=== PATIENT | female | born 1935 | race Caucasian/White ===

== ENCOUNTER → 2016-08-08 | Outpatient (REF) | payer MEDICARE, OTHER ==
[2016-08-08 12:46] LABS: BASO # 0.1 K/mm3 (0.0-0.2); BASO % 0.6 % (0.0-1.0); EOS # 0.1 K/mm3 (0.0-0.50); EOS % 1.3 % (0.0-3.0); LARGE UNSTAINED CELL # 0.1 K/mm3 (0.0-0.4); LARGE UNSTAINED CELL % 1.1 % (0.0-4.0); LYMPH # 1.2 K/mm3 (1.5-4.5); LYMPH % 10.8 % (24.0-44.0); MEAN CORPUSCULAR HGB CONC 32.8 g/dl (32.0-36.5); MEAN CORPUSCULAR VOLUME 106.6 fl (80.0-96.0); MONO # 0.5 K/mm3 (0.0-0.8); NEUTROPHILS # 8.2 K/mm3 (1.8-7.7); NEUTROPHILS % 81.2 % (36.0-66.0); PLATELET COUNT, AUTOMATED 268 k/mm3 (150-450); RED CELL DISTRIBUTION WIDTH 11.9 % (11.5-14.5); WHITE BLOOD COUNT 10.1 K/mm3 (4.0-10.0)
[2016-08-08 13:19] LABS: ALBUMIN 4.1 GM/DL (3.2-5.2); ALBUMIN/GLOBULIN RATIO 1.32 (1.00-1.93); ALKALINE PHOSPHATASE 139 U/L (45-117); ALT/SGPT 19 U/L (12-78); ANION GAP 9 MEQ/L (8-16); AST/SGOT 17 U/L (15-37); BILIRUBIN,TOTAL 0.3 MG/DL (0.2-1.0); BLOOD UREA NITROGEN 21 MG/DL (7-18); CALCIUM LEVEL 9.1 MG/DL (8.8-10.2); CARBON DIOXIDE LEVEL 26 MEQ/L (21-32); CHLORIDE LEVEL 104 MEQ/L (98-107); CHOLESTEROL LEVEL 160 MG/DL (<200); CREATININE FOR GFR 0.81 MG/DL (0.55-1.02); FERRITIN 47 NG/ML (8-252); GLOMERULAR FILTRATION RATE > 60.0 (>39); GLUCOSE, FASTING 128 MG/DL (83-110); PERCENT SATURATION 17.2 % (13.2-37.4); SODIUM LEVEL 139 MEQ/L (136-145); TOTAL IRON BINDING CAPACITY 447 UG/DL (250-450); TOTAL PROTEIN 7.2 GM/DL (6.4-8.2); TRIGLYCERIDES LEVEL 285 MG/DL (<150)
[2016-08-08 13:22] LABS: POTASSIUM SERUM 5.5 MEQ/L (3.5-5.1)
== END ==
LOC: M SFHCADAM 09:21
PROVIDERS: ATTEND Physician Assistant Medical
DX: D75.89 Other specified diseases of blood and blood-forming organs (principal); E78.2 Mixed hyperlipidemia; K21.9 Gastro-esophageal reflux disease without esophagitis; Z79.899 Other long term (current) drug therapy
CPT/HCPCS: 80053; 80061; 82728; 83036; 83550; 84443; 85025; G0463

== ENCOUNTER → 2016-08-11 | Outpatient (REF) | payer MEDICARE, OTHER ==
[2016-08-11 13:18] LABS: ANION GAP 9 MEQ/L (8-16); BLOOD UREA NITROGEN 22 MG/DL (7-18); CALCIUM LEVEL 9.7 MG/DL (8.8-10.2); CARBON DIOXIDE LEVEL 25 MEQ/L (21-32); CHLORIDE LEVEL 105 MEQ/L (98-107); CREATININE FOR GFR 0.75 MG/DL (0.55-1.02); GLOMERULAR FILTRATION RATE > 60.0 (>39); GLUCOSE, FASTING 120 MG/DL (83-110); POTASSIUM SERUM 4.6 MEQ/L (3.5-5.1); SODIUM LEVEL 139 MEQ/L (136-145)
== END ==
LOC: M SFHCADAM 09:42
PROVIDERS: ATTEND Physician Assistant Medical
DX: Z51.81 Encounter for therapeutic drug level monitoring (principal); Z79.899 Other long term (current) drug therapy

== ENCOUNTER → 2016-11-24 | Outpatient (REF) | payer MEDICARE, OTHER ==
[~2016-11-24] MED LIST: AMIL25TA PO; AMIL5TA PO; ATEN50TA2 PO; CHLO1CAP14 PO; CRES20TA PO; DETR10TA PO; GABA-282 PO; GABA-283 PO; GLYCADSU PR; NEXI40CA PO; RAMI10CA PO; RAMI5CA PO; TOLT2TAB12 PO; TYLE1TAB5 PO; TYLE500T78 PO; VITA-110 PO; VITA100066 PO
[2016-11-24 19:21] LABS: BASO # 0.1 K/mm3 (0.0-0.2); BASO % 0.5 % (0.0-1.0); EOS % 0.4 % (0.0-3.0); LARGE UNSTAINED CELL # 0.2 K/mm3 (0.0-0.4); LARGE UNSTAINED CELL % 1.1 % (0.0-4.0); LYMPH % 7.8 % (24.0-44.0); MEAN CORPUSCULAR HEMOGLOBIN 35.3 pg (27.0-33.0); MEAN CORPUSCULAR HGB CONC 33.6 g/dl (32.0-36.5); MEAN CORPUSCULAR VOLUME 105.1 fl (80.0-96.0); MONO # 0.6 K/mm3 (0.0-0.8); MONO % 4.4 % (0.0-5.0); NEUTROPHILS # 11.1 K/mm3 (1.8-7.7); NEUTROPHILS % 85.8 % (36.0-66.0); PLATELET COUNT, AUTOMATED 350 k/mm3 (150-450); RED CELL DISTRIBUTION WIDTH 11.8 % (11.5-14.5); WHITE BLOOD COUNT 12.9 K/mm3 (4.0-10.0)
== END ==
LOC: M SFHCADAM 11:54
PROVIDERS: ATTEND Family Medicine
DX: K62.5 Hemorrhage of anus and rectum (principal)

== ENCOUNTER 2016-11-25 08:36 | Inpatient (IN) | payer MEDICARE, OTHER ==
[~2016-11-25] VITALS: Ht 157.5 cm; Wt 56.8 kg
[2016-11-25] MEDS ORDERED: VITA-110 PO (08:53)
[2016-11-25] MEDS ORDERED: GABA-283 PO (08:53)
[2016-11-25] MEDS ORDERED: ATEN50TA2 PO (08:53)
[2016-11-25] MEDS ORDERED: AMIL5TA PO (08:53)
[2016-11-25] MEDS ORDERED: NEXI40CA PO (08:53)
[2016-11-25] MEDS ORDERED: RAMI10CA PO (08:53)
[2016-11-25] MEDS ORDERED: CRES20TA PO (08:53)
[2016-11-25] MEDS ORDERED: DETR10TA PO (08:53)
[2016-11-25] MEDS ORDERED: PANTOPRAZOLE 40MG INJ (PROTONIX) (C9113) IV ONE (09:30)
--- NOTE | 2016-11-25 09:53 | REP ---
Clinical: GI bleed . Comparison: 01/21/2014 . Findings: The mediastinum and cardiac silhouette are stable and within normal limits for portable technique. The lung gauthier are clear without acute consolidation, effusion, or pneumothorax. Skeletal structures are intact. Impression: No acute cardiopulmonary process appreciated. Signed by Seamus Shi MD 11/25/2016 09:45 A
[2016-11-25] MEDS: NS 1,000 ML IV SCH ×2 (10:18→19:02)
[2016-11-25] MEDS ORDERED: AMIL25TA PO (10:19)
[2016-11-25] MEDS ORDERED: TYLE500T78 PO (10:19)
[2016-11-25] MEDS ORDERED: CHLO1CAP14 PO (10:19)
[2016-11-25] MEDS ORDERED: VITA100066 PO (10:19)
[2016-11-25] MEDS ORDERED: TYLE1TAB5 PO (10:19)
[2016-11-25] MEDS ORDERED: GABA-282 PO (10:19)
[2016-11-25] MEDS ORDERED: RAMI5CA PO (10:19)
[2016-11-25] MEDS ORDERED: TOLT2TAB12 PO (10:19)
[2016-11-25 10:24] LABS: BASO % 0.3 % (0.0-1.0); EOS # 0.1 K/mm3 (0.0-0.50); EOS % 0.8 % (0.0-3.0); LARGE UNSTAINED CELL # 0.1 K/mm3 (0.0-0.4); LARGE UNSTAINED CELL % 0.6 % (0.0-4.0); LYMPH # 0.9 K/mm3 (1.5-4.5); LYMPH % 8.3 % (24.0-44.0); MEAN CORPUSCULAR HEMOGLOBIN 34.7 pg (27.0-33.0); MEAN CORPUSCULAR HGB CONC 33.6 g/dl (32.0-36.5); MEAN CORPUSCULAR VOLUME 103.2 fl (80.0-96.0); MONO # 0.4 K/mm3 (0.0-0.8); MONO % 3.6 % (0.0-5.0); NEUTROPHILS # 8.8 K/mm3 (1.8-7.7); NEUTROPHILS % 86.4 % (36.0-66.0); PLATELET COUNT, AUTOMATED 276 k/mm3 (150-450); RED CELL DISTRIBUTION WIDTH 12.2 % (11.5-14.5); WHITE BLOOD COUNT 10.2 K/mm3 (4.0-10.0)
[2016-11-25 10:29] LABS: INR 0.91
[2016-11-25 10:55] LABS: ALBUMIN 4.1 GM/DL (3.2-5.2); ALBUMIN/GLOBULIN RATIO 1.05 (1.00-1.93); ALKALINE PHOSPHATASE 128 U/L (45-117); ALT/SGPT 18 U/L (12-78); ANION GAP 9 MEQ/L (8-16); AST/SGOT 18 U/L (15-37); BILIRUBIN,DIRECT 0.1 MG/DL (0.0-0.2); BILIRUBIN,TOTAL 0.4 MG/DL (0.2-1.0); BLOOD UREA NITROGEN 14 MG/DL (7-18); CALCIUM LEVEL 9.8 MG/DL (8.8-10.2); CARBON DIOXIDE LEVEL 26 MEQ/L (21-32); CHLORIDE LEVEL 105 MEQ/L (98-107); CREATININE FOR GFR 0.71 MG/DL (0.55-1.02); GLOMERULAR FILTRATION RATE > 60.0 (>39); GLUCOSE, FASTING 123 MG/DL (83-110); POTASSIUM SERUM 4.5 MEQ/L (3.5-5.1); SODIUM LEVEL 140 MEQ/L (136-145)
[2016-11-25] MEDS ORDERED: GASTROGRAFIN SOLUTION 30ML PO ONE (11:55)
[2016-11-25] MEDS ORDERED: GASTROGRAFIN SOLUTION 30ML (Q9963) PO ONE (12:25)
[2016-11-25] MEDS ORDERED: NICOTINE 21MG/24HR 1 EA TRANSDERMAL TD PRN (14:30)
[2016-11-25] MEDS: ACETAMINOPHEN 500 MG TAB PO SCH ×2 (16:00→20:20)
[2016-11-25 18:30] VITALS: BP 197/88
--- NOTE | 2016-11-25 19:35 | ECGEPIP ---
Stationary ECG Study [facility] - ED Test Date: 2016-11-25 Pat Name: JAYESH ANTOINE Department: Room: - Gender: F Heavy Equipment Operator: deepika : [id number] Requested By: Bay García Order Number: [id number] Reading MD: Bay García Measurements Intervals [place] Rate: 66 P: 58 [place]: 168 QRS: 24 QRSD: 105 T: 34 QT: 420 QTc: 441 Interpretive Statements SINUS RHYTHM WITH SINUS ARRHYTHMIA NONSPECIFIC ST T WAVE CHANGES NO OLD ECG FOR COMPARISON Electronically Signed On 11-25-2016 19:35:22 EDT by Bay García
[2016-11-25] MEDS: RAMIPRIL 5 MG CAP PO SCH (20:21)
[2016-11-25] MEDS: LIBRAX PO SCH (20:21)
[2016-11-25] MEDS: TOLTERODINE (DETROL) 2 MG TAB PO SCH (20:21)
[2016-11-25] MEDS: GABAPENTIN 300 MG CAP PO SCH (20:21)
[2016-11-25] MEDS ORDERED: VITAMIN D 1,000 INTERNATIONAL UNITS TABLET PO SCH (21:00)
[2016-11-25] MEDS ORDERED: ROSUVASTATIN 10 MG TAB (CRESTOR) PO SCH (21:00)
[2016-11-25] MEDS ORDERED: ATENOLOL 50 MG TAB PO SCH (21:00)
[2016-11-25 22:00] VITALS: BP 130/61
[2016-11-26] MEDS: NS 1,000 ML IV SCH ×2 (04:39→05:16)
[2016-11-26 06:00] VITALS: BP 148/67
[2016-11-26 07:12] LABS: MEAN CORPUSCULAR HEMOGLOBIN 35.2 pg (27.0-33.0); MEAN CORPUSCULAR HGB CONC 33.8 g/dl (32.0-36.5); MEAN CORPUSCULAR VOLUME 104.2 fl (80.0-96.0); RED CELL DISTRIBUTION WIDTH 11.9 % (11.5-14.5); WHITE BLOOD COUNT 7.5 K/mm3 (4.0-10.0)
[2016-11-26 07:26] LABS: ALBUMIN 3.4 GM/DL (3.2-5.2); ALBUMIN/GLOBULIN RATIO 1.03 (1.00-1.93); ALKALINE PHOSPHATASE 93 U/L (45-117); ALT/SGPT 18 U/L (12-78); ANION GAP 8 MEQ/L (8-16); AST/SGOT 21 U/L (15-37); BILIRUBIN,TOTAL 0.4 MG/DL (0.2-1.0); BLOOD UREA NITROGEN 11 MG/DL (7-18); CALCIUM LEVEL 7.9 MG/DL (8.8-10.2); CARBON DIOXIDE LEVEL 24 MEQ/L (21-32); CHLORIDE LEVEL 111 MEQ/L (98-107); CREATININE FOR GFR 0.63 MG/DL (0.55-1.02); FERRITIN 42 NG/ML (8-252); GLOMERULAR FILTRATION RATE > 60.0 (>39); GLUCOSE, FASTING 113 MG/DL (83-110); PERCENT SATURATION 29.7 % (13.2-45.0); POTASSIUM SERUM 4.1 MEQ/L (3.5-5.1); SODIUM LEVEL 143 MEQ/L (136-145); TOTAL IRON BINDING CAPACITY 367 UG/DL (250-450); TOTAL PROTEIN 6.7 GM/DL (6.4-8.2)
[2016-11-26] MEDS: TOLTERODINE (DETROL) 2 MG TAB PO SCH (08:42)
[2016-11-26] MEDS: GABAPENTIN 300 MG CAP PO SCH (08:42)
[2016-11-26 08:43] VITALS: BP 148/67
[2016-11-26] MEDS: RAMIPRIL 5 MG CAP PO SCH (08:43)
[2016-11-26] MEDS: LIBRAX PO SCH (08:43)
[2016-11-26] MEDS: ACETAMINOPHEN 500 MG TAB PO SCH (08:43)
[2016-11-26] MEDS ORDERED: aMILoride 5 MG TAB PO SCH (09:00)
[2016-11-26] MEDS ORDERED: PANTOPRAZOLE 40MG TAB (PROTONIX) PO SCH (09:00)
--- NOTE | 2016-11-26 20:42 | CR ---
DATE OF CONSULTATION: 11/25/2016 REASON FOR CONSULTATION: Lower GI bleeding. HISTORY OF PRESENT ILLNESS: The patient is a 81-year-old female who presented to her primary clinic on 11/24/2016, with complaints of lower GI bleeding. She does have a history of diverticulosis and with this painless bleeding, it was assumed that this was likely a diverticular bleed. She was advised that if this continued to come to the emergency room for evaluation. Since her visit to the office she has had four more episodes of this bleeding, so she came into the ER for evaluation. Her hemoglobin has been stable, it was 14 on admission, so she did not require any transfusions. The plan was to admit her to the hospital with a clear liquid diet and monitor her for any continued bleeding. I was asked to evaluate in case the bleeding did not stop and in case she were to need a colonoscopy. She denies having any problems with bleeding like this in the past. She has no clots or melanotic stools. It is all bright red blood. No pain with bowel movements. Denies any nausea or vomiting. No fevers or chills. No recent trauma or travel or change in diet. PAST MEDICAL HISTORY: Hyperlipidemia, hypertension, interstitial cystitis peripheral neuropathy, gastroesophageal reflux disease, osteoporosis. ALLERGIES: BACTRIM. PAST SURGICAL HISTORY: Back surgery, EGD and colonoscopy in 2013. FAMILY HISTORY: Noncontributory. SOCIAL HISTORY: Denies any drug or alcohol abuse. Smokes 6-10 cigarettes a day. REVIEW OF SYSTEMS: Pertinent positives and negative as stated in the HPI. PHYSICAL EXAMINATION: General: Patient alert and oriented times three. No acute distress. Vital signs: Temperature 98.3, pulse 72, respirations 16, blood pressure 182/88, pulse oximetry 96% on room air. HEENT: Pupils equally round and reactive to light and accommodation. Heart: S1, S2, regular rate and rhythm. Lungs: Clear to auscultation bilaterally. Abdomen: Soft, nontender, nondistended. Bowel sounds positive. Extremities: No clubbing, cyanosis or edema. LABORATORY DATA: White count 10.2, hemoglobin 14, platelets 276, INR 0.91, sodium 140, potassium of 4.5, creatinine 0.71. ASSESSMENT/PLAN: The patient is a 81-year-old female with bright red blood per rectum likely secondary to a lower GI bleed from diverticulosis. Recommendation at this time is to keep her on a clear liquid diet and monitor her for 24 hours with serial hemoglobins and hematocrits. If she shows signs of continued bloody bowel movements and continued bleeding, she may be a candidate for lower endoscopy. However, as a diverticular bleed, there is a good chance that this will resolve on its own without any intervention necessary. I will continue to monitor the patient during her hospital stay with further recommendations to follow.
--- NOTE | 2016-11-27 00:50 | DS.PDOC ---
Discharge Summary General Date of Admission Nov 25, 2016 at 14:26 Date of Discharge 11/26/2016 Primary Care Physician: GODWIN CHAMORRO PA-C Attending Physician: Jerardo Cristobal MD Specialist/Consultants Involve: JENNIFER BRONSON DO Discharge Summary ADMITTING DIAGNOSES: 1. Bright red blood per rectum. 2. Nicotine dependence, cigarette. 3. GERD. 4. Hypertension 5. Mixed hyperlipidemia DISCHARGE DIAGNOSES: 1. Bright red blood per rectum, resolved. 2. Cigarette nicotine dependence. 3. GERD. 4. Hypertension. 5. Mixed hyperlipidemia PROCEDURES PERFORMED DURING STAY: None. ADMISSION HISTORY: Ms. Guy came to the emergency department for evaluation of a 2 day history of bright red blood per rectum. This is the first time this had ever happened to her. Please see the admission history and physical (on eCW ) for the remaining details. HOSPITAL COURSE: Ms. Guy came to the ER the day after she had been seen in the clinic. She had episodes of bright red blood per rectum on each of these days. Dr. Bronson was consulted he reviewed her colonoscopy information from 2013. He felt the bleeding was likely diverticular or possibly from internal hemorrhoids. He recommended conservative therapy. She did have 2 small bowel movements while in the emergency department. Fortunately after that she did not have any more bloody bowel movements. After about 24 hours with no bloody bowel movements her diet was advanced. She tolerated a regular diet. Her hemoglobin had fallen about 2 g down to 12.6 during the admission. Once she was tolerating a regular diet she was offered the option of staying overnight to verify stability of her hemoglobin or going home with lab follow-up in 2 days. She preferred to go home. DISCHARGE CONDITION: Stable. FOLLOW-UP: An appointment was scheduled with TARA Rodriguez on 11/30/16 at 11 :00 prior to discharge. DIET: Heart healthy. ACTIVITY: As tolerated. DISCHARGE MEDICATIONS: Please see below. ALLERGIES: Please see below. LABORATORY DATA: Please see below. IMAGING: Chest x-ray was done on 11/25/16 DISCHARGE INSTRUCTIONS: 1. Please get a CBC done on 11/28/16 at the [facility]. The patient was sent home with an order. ITEMS TO FOLLOWUP ON ON OUTPATIENT: 1.? Follow with Dr. Bronson for repeat colonoscopy versus continued monitoring. Vital Signs/I&Os Vital Signs Date Time Temp Pulse Resp B/P (MAP) Pulse Ox O2 Delivery O2 Flow Rate FiO2 11/26/16 08:43 148/67 11/26/16 06:00 98.9 61 20 92 Room Air I&O- Last 24 Hours up to 6 AM 11/27/16 05:59 Intake Total 120 ml Output Total 1250 ml Balance -1130 ml Laboratory Data Labs 24H Laboratory Tests 2 11/26/16 06:45: Anion Gap 8, Glomerular Filtration Rate > 60.0, Blood Urea Nitrogen 11, Creatinine 0.63, Sodium Level 143, Potassium Level 4.1, Chloride Level 111H, Carbon Dioxide Level 24, Calcium Level 7.9#L, Aspartate Amino Transf (AST/SGOT) 21, Alanine Aminotransferase (ALT/SGPT) 18, Alkaline Phosphatase 93, Total Bilirubin 0.4, Total Protein 6.7, Albumin 3.4, Iron Level 109, Total Iron Binding Capacity 367, Transferrin % Saturation 29.7, Ferritin 42, Albumin/ Globulin Ratio 1.03 CBC/BMP Laboratory Tests 11/26/16 06:45 Red Blood Count 3.57 L, Mean Corpuscular Volume 104.2 H, Mean Corpuscular Hemoglobin 35.2 H, Mean Corpuscular Hemoglobin Concent 33.8, Red Cell Distribution Width 11.9, Calcium Level 7.9 #L, Aspartate Amino Transf (AST/SGOT ) 21, Alanine Aminotransferase (ALT/SGPT) 18, Alkaline Phosphatase 93, Total Bilirubin 0.4, Total Protein 6.7, Albumin 3.4 Discharge Medications Scheduled (Tylenol Pm Extra Strength 500-25 mg) 1 Tab Tab, 1 TAB PO QHS, (Reported) Acetaminophen (Tylenol Extra Strength) 500 Mg Tab, 500 MG PO TID, (Reported) AM, NOON, HS Amiloride HCl (Amiloride HCl) 2.5 Mg Tab, 2.5 MG PO DAILY, (Reported) Atenolol (Atenolol) 50 Mg Tab, 50 MG PO QHS, (Reported) Chlordiazepoxide/Clidinium (Chlordiazepoxide HCl/Clid 2.5-5 mg) 1 Cap Cap, 1 CAP PO BID, (Reported) Cholecalciferol (Vitamin D) 1,000 Unit Tab, 1,000 UNIT PO QHS, (Reported) Esomeprazole Magnesium Trihydr (Nexium) 40 Mg Cap, 40 MG PO DAILY, (Reported) Gabapentin (Gabapentin) 300 Mg Cap, 300 MG PO BID, (Reported) Ramipril (Ramipril) 5 Mg Cap, 5 MG PO BID, (Reported) Rosuvastatin Calcium (Crestor) 20 Mg Tab, 20 MG PO QHS, (Reported) Tolterodine Tartrate (Tolterodine Tartrate) 2 Mg Tab, 2 MG PO BID, (Reported) Allergies Coded Allergies: Sulfamethoxazole w/Trimethoprim (Verified Allergy, Unknown, 11/25/16) Jerardo Cristobal MD Nov 27, 2016 00:50
== END 2016-11-26 19:10 | disposition home or self-care (01) | DRG 379 ==
LOC: M ED 08:36 → M ED INP 14:26 → UNDODISIN 15:30 → M MS5PR 18:14
PROVIDERS: ADMIT Family Medicine; ATTEND Family Medicine
DX: K62.5 Hemorrhage of anus and rectum (principal); E78.2 Mixed hyperlipidemia; I10 Essential (primary) hypertension; G62.9 Polyneuropathy, unspecified; K21.9 Gastro-esophageal reflux disease without esophagitis; M81.0 Age-related osteoporosis without current pathological fracture; F17.210 Nicotine dependence, cigarettes, uncomplicated; Z79.899 Other long term (current) drug therapy; Z88.2 Allergy status to sulfonamides

== ENCOUNTER → 2016-11-28 | Outpatient (REF) | payer MEDICARE, OTHER ==
[2016-11-28 14:25] LABS: MEAN CORPUSCULAR HEMOGLOBIN 35.2 pg (27.0-33.0); MEAN CORPUSCULAR HGB CONC 33.9 g/dl (32.0-36.5); MEAN CORPUSCULAR VOLUME 103.8 fl (80.0-96.0); RED CELL DISTRIBUTION WIDTH 11.6 % (11.5-14.5); WHITE BLOOD COUNT 9.4 K/mm3 (4.0-10.0)
== END ==
LOC: M LABDRWAD 13:42
PROVIDERS: ATTEND Family Medicine
DX: K92.2 Gastrointestinal hemorrhage, unspecified (principal)

== ENCOUNTER → 2016-12-29 | Outpatient (REF) | payer MEDICARE, OTHER | LOC: M SFHCADAM 09:32 | PROVIDERS: ATTEND Physician Assistant Medical | DX: R31.9 Hematuria, unspecified (principal); N30.10 Interstitial cystitis (chronic) without hematuria; K59.01 Slow transit constipation ==

== ENCOUNTER 2017-02-04 10:37 | Emergency (ER) | payer MEDICARE, OTHER ==
[~2017-02-04] VITALS: Ht 157.5 cm; Wt 56.8 kg
[~2017-02-04 10:37] MED LIST changes: -GLYCADSU PR
[2017-02-04] MEDS ORDERED: NS 1,000 ML IV ONE (12:45)
[2017-02-04 13:14] LABS: BASO # 0.1 10^3/uL (0.0-0.2); BASO % 0.6 % (0.0-1.0); EOS # 0.1 10^3/uL (0.0-0.50); EOS % 0.8 % (0.0-3.0); IMMATURE GRANULOCYTE % 0.5 % (0-0); LYMPH # 1.3 10^3/uL (1.5-4.5); LYMPH % 12.4 % (24.0-44.0); MEAN CORPUSCULAR HEMOGLOBIN 34.1 pg (27.0-33.0); MEAN CORPUSCULAR HGB CONC 32.2 g/dl (32.0-36.5); MEAN CORPUSCULAR VOLUME 105.9 fl (80.0-96.0); MONO # 0.7 10^3/uL (0.0-0.8); MONO % 6.4 % (0.0-5.0); NEUTROPHILS # 8.6 10^3/uL (1.8-7.7); NEUTROPHILS % 79.3 % (36.0-66.0); PLATELET COUNT, AUTOMATED 346 10^3/uL (150-450); WHITE BLOOD COUNT 10.8 10^3/uL (4.0-10.0)
[2017-02-04 13:35] LABS: INR 0.93
[2017-02-04 13:37] LABS: ANION GAP 6 MEQ/L (8-16); BLOOD UREA NITROGEN 9 MG/DL (7-18); CALCIUM LEVEL 9.4 MG/DL (8.8-10.2); CARBON DIOXIDE LEVEL 30 MEQ/L (21-32); CHLORIDE LEVEL 105 MEQ/L (98-107); GLOMERULAR FILTRATION RATE > 60.0 (>39); GLUCOSE, FASTING 104 MG/DL (83-110); POTASSIUM SERUM 3.5 MEQ/L (3.5-5.1); SODIUM LEVEL 141 MEQ/L (136-145)
[2017-02-04] MEDS ORDERED: ISOVUE-370 76% 100ML VIAL (Q9967) As Ordered ONE (13:37)
--- NOTE | 2017-02-04 14:55 | REP ---
CT ABDOMEN AND PELVIS WITH CONTRAST: HISTORY: Abdominal pain. CONTRAST: Isovue 370, 100 mL. Multiple cysts are present in the kidneys. These range from 0.4 to 4.5 cm in size. A right extrarenal pelvis is present. The liver, gallbladder, pancreas, spleen, and adrenal glands are normal in appearance. There is no mass, adenopathy or free fluid. The visualized lungs are clear. The urinary bladder and uterus are normal in appearance. Degenerative change is present in the spine. IMPRESSION: Multiple bilateral renal cysts. Signed by Dilan Ritter MD 02/04/2017 03:47 P
[2017-02-04] MEDS ORDERED: GLYCADSU PR (15:28)
[2017-02-04 15:52] VITALS: BP 195/103
== END 2017-02-04 15:57 | disposition home or self-care (01) ==
LOC: M ED 10:37
DX: K59.00 Constipation, unspecified (principal); K56.41 Fecal impaction; I10 Essential (primary) hypertension; Z72.0 Tobacco use
CPT/HCPCS: 74177; 80048; 81001; 85025; 85610; 96360; 96361; 99284; Q9967

== ENCOUNTER → 2017-02-22 | Outpatient (REF) | payer MEDICARE, OTHER ==
[~2017-02-22] MED LIST changes: +AMIT25TA PO; +GLYCADSU PR
== END ==
LOC: M SFHCADAM 14:23
PROVIDERS: ATTEND Physician Assistant Medical
DX: N30.10 Interstitial cystitis (chronic) without hematuria (principal)

== ENCOUNTER 2017-03-01 12:14 | Day surgery (SDC) | payer MEDICARE, OTHER ==
[~2017-03-01] VITALS: Ht 157.5 cm; Wt 55.8 kg
[~2017-03-01 12:14] MED LIST changes: +OFLOXACIN 0.3 % (OCUFLOX) OPTH SOL 5ML OS ONE; +PHENYLEPHRINE 2.5% OPHTH SOL 2ML OS ONE; +PROPARACAINE 0.5% OPHTH SOL 15ML OS ONE; +TROPICAMIDE 1% OPHTH SOLN 2ML OS ONE
[2017-03-01] MEDS ORDERED: POVIDONE-IODINE 5% OPHTH PREP SOL 30ML As Ordered ONE (13:40)
[2017-03-01] MEDS ORDERED: ACETYLCHOLINE OPHTH SOLN 1% 2ML (MIOCHOL-E) As Ordered ONE (13:40)
[2017-03-01] MEDS ORDERED: BALANCED SALT IRRIGATION SOLUTION 500ML BAG (FOR OR EYE MACHINE) As Ordered ONE (13:40)
[2017-03-01] MEDS ORDERED: DUOVISC (0.50ML VISCOAT/0.55ML PROVISC) OPHTH KIT As Ordered ONE (13:41)
[2017-03-01] MEDS ORDERED: LIDOCAINE 0.75%/EPINEPHRINE 0.025% IN BSS 1ML SYR INTRACAMERAL (OR ONLY) As Ordered ONE (13:41)
[2017-03-01] MEDS ORDERED: CEFUROXIME 1MG/0.1ML INTRACAMERAL INJ As Ordered ONE (13:41)
[2017-03-01] MEDS ORDERED: MIDAZOLAM INJ 2 MG/2 ML VIAL (J2250) As Ordered ONE (14:06)
[2017-03-01] MEDS ORDERED: fentaNYL 100 MCG/2 ML INJECTION (J3010) As Ordered ONE (14:06)
[2017-03-01 15:20] VITALS: BP 148/68
== END 2017-03-01 15:21 | disposition home or self-care (01) ==
LOC: M SDC 12:14
PROVIDERS: ATTEND Ophthalmology
DX: H25.12 Age-related nuclear cataract, left eye (principal); I10 Essential (primary) hypertension; E78.5 Hyperlipidemia, unspecified; K59.00 Constipation, unspecified; Z79.899 Other long term (current) drug therapy; Z88.2 Allergy status to sulfonamides
CPT/HCPCS: 66984; J2250; V2632

== ENCOUNTER → 2017-03-02 | Outpatient (REF) | payer MEDICARE, OTHER ==
[~2017-03-02] MED LIST changes: -OFLOXACIN 0.3 % (OCUFLOX) OPTH SOL 5ML OS ONE; -PHENYLEPHRINE 2.5% OPHTH SOL 2ML OS ONE; -PROPARACAINE 0.5% OPHTH SOL 15ML OS ONE; -TROPICAMIDE 1% OPHTH SOLN 2ML OS ONE
--- NOTE | 2017-03-02 19:36 | RO ---
DATE OF PROCEDURE: 03/02/2017 PREOPERATIVE DIAGNOSIS: Visually significant nuclear sclerotic cataract left eye. POSTOPERATIVE DIAGNOSIS: Visually significant nuclear sclerotic cataract left eye. PROCEDURE: Cataract extraction with use of phacoemulsification and placement of intraocular lens, AU00T0 21.5, left eye. SURGEON: Demond Pollard DO KAITARA TARAKA: ANESTHESIA: Local with monitored anesthesia care (MAC). COMPLICATIONS: None. POSTOPERATIVE CONDITION: Stable. INDICATION FOR SURGERY: Blurred vision left eye affecting patient's activities of daily living. DESCRIPTION OF PROCEDURE: The patient was seen in the preoperative area and properly identified. The correct operative eye was identified and marked. Attention was turned to that eye. The patient received topical antibiotics in the preoperative area. The patient then received topical dilating drops consisting of tropicamide and phenylephrine. The patient was then transferred to the operating room. The correct side was re-identified. The patient received topical anesthetics and antibiotics on the surface of the eye. The eye was prepped and draped in a sterile fashion. The upper and lower eyelids were isolated with Tegaderm tape, and the lids were held open with an adjustable speculum. Using a sideport blade, a paracentesis incision was made. Intraocular preservative-free lidocaine was then injected into the anterior chamber. Viscoelastic was then injected into the anterior chamber through the paracentesis. Using a 2.4 mm sharp-tipped keratome, the anterior chamber was entered via a temporal clear corneal incision. A continuous curvilinear capsulorrhexis was created with the aid of a 26-gauge cystotome and Utrata forceps. Hydrodissection was performed with balanced salt solution (BSS) on a blunt cannula until the nucleus was freely mobile. The crystalline lens was phacoemulsified and aspirated. Additional cohesive viscoelastic was placed into the capsular bag to deepen it. An AU00T0 21.5 lens was placed into the capsular bag and confirmed by visualizing the continuous curvilinear capsulorrhexis. Additional irrigation and aspiration was used to remove cortical material and remaining viscoelastic. The clear corneal incision was hydrated with BSS on a blunt cannula. The lens was well positioned. The incisions were then tested for leaks and found to be negative. The eye was then palpated for appropriate pressure and adjusted accordingly with BSS. The eyelid speculum was carefully removed. A shield was placed over the eye. The patient tolerated the procedure well and was discharged to the recovery unit in a stable condition. WILNER
== END ==
LOC: M SFHCADAM 14:38
PROVIDERS: ATTEND Physician Assistant Medical
DX: N30.10 Interstitial cystitis (chronic) without hematuria (principal)

== ENCOUNTER → 2017-03-15 | Outpatient (REF) | payer MEDICARE, OTHER ==
[~2017-03-15] MED LIST changes: +ACET-683 PO; +BROM0.07 OS; +MACR100C43 PO; +PREDOPD OS
== END ==
LOC: M SFHCADAM 12:03
PROVIDERS: ATTEND Physician Assistant Medical
DX: R30.0 Dysuria (principal)

== ENCOUNTER 2017-03-19 18:11 | Inpatient (IN) | payer MEDICARE, OTHER ==
[2017-03-19 19:05] LABS: BASO % 0.3 % (0.0-1.0); EOS # 0.4 10^3/uL (0.0-0.50); IMMATURE GRANULOCYTE # 0.1 10^3/uL (0-0); IMMATURE GRANULOCYTE % 0.5 % (0-0); LYMPH # 0.6 10^3/uL (1.5-4.5); LYMPH % 5.2 % (24.0-44.0); MEAN CORPUSCULAR HEMOGLOBIN 33.2 pg (27.0-33.0); MEAN CORPUSCULAR HGB CONC 32.5 g/dl (32.0-36.5); MEAN CORPUSCULAR VOLUME 102.3 fl (80.0-96.0); MONO # 0.9 10^3/uL (0.0-0.8); NEUTROPHILS # 10.4 10^3/uL (1.8-7.7); PLATELET COUNT, AUTOMATED 384 10^3/uL (150-450); RED CELL DISTRIBUTION WIDTH 11.9 % (11.5-14.5); WHITE BLOOD COUNT 12.4 10^3/uL (4.0-10.0)
[2017-03-19 19:18] LABS: INR 0.95
[2017-03-19] MEDS: NS 1,000 ML IV (19:24)
[2017-03-19] MEDS: MORPHINE 4 MG/ML 1ML SYRINGE IV ×2 (19:25→21:37)
[2017-03-19 19:30] LABS: ALBUMIN 3.2 GM/DL (3.2-5.2); ALBUMIN/GLOBULIN RATIO 0.91 (1.00-1.93); ALKALINE PHOSPHATASE 166 U/L (45-117); ALT/SGPT 13 U/L (12-78); ANION GAP 8 MEQ/L (8-16); AST/SGOT 16 U/L (7-37); BILIRUBIN,DIRECT 0.1 MG/DL (0.0-0.2); BILIRUBIN,TOTAL 0.3 MG/DL (0.2-1.0); BLOOD UREA NITROGEN 9 MG/DL (7-18); CALCIUM LEVEL 8.2 MG/DL (8.8-10.2); CARBON DIOXIDE LEVEL 26 MEQ/L (21-32); CHLORIDE LEVEL 108 MEQ/L (98-107); CREATININE FOR GFR 0.43 MG/DL (0.55-1.02); GLOMERULAR FILTRATION RATE > 60.0 (>39); GLUCOSE, FASTING 129 MG/DL (83-110); POTASSIUM SERUM 3.5 MEQ/L (3.5-5.1); SODIUM LEVEL 142 MEQ/L (136-145); TOTAL PROTEIN 6.7 GM/DL (6.4-8.2)
[2017-03-19 19:30] LABS: LACTIC ACID SEPSIS PROTOCOL 0.8 MMOL/L (0.4-2.0)
[2017-03-19] MEDS ORDERED: ISOVUE-370 76% 100ML VIAL (Q9967) As Ordered (19:32)
[2017-03-19 19:33] LABS: KETONE, URINE AUTO RFX 1+ mg/dL (NEGATIVE); NITRITE, URINE AUTO RFX NEGATIVE (NEGATIVE); RBC, URINE AUTO RFX 30 /HPF (0-3); SPECIFIC GRAVITY UR AUTO RFX 1.012 (1.002-1.035); SQUAM EPITHELIAL CELL UR AURFX 1 /HPF (0-6)
[2017-03-19 19:34] LABS: LEUKOCYTE ESTERASE UR AUTO RFX 1+ (NEGATIVE); WBC, URINE AUTO RFX 19 /HPF (0-3)
[2017-03-19] MEDS ORDERED: CIPROFLOXACIN 500 MG TAB PO (20:15)
[2017-03-19] MEDS: hydrALAZINE INJ 20 MG/ML VIAL IV (21:00)
[2017-03-19] MEDS: prednisoLONE ACET 1% OPHTH SUSP 5ML OS (21:00)
[2017-03-19] MEDS: RAMIPRIL 5 MG CAP PO (21:38)
[2017-03-19] MEDS ORDERED: MORPHINE 2 MG/ML 1ML SYRINGE IV (23:30)
[2017-03-20] MEDS ORDERED: PANTOPRAZOLE 40MG INJ (PROTONIX) (C9113) IV
[2017-03-20] MEDS: ONDANSETRON 4MG/2ML VIAL (J2405) IV ×2 (00:07→08:20)
[2017-03-20] MEDS: PIPERACILLIN/TAZOBACTAM SOD 3.375 GM in APPROPRIATE DILUENT 1 EA IV ×5 (00:14→23:59)
[2017-03-20] MEDS: NS 1,000 ML IV ×4 (00:15→20:03)
[2017-03-20 05:12] LABS: MEAN CORPUSCULAR HEMOGLOBIN 32.9 pg (27.0-33.0); MEAN CORPUSCULAR HGB CONC 32.1 g/dl (32.0-36.5); MEAN CORPUSCULAR VOLUME 102.5 fl (80.0-96.0); PLATELET COUNT, AUTOMATED 380 10^3/uL (150-450); WHITE BLOOD COUNT 11.8 10^3/uL (4.0-10.0)
[2017-03-20 05:36] LABS: ALBUMIN 2.7 GM/DL (3.2-5.2); ALBUMIN/GLOBULIN RATIO 0.71 (1.00-1.93); ALKALINE PHOSPHATASE 132 U/L (45-117); ALT/SGPT 11 U/L (12-78); AMYLASE 109 U/L (25-115); ANION GAP 8 MEQ/L (8-16); AST/SGOT 11 U/L (7-37); BILIRUBIN,TOTAL 0.2 MG/DL (0.2-1.0); BLOOD UREA NITROGEN 7 MG/DL (7-18); CALCIUM LEVEL 7.6 MG/DL (8.8-10.2); CARBON DIOXIDE LEVEL 25 MEQ/L (21-32); CHLORIDE LEVEL 112 MEQ/L (98-107); CREATININE FOR GFR 0.42 MG/DL (0.55-1.02); GLOMERULAR FILTRATION RATE > 60.0 (>39); GLUCOSE, FASTING 124 MG/DL (83-110); POTASSIUM SERUM 3.2 MEQ/L (3.5-5.1); SODIUM LEVEL 145 MEQ/L (136-145); TOTAL PROTEIN 6.5 GM/DL (6.4-8.2)
[2017-03-20] MEDS: PANTOPRAZOLE 40MG INJ (PROTONIX) (C9113) IV (08:19)
[2017-03-20] MEDS: prednisoLONE ACET 1% OPHTH SUSP 5ML OS ×3 (08:20→20:27)
[2017-03-20] MEDS: hydrALAZINE INJ 20 MG/ML VIAL IV ×4 (08:20→20:27)
[2017-03-20 10:04] LABS: MAGNESIUM LEVEL 1.6 MG/DL (1.8-2.4)
[2017-03-20] MEDS: PROMETHAZINE INJ 25 MG/ML VIAL (J2550) IV (10:11)
[2017-03-20] MEDS: KCL 10MEQ IN 100ML SWI (KRUN) 10 MEQ in APPROPRIATE DILUENT 1 EA IV ×5 (11:00→20:26)
[2017-03-20] MEDS ORDERED: PROMETHAZINE INJ 25 MG/ML VIAL (J2550) IV (13:30)
[2017-03-20] MEDS: ACETAMINOPHEN 500 MG TAB PO ×2 (13:31→20:26)
[2017-03-20] MEDS ORDERED: KCL 10MEQ IN STERILE WATER 100ML As Ordered (20:18)
[2017-03-21] MEDS: NS 1,000 ML IV (03:15)
[2017-03-21 05:12] LABS: MEAN CORPUSCULAR HEMOGLOBIN 32.6 pg (27.0-33.0); MEAN CORPUSCULAR HGB CONC 31.3 g/dl (32.0-36.5); PLATELET COUNT, AUTOMATED 364 10^3/uL (150-450); RED CELL DISTRIBUTION WIDTH 12.4 % (11.5-14.5); WHITE BLOOD COUNT 11.5 10^3/uL (4.0-10.0)
[2017-03-21 05:31] LABS: ALBUMIN 2.5 GM/DL (3.2-5.2); ALBUMIN/GLOBULIN RATIO 0.66 (1.00-1.93); ALKALINE PHOSPHATASE 123 U/L (45-117); ALT/SGPT 11 U/L (12-78); ANION GAP 9 MEQ/L (8-16); AST/SGOT 11 U/L (7-37); BILIRUBIN,TOTAL 0.3 MG/DL (0.2-1.0); BLOOD UREA NITROGEN 7 MG/DL (7-18); CALCIUM LEVEL 7.9 MG/DL (8.8-10.2); CARBON DIOXIDE LEVEL 23 MEQ/L (21-32); CHLORIDE LEVEL 112 MEQ/L (98-107); GLOMERULAR FILTRATION RATE > 60.0 (>39); GLUCOSE, FASTING 90 MG/DL (83-110); POTASSIUM SERUM 3.1 MEQ/L (3.5-5.1); SODIUM LEVEL 144 MEQ/L (136-145); TOTAL PROTEIN 6.3 GM/DL (6.4-8.2)
[2017-03-21] MEDS: PIPERACILLIN/TAZOBACTAM SOD 3.375 GM in APPROPRIATE DILUENT 1 EA IV ×2 (05:36→13:06)
[2017-03-21] MEDS: KCL 10MEQ IN 100ML SWI (KRUN) 10 MEQ in APPROPRIATE DILUENT 1 EA IV ×4 (06:12→11:17)
[2017-03-21] MEDS: PANTOPRAZOLE 40MG INJ (PROTONIX) (C9113) IV (10:03)
[2017-03-21] MEDS: hydrALAZINE INJ 20 MG/ML VIAL IV ×2 (10:04→13:08)
[2017-03-21] MEDS: MAG SULF 1GM/100ML (MAG RUN) 1 GM in APPROPRIATE DILUENT 1 EA IV (10:04)
[2017-03-21] MEDS: prednisoLONE ACET 1% OPHTH SUSP 5ML OS ×3 (10:05→20:01)
[2017-03-21] MEDS: POTASSIUM CHLORIDE 10 MEQ SR TABLET PO (13:07)
[2017-03-21] MEDS: RAMIPRIL 5 MG CAP PO ×2 (15:16→19:59)
[2017-03-21] MEDS: ACETAMINOPHEN 500 MG TAB PO (15:26)
[2017-03-21] MEDS: ATENOLOL 50 MG TAB PO (20:00)
[2017-03-22 07:12] LABS: MEAN CORPUSCULAR HEMOGLOBIN 32.6 pg (27.0-33.0); MEAN CORPUSCULAR HGB CONC 31.6 g/dl (32.0-36.5); MEAN CORPUSCULAR VOLUME 102.9 fl (80.0-96.0); PLATELET COUNT, AUTOMATED 404 10^3/uL (150-450); RED CELL DISTRIBUTION WIDTH 12.2 % (11.5-14.5); WHITE BLOOD COUNT 12.5 10^3/uL (4.0-10.0)
[2017-03-22 07:29] LABS: ALBUMIN 2.9 GM/DL (3.2-5.2); ALBUMIN/GLOBULIN RATIO 0.71 (1.00-1.93); ALKALINE PHOSPHATASE 134 U/L (45-117); ALT/SGPT 12 U/L (12-78); ANION GAP 8 MEQ/L (8-16); AST/SGOT 14 U/L (7-37); BILIRUBIN,TOTAL 0.3 MG/DL (0.2-1.0); BLOOD UREA NITROGEN 8 MG/DL (7-18); CALCIUM LEVEL 8.4 MG/DL (8.8-10.2); CARBON DIOXIDE LEVEL 24 MEQ/L (21-32); CHLORIDE LEVEL 112 MEQ/L (98-107); CREATININE FOR GFR 0.44 MG/DL (0.55-1.02); GLOMERULAR FILTRATION RATE > 60.0 (>39); GLUCOSE, FASTING 112 MG/DL (83-110); MAGNESIUM LEVEL 1.9 MG/DL (1.8-2.4); POTASSIUM SERUM 3.8 MEQ/L (3.5-5.1); SODIUM LEVEL 144 MEQ/L (136-145)
[2017-03-22] MEDS: RAMIPRIL 5 MG CAP PO (08:27)
[2017-03-22] MEDS: PANTOPRAZOLE 40MG INJ (PROTONIX) (C9113) IV (08:27)
[2017-03-22] MEDS: prednisoLONE ACET 1% OPHTH SUSP 5ML OS (08:28)
== END 2017-03-22 10:17 | disposition home or self-care (01) | DRG 440 ==
LOC: M PCU 03-20 01:18 → M MS4PR 03-21 21:38 → M ED 18:11 → M ED INP 23:16
DX: K85.90 Acute pancreatitis without necrosis or infection, unspecified (principal); N30.90 Cystitis, unspecified without hematuria; K21.9 Gastro-esophageal reflux disease without esophagitis; I10 Essential (primary) hypertension; E78.5 Hyperlipidemia, unspecified; E83.42 Hypomagnesemia; E87.6 Hypokalemia; K59.00 Constipation, unspecified; D64.9 Anemia, unspecified; D49.4 Neoplasm of unspecified behavior of bladder; F17.210 Nicotine dependence, cigarettes, uncomplicated; Z79.899 Other long term (current) drug therapy; Z79.52 Long term (current) use of systemic steroids; Z88.8 Allergy status to other drugs, medicaments and biological substances

== ENCOUNTER → 2017-03-27 | Outpatient (REF) | payer MEDICARE, OTHER ==
[2017-03-27 12:55] LABS: BASO # 0.1 10^3/uL (0.0-0.2); BASO % 0.5 % (0.0-1.0); EOS # 0.1 10^3/uL (0.0-0.50); EOS % 0.5 % (0.0-3.0); HEMATOCRIT 35.5 % (36.0-47.0); HEMOGLOBIN 11.2 g/dl (12.0-16.0); IMMATURE GRANULOCYTE # 0.1 10^3/uL (0-0); IMMATURE GRANULOCYTE % 0.6 % (0-0); LYMPH # 1.1 10^3/uL (1.5-4.5); LYMPH % 8.5 % (24.0-44.0); MEAN CORPUSCULAR HEMOGLOBIN 32.2 pg (27.0-33.0); MEAN CORPUSCULAR HGB CONC 31.5 g/dl (32.0-36.5); MONO # 0.8 10^3/uL (0.0-0.8); MONO % 6.1 % (0.0-5.0); NEUTROPHILS # 10.9 10^3/uL (1.8-7.7); NEUTROPHILS % 83.8 % (36.0-66.0); PLATELET COUNT, AUTOMATED 403 10^3/uL (150-450); RED BLOOD COUNT 3.48 10^6/uL (4.00-5.40); RED CELL DISTRIBUTION WIDTH 12.3 % (11.5-14.5)
[2017-03-27 13:11] LABS: ALBUMIN 3.4 GM/DL (3.2-5.2); ALBUMIN/GLOBULIN RATIO 0.97 (1.00-1.93); ALKALINE PHOSPHATASE 127 U/L (45-117); ALT/SGPT 13 U/L (12-78); ANION GAP 8 MEQ/L (8-16); AST/SGOT 10 U/L (7-37); BILIRUBIN,TOTAL 0.2 MG/DL (0.2-1.0); BLOOD UREA NITROGEN 9 MG/DL (7-18); CALCIUM LEVEL 8.9 MG/DL (8.8-10.2); CARBON DIOXIDE LEVEL 30 MEQ/L (21-32); CHLORIDE LEVEL 104 MEQ/L (98-107); CREATININE FOR GFR 0.48 MG/DL (0.55-1.02); GLOMERULAR FILTRATION RATE > 60.0 (>39); GLUCOSE, FASTING 116 MG/DL (83-110); POTASSIUM SERUM 3.8 MEQ/L (3.5-5.1); SODIUM LEVEL 142 MEQ/L (136-145); TOTAL PROTEIN 6.9 GM/DL (6.4-8.2)
== END ==
LOC: M SFHCADAM 09:20
DX: K21.9 Gastro-esophageal reflux disease without esophagitis (principal); D75.89 Other specified diseases of blood and blood-forming organs
CPT/HCPCS: 80053

== ENCOUNTER → 2017-04-12 | Outpatient (CLI) | payer MEDICARE, OTHER | LOC: M EKG 12:05 | DX: N32.89 Other specified disorders of bladder (principal); Z01.818 Encounter for other preprocedural examination (principal); R31.0 Gross hematuria | CPT/HCPCS: 71046 ==

== ENCOUNTER 2017-04-16 09:50 | Day surgery (SDC) | payer MEDICARE, OTHER ==
[2017-04-16] MEDS: LR 1,000 ML IV ×2 (10:00→12:45)
[2017-04-16] MEDS ORDERED: fentaNYL 100 MCG/2 ML INJECTION (J3010) As Ordered ×3 (10:48→12:07)
[2017-04-16] MEDS ORDERED: LIDOCAINE 2% INJ 100 MG/5 ML SDV (FOR ANES.) As Ordered (11:06)
[2017-04-16] MEDS ORDERED: ePHEDrine INJ 50 MG/ML VIAL As Ordered (11:06)
[2017-04-16] MEDS ORDERED: PROPOFOL 200 MG/20 ML VIAL As Ordered ×2 (11:06→11:33)
[2017-04-16] MEDS ORDERED: ROCURONIUM BROMIDE 50 MG/5 ML VIAL As Ordered (11:06)
[2017-04-16] MEDS ORDERED: METHYLENE BLUE 0.5% (5MG/ML) 10 ML AMP (PROVAYBLUE)(Q9968 PER 1MG) As Ordered (11:11)
[2017-04-16] MEDS: mitoMYcin 40MG VIAL (J9280 PER 5MG) INTRAVESIC (11:18)
[2017-04-16] MEDS ORDERED: ONDANSETRON 4MG/2ML VIAL (J2405) As Ordered (12:03)
[2017-04-16] MEDS ORDERED: GLYCOPYRROLATE INJ 0.2 MG/ML 2 ML VIAL As Ordered (12:04)
[2017-04-16] MEDS: fentaNYL 100 MCG/2 ML INJECTION (J3010) IV ×9 (12:35→13:20)
[2017-04-16] MEDS: ONDANSETRON 4MG/2ML VIAL (J2405) IV (13:45)
[2017-04-16] MEDS ORDERED: NORCO, ANEXSIA 5/325MG TABLET (HYDROcodone/ACETAMINOPHEN) As Ordered (15:24)
[2017-04-16] MEDS: NORCO, ANEXSIA 5/325MG TABLET (HYDROcodone/ACETAMINOPHEN) PO (15:31)
[2017-04-16] MEDS: NITROFURANTOIN (MACROBID) 100 MG CAP PO (20:46)
[2017-04-16] MEDS: PERCOCET 5MG/325MG TAB PO (20:46)
[2017-04-16] MEDS: SENOKOT S TAB PO (20:47)
[2017-04-17] MEDS: PERCOCET 5MG/325MG TAB PO ×3 (01:12→09:34)
[2017-04-17] MEDS: NITROFURANTOIN (MACROBID) 100 MG CAP PO (09:33)
[2017-04-17] MEDS: oxyBUTYnin *DITROPAN XL* 5 MG TABCR PO (09:33)
[2017-04-17] MEDS: SENOKOT S TAB PO (09:34)
[2017-04-17] MEDS: PHENAZOPYRIDINE 100 MG TAB PO ×2 (10:00→12:23)
[2017-04-17] MEDS: ONDANSETRON 4 MG TAB (S0181) PO (11:48)
== END 2017-04-17 12:40 | disposition home or self-care (01) ==
LOC: M SDC 09:50 → M MSPAV 17:00
DX: C67.9 Malignant neoplasm of bladder, unspecified (principal); R31.0 Gross hematuria; I10 Essential (primary) hypertension; E78.00 Pure hypercholesterolemia, unspecified; K57.32 Diverticulitis of large intestine without perforation or abscess without bleeding; K59.00 Constipation, unspecified; K21.9 Gastro-esophageal reflux disease without esophagitis; N30.11 Interstitial cystitis (chronic) with hematuria; M12.9 Arthropathy, unspecified; M54.9 Dorsalgia, unspecified; M81.0 Age-related osteoporosis without current pathological fracture; F41.9 Anxiety disorder, unspecified; Z88.1 Allergy status to other antibiotic agents; Z88.8 Allergy status to other drugs, medicaments and biological substances; Z79.899 Other long term (current) drug therapy; Z78.0 Asymptomatic menopausal state; Z72.0 Tobacco use
CPT/HCPCS: 52235

== ENCOUNTER → 2017-04-19 | Outpatient (CLI) | payer MEDICARE, OTHER ==
[2017-04-19 14:49] LABS: HEMATOCRIT 34.5 % (36.0-47.0); HEMOGLOBIN 10.8 g/dl (12.0-16.0); MEAN CORPUSCULAR HEMOGLOBIN 31.9 pg (27.0-33.0); MEAN CORPUSCULAR HGB CONC 31.3 g/dl (32.0-36.5); MEAN CORPUSCULAR VOLUME 101.8 fl (80.0-96.0); PLATELET COUNT, AUTOMATED 422 10^3/uL (150-450); RED BLOOD COUNT 3.39 10^6/uL (4.00-5.40); RED CELL DISTRIBUTION WIDTH 12.7 % (11.5-14.5)
[2017-04-19 15:02] LABS: PROTHROMBIN TIME 13.3 SECONDS (12.4-14.5)
[2017-04-19 15:03] LABS: PARTIAL THROMBOPLASTIN TIME 37.2 SECONDS (26.8-37.9)
[2017-04-19 15:48] LABS: ALBUMIN 3.4 GM/DL (3.2-5.2); ALBUMIN/GLOBULIN RATIO 0.85 (1.00-1.93); ALKALINE PHOSPHATASE 170 U/L (45-117); ALT/SGPT 15 U/L (12-78); ANION GAP 6 MEQ/L (8-16); AST/SGOT 11 U/L (7-37); BILIRUBIN,TOTAL 0.3 MG/DL (0.2-1.0); BLOOD UREA NITROGEN 13 MG/DL (7-18); CALCIUM LEVEL 9.5 MG/DL (8.8-10.2); CARBON DIOXIDE LEVEL 25 MEQ/L (21-32); CHLORIDE LEVEL 107 MEQ/L (98-107); CREATININE FOR GFR 0.67 MG/DL (0.55-1.02); GLOMERULAR FILTRATION RATE > 60.0 (>39); GLUCOSE, FASTING 126 MG/DL (70-100); POTASSIUM SERUM 4.7 MEQ/L (3.5-5.1); SODIUM LEVEL 138 MEQ/L (136-145); TOTAL PROTEIN 7.4 GM/DL (6.4-8.2)
== END ==
LOC: M SMT 11:21
DX: Z01.812 Encounter for preprocedural laboratory examination (principal); C67.9 Malignant neoplasm of bladder, unspecified; F17.210 Nicotine dependence, cigarettes, uncomplicated
CPT/HCPCS: 80053

== ENCOUNTER → 2017-04-26 | Outpatient (CLI) | payer MEDICARE, OTHER ==
[~2017-04-26] MED LIST changes: -ACET-683 PO; -AMIL25TA PO; -AMIL5TA PO; -AMIT25TA PO; -ATEN50TA2 PO; -BROM0.07 OS; -CHLO1CAP14 PO; -CRES20TA PO; -DETR10TA PO; -GABA-282 PO; -GABA-283 PO; -GLYCADSU PR; +ISOVUE-370 76% 100ML VIAL (Q9967) As Ordered; -MACR100C43 PO; -NEXI40CA PO; -PREDOPD OS; -RAMI10CA PO; -RAMI5CA PO; -TOLT2TAB12 PO; -TYLE1TAB5 PO; -TYLE500T78 PO; -VITA-110 PO; -VITA100066 PO
[2017-04-26 16:14] LABS: APPEARANCE, URINE CLEAR (CLEAR); BACTERIA, URINE AUTO NEGATIVE (NEGATIVE); BILIRUBIN, URINE AUTO NEGATIVE (NEGATIVE); BLOOD, URINE BLOOD 2+ (NEGATIVE); COLOR, URINE YELLOW (YELLOW); GLUCOSE, URINE (UA) AUTO NEGATIVE (NEGATIVE); KETONE, URINE AUTO NEGATIVE (NEGATIVE); LEUKOCYTE ESTERASE, URINE AUTO 3+ (NEGATIVE); NITRITE, URINE AUTO NEGATIVE (NEGATIVE); PROTEIN, URINE AUTO 1+ mg/dL (NEGATIVE); RBC, URINE AUTO 17 /HPF (0-3); SPECIFIC GRAVITY URINE AUTO 1.011 (1.002-1.035); SQUAMOUS EPITHELIAL CELL UR AU 0 /HPF (0-6); UROBILINOGEN, URINE AUTO 0.2 mg/dL (0.0-2.0); WBC, URINE AUTO 19 /HPF (0-3)
== END ==
LOC: M LAB 09:28
DX: Z01.812 Encounter for preprocedural laboratory examination (principal); C67.9 Malignant neoplasm of bladder, unspecified; Z79.899 Other long term (current) drug therapy
CPT/HCPCS: Q9967

== ENCOUNTER → 2017-05-08 | Outpatient (REF) | payer MEDICARE, OTHER ==
[2017-05-08 19:49] LABS: HEMATOCRIT 32.4 % (36.0-47.0); HEMOGLOBIN 10.2 g/dl (12.0-16.0); MEAN CORPUSCULAR HEMOGLOBIN 32.2 pg (27.0-33.0); MEAN CORPUSCULAR HGB CONC 31.5 g/dl (32.0-36.5); MEAN CORPUSCULAR VOLUME 102.2 fl (80.0-96.0); PLATELET COUNT, AUTOMATED 351 10^3/uL (150-450); RED BLOOD COUNT 3.17 10^6/uL (4.00-5.40); RED CELL DISTRIBUTION WIDTH 13.7 % (11.5-14.5)
[2017-05-08 20:20] LABS: ALBUMIN 3.6 GM/DL (3.2-5.2); ALBUMIN/GLOBULIN RATIO 1.03 (1.00-1.93); ALKALINE PHOSPHATASE 146 U/L (45-117); ALT/SGPT 12 U/L (12-78); ANION GAP 9 MEQ/L (8-16); AST/SGOT 13 U/L (7-37); BILIRUBIN,TOTAL 0.2 MG/DL (0.2-1.0); BLOOD UREA NITROGEN 21 MG/DL (7-18); CARBON DIOXIDE LEVEL 26 MEQ/L (21-32); CHLORIDE LEVEL 105 MEQ/L (98-107); CREATININE FOR GFR 0.76 MG/DL (0.55-1.30); GLOMERULAR FILTRATION RATE > 60.0 (>39); GLUCOSE, FASTING 180 MG/DL (70-100); POTASSIUM SERUM 4.6 MEQ/L (3.5-5.1); SODIUM LEVEL 140 MEQ/L (136-145); TOTAL PROTEIN 7.1 GM/DL (6.4-8.2)
== END ==
LOC: M SFHCADAM 14:10
DX: Z01.818 Encounter for other preprocedural examination (principal); C67.9 Malignant neoplasm of bladder, unspecified
CPT/HCPCS: 80053

== ENCOUNTER → 2017-05-11 | Outpatient (REF) | payer MEDICARE, OTHER ==
[2017-05-11 14:03] LABS: AMORPHOUS SEDIMENT SMALL (NEGATIVE); APPEARANCE, URINE HAZY (CLEAR); BACTERIA, URINE AUTO 1+ (NEGATIVE); BILIRUBIN, URINE AUTO NEGATIVE (NEGATIVE); BLOOD, URINE BLOOD NEGATIVE (NEGATIVE); COLOR, URINE YELLOW (YELLOW); GLUCOSE, URINE (UA) AUTO NEGATIVE (NEGATIVE); KETONE, URINE AUTO NEGATIVE (NEGATIVE); LEUKOCYTE ESTERASE, URINE AUTO 3+ (NEGATIVE); MUCUS, URINE SMALL (NEGATIVE); NITRITE, URINE AUTO NEGATIVE (NEGATIVE); PROTEIN, URINE AUTO 1+ mg/dL (NEGATIVE); RBC, URINE AUTO 16 /HPF (0-3); SPECIFIC GRAVITY URINE AUTO 1.014 (1.002-1.035); SQUAMOUS EPITHELIAL CELL UR AU 0 /HPF (0-6); UROBILINOGEN, URINE AUTO 0.2 mg/dL (0.0-2.0); WBC, URINE AUTO 73 /HPF (0-3)
== END ==
LOC: M LABDRWAD 12:22
DX: N30.00 Acute cystitis without hematuria (principal)
CPT/HCPCS: 81001

== ENCOUNTER 2017-05-15 05:42 | Inpatient (IN) | payer MEDICARE, OTHER ==
[2017-05-15] MEDS ORDERED: LIDOCAINE 1% MDV 20ML VIAL SQ (06:00)
[2017-05-15] MEDS: LR 1,000 ML IV ×2 (06:00→16:45)
[2017-05-15] MEDS ORDERED: fentaNYL 250 MCG/5 ML INJECTION (J3010) As Ordered (07:15)
[2017-05-15] MEDS ORDERED: MIDAZOLAM INJ 2 MG/2 ML VIAL (J2250) As Ordered (07:15)
[2017-05-15] MEDS ORDERED: ROCURONIUM BROMIDE 50 MG/5 ML VIAL As Ordered ×3 (07:15→11:12)
[2017-05-15] MEDS ORDERED: PROPOFOL 200 MG/20 ML VIAL As Ordered (07:15)
[2017-05-15] MEDS ORDERED: LIDOCAINE 2% INJ 100 MG/5 ML SDV (FOR ANES.) As Ordered (07:15)
[2017-05-15] MEDS ORDERED: ePHEDrine INJ 50 MG/ML VIAL As Ordered (07:59)
[2017-05-15] MEDS ORDERED: HYDROmorphone HCL 2 MG/ML 1ML VIAL (J1170) As Ordered (09:34)
[2017-05-15] MEDS ORDERED: SEVOFLURANE INHAL SOLN 250 ML BTL As Ordered (11:32)
[2017-05-15] MEDS ORDERED: ONDANSETRON 4MG/2ML VIAL (J2405) As Ordered ×2 (12:35)
[2017-05-15] MEDS ORDERED: NEOSTIGMINE 10 MG/10 ML VIAL (J2710) As Ordered (12:36)
[2017-05-15] MEDS ORDERED: GLYCOPYRROLATE INJ 0.2 MG/ML 2 ML VIAL As Ordered ×2 (12:36)
[2017-05-15] MEDS ORDERED: METOCLOPRAMIDE INJ 10MG/2ML VIAL (J2765) As Ordered (12:41)
[2017-05-15] MEDS ORDERED: fentaNYL 100 MCG/2 ML INJECTION (J3010) As Ordered ×2 (15:23→16:26)
[2017-05-15] MEDS: ESTROGENS VAGINAL CREAM 30GM As Ordered (15:49)
[2017-05-15] MEDS ORDERED: KETOROLAC 30 MG/ML VIAL (J1885) As Ordered (16:26)
[2017-05-15] MEDS: KETOROLAC 30 MG/ML VIAL (J1885) IV (16:30)
[2017-05-15] MEDS: fentaNYL 100 MCG/2 ML INJECTION (J3010) IV ×3 (16:35→17:12)
[2017-05-15 16:44] LABS: HEMATOCRIT 29.2 % (36.0-47.0); HEMOGLOBIN 9.3 g/dl (12.0-16.0); MEAN CORPUSCULAR HEMOGLOBIN 32.5 pg (27.0-33.0); MEAN CORPUSCULAR HGB CONC 31.8 g/dl (32.0-36.5); MEAN CORPUSCULAR VOLUME 102.1 fl (80.0-96.0); PLATELET COUNT, AUTOMATED 316 10^3/uL (150-450); RED BLOOD COUNT 2.86 10^6/uL (4.00-5.40); RED CELL DISTRIBUTION WIDTH 13.7 % (11.5-14.5); WHITE BLOOD COUNT 16.6 10^3/uL (4.0-10.0)
[2017-05-15] MEDS ORDERED: HYDROmorphone HCL 1 MG/ML SYRINGE (J1170) IV (16:45)
[2017-05-15] MEDS ORDERED: ONDANSETRON 4MG/2ML VIAL (J2405) IV (16:45)
[2017-05-15] MEDS ORDERED: MORPHINE 4 MG/ML 1ML VIAL (J2270) IV (16:45)
[2017-05-15] MEDS ORDERED: PERCOCET 5MG/325MG TAB PO (16:45)
[2017-05-15 17:13] LABS: ANION GAP 6 MEQ/L (8-16); BLOOD UREA NITROGEN 19 MG/DL (7-18); CALCIUM LEVEL 8.3 MG/DL (8.8-10.2); CARBON DIOXIDE LEVEL 26 MEQ/L (21-32); CHLORIDE LEVEL 108 MEQ/L (98-107); CREATININE FOR GFR 1.25 MG/DL (0.55-1.30); GLUCOSE, FASTING 122 MG/DL (70-100); SODIUM LEVEL 140 MEQ/L (136-145)
[2017-05-15 17:15] LABS: POTASSIUM SERUM 5.6 MEQ/L (3.5-5.1)
[2017-05-15] MEDS: KCL 20MEQ IN D5/0.45NS 1000ML 1,000 ML IV (18:59)
[2017-05-15] MEDS: LevoFLOXacin IV 500 MG in APPROPRIATE DILUENT 1 EA IV (18:59)
[2017-05-15] MEDS: ROSUVASTATIN 10 MG TAB (CRESTOR) PO (20:22)
[2017-05-15] MEDS: GABAPENTIN 300 MG CAP PO (20:22)
[2017-05-15] MEDS: RAMIPRIL 5 MG CAP PO (20:48)
[2017-05-15] MEDS: ACETAMINOPHEN 650MG ER TAB (TYLENOL ARTHRITIS) PO (20:54)
[2017-05-16] MEDS: KETOROLAC 30 MG/ML VIAL (J1885) IV ×3 (00:42→17:09)
[2017-05-16] MEDS: KCL 20MEQ IN D5/0.45NS 1000ML 1,000 ML IV ×2 (00:43→08:45)
[2017-05-16 05:30] LABS: HEMATOCRIT 28.3 % (36.0-47.0); HEMOGLOBIN 8.9 g/dl (12.0-16.0); MEAN CORPUSCULAR HEMOGLOBIN 32.1 pg (27.0-33.0); MEAN CORPUSCULAR HGB CONC 31.4 g/dl (32.0-36.5); MEAN CORPUSCULAR VOLUME 102.2 fl (80.0-96.0); PLATELET COUNT, AUTOMATED 278 10^3/uL (150-450); RED BLOOD COUNT 2.77 10^6/uL (4.00-5.40); RED CELL DISTRIBUTION WIDTH 14.2 % (11.5-14.5); WHITE BLOOD COUNT 16.6 10^3/uL (4.0-10.0)
[2017-05-16] MEDS: ACETAMINOPHEN 650MG ER TAB (TYLENOL ARTHRITIS) PO ×3 (05:42→20:29)
[2017-05-16 06:02] LABS: ANION GAP 7 MEQ/L (8-16); BLOOD UREA NITROGEN 21 MG/DL (7-18); CALCIUM LEVEL 7.6 MG/DL (8.8-10.2); CARBON DIOXIDE LEVEL 24 MEQ/L (21-32); CHLORIDE LEVEL 108 MEQ/L (98-107); CREATININE FOR GFR 1.21 MG/DL (0.55-1.30); GLOMERULAR FILTRATION RATE 45.7 (>39); GLUCOSE, FASTING 146 MG/DL (70-100); SODIUM LEVEL 139 MEQ/L (136-145)
[2017-05-16 06:06] LABS: POTASSIUM SERUM 5.5 MEQ/L (3.5-5.1)
[2017-05-16] MEDS: aMILoride 5 MG TAB PO (09:00)
[2017-05-16] MEDS: RAMIPRIL 5 MG CAP PO ×2 (09:00→20:29)
[2017-05-16] MEDS: ATENOLOL 50 MG TAB PO (09:00)
[2017-05-16] MEDS: PANTOPRAZOLE 40MG INJ (PROTONIX) (C9113) IV (09:01)
[2017-05-16] MEDS: GABAPENTIN 300 MG CAP PO ×2 (09:04→20:28)
[2017-05-16] MEDS: MORPHINE 4 MG/ML 1ML VIAL (J2270) IV ×3 (09:46→21:19)
[2017-05-16] MEDS: NS 1,000 ML IV ×2 (09:46→20:30)
[2017-05-16] MEDS: LevoFLOXacin IV 500 MG in APPROPRIATE DILUENT 1 EA IV (17:12)
[2017-05-16] MEDS: ROSUVASTATIN 10 MG TAB (CRESTOR) PO (20:29)
[2017-05-17] MEDS: KETOROLAC 30 MG/ML VIAL (J1885) IV ×3 (00:25→17:45)
[2017-05-17] MEDS: ONDANSETRON 4MG/2ML VIAL (J2405) IV (00:26)
[2017-05-17] MEDS: ACETAMINOPHEN 650MG ER TAB (TYLENOL ARTHRITIS) PO ×3 (05:11→21:49)
[2017-05-17 05:54] LABS: HEMATOCRIT 25.1 % (36.0-47.0); HEMOGLOBIN 7.7 g/dl (12.0-16.0); MEAN CORPUSCULAR HEMOGLOBIN 31.4 pg (27.0-33.0); MEAN CORPUSCULAR HGB CONC 30.7 g/dl (32.0-36.5); MEAN CORPUSCULAR VOLUME 102.4 fl (80.0-96.0); PLATELET COUNT, AUTOMATED 306 10^3/uL (150-450); RED BLOOD COUNT 2.45 10^6/uL (4.00-5.40); RED CELL DISTRIBUTION WIDTH 14.3 % (11.5-14.5)
[2017-05-17 06:10] LABS: ANION GAP 8 MEQ/L (8-16); BLOOD UREA NITROGEN 18 MG/DL (7-18); CALCIUM LEVEL 7.3 MG/DL (8.8-10.2); CARBON DIOXIDE LEVEL 22 MEQ/L (21-32); CHLORIDE LEVEL 108 MEQ/L (98-107); CREATININE FOR GFR 0.92 MG/DL (0.55-1.30); GLOMERULAR FILTRATION RATE > 60.0 (>39); GLUCOSE, FASTING 116 MG/DL (70-100); MAGNESIUM LEVEL 1.7 MG/DL (1.8-2.4); PHOSPHORUS LEVEL 3.2 MG/DL (2.5-4.9); POTASSIUM SERUM 4.9 MEQ/L (3.5-5.1); SODIUM LEVEL 138 MEQ/L (136-145)
[2017-05-17] MEDS: NS 1,000 ML IV ×2 (06:57→23:35)
[2017-05-17] MEDS: PANTOPRAZOLE 40MG INJ (PROTONIX) (C9113) IV (09:18)
[2017-05-17] MEDS: aMILoride 5 MG TAB PO (09:19)
[2017-05-17] MEDS: GABAPENTIN 300 MG CAP PO ×2 (09:19→21:49)
[2017-05-17] MEDS: ATENOLOL 50 MG TAB PO (09:20)
[2017-05-17] MEDS: RAMIPRIL 5 MG CAP PO ×2 (09:20→21:49)
[2017-05-17] MEDS: MAGNESIUM SULFATE 1 GM/100 ML D5W BAG (10MG/ML) (J3475) IV ×2 (09:55→11:12)
[2017-05-17] MEDS: LevoFLOXacin IV 500 MG in APPROPRIATE DILUENT 1 EA IV (17:44)
[2017-05-17] MEDS: ROSUVASTATIN 10 MG TAB (CRESTOR) PO (21:49)
[2017-05-18] MEDS: KETOROLAC 30 MG/ML VIAL (J1885) IV ×2 (00:54→12:11)
[2017-05-18] MEDS: ONDANSETRON 4MG/2ML VIAL (J2405) IV (04:54)
[2017-05-18] MEDS: ACETAMINOPHEN 650MG ER TAB (TYLENOL ARTHRITIS) PO (06:00)
[2017-05-18 07:33] LABS: HEMATOCRIT 27.9 % (36.0-47.0); HEMOGLOBIN 8.6 g/dl (12.0-16.0); MEAN CORPUSCULAR HGB CONC 30.8 g/dl (32.0-36.5); MEAN CORPUSCULAR VOLUME 103.7 fl (80.0-96.0); PLATELET COUNT, AUTOMATED 330 10^3/uL (150-450); RED BLOOD COUNT 2.69 10^6/uL (4.00-5.40); RED CELL DISTRIBUTION WIDTH 14.2 % (11.5-14.5); WHITE BLOOD COUNT 17.1 10^3/uL (4.0-10.0)
[2017-05-18 07:51] LABS: ANION GAP 10 MEQ/L (8-16); BLOOD UREA NITROGEN 17 MG/DL (7-18); CALCIUM LEVEL 7.9 MG/DL (8.8-10.2); CARBON DIOXIDE LEVEL 19 MEQ/L (21-32); CHLORIDE LEVEL 112 MEQ/L (98-107); CREATININE FOR GFR 0.78 MG/DL (0.55-1.30); GLOMERULAR FILTRATION RATE > 60.0 (>39); GLUCOSE, FASTING 99 MG/DL (70-100); SODIUM LEVEL 141 MEQ/L (136-145)
[2017-05-18] MEDS: RAMIPRIL 5 MG CAP PO ×2 (09:00→21:00)
[2017-05-18] MEDS: METOCLOPRAMIDE INJ 10MG/2ML VIAL (J2765) IV ×3 (10:07→21:28)
[2017-05-18 10:34] LABS: CREATININE BF 0.7 MG/DL (NOT ESTABLISHED)
[2017-05-18 11:13] LABS: ALBUMIN 2.2 GM/DL (3.2-5.2); ALBUMIN/GLOBULIN RATIO 0.58 (1.00-1.93); ALKALINE PHOSPHATASE 98 U/L (45-117); ALT/SGPT 10 U/L (12-78); AST/SGOT 30 U/L (7-37); BILIRUBIN,DIRECT 0.1 MG/DL (0.0-0.2); BILIRUBIN,TOTAL 0.3 MG/DL (0.2-1.0); MAGNESIUM LEVEL 2.5 MG/DL (1.8-2.4); PHOSPHORUS LEVEL 3.1 MG/DL (2.5-4.9)
[2017-05-18] MEDS: NS 1,000 ML IV ×2 (11:30→12:18)
[2017-05-18] MEDS: PANTOPRAZOLE 40MG INJ (PROTONIX) (C9113) IV (12:10)
[2017-05-18] MEDS: GABAPENTIN 300 MG CAP PO ×2 (12:11→21:22)
[2017-05-18] MEDS: ATENOLOL 50 MG TAB PO (14:28)
[2017-05-18] MEDS: aMILoride 5 MG TAB PO (14:30)
[2017-05-18] MEDS: LevoFLOXacin IV 500 MG in APPROPRIATE DILUENT 1 EA IV (18:12)
[2017-05-18] MEDS: ROSUVASTATIN 10 MG TAB (CRESTOR) PO (21:27)
[2017-05-18] MEDS ORDERED: ACETAMINOPHEN TAB 650MG DOSE (2X325MG) PO (23:00)
[2017-05-19] MEDS: METOCLOPRAMIDE INJ 10MG/2ML VIAL (J2765) IV ×4 (05:20→22:50)
[2017-05-19] MEDS: NS 1,000 ML IV (05:25)
[2017-05-19 05:48] LABS: HEMATOCRIT 27.9 % (36.0-47.0); HEMOGLOBIN 8.7 g/dl (12.0-16.0); MEAN CORPUSCULAR HEMOGLOBIN 32.5 pg (27.0-33.0); MEAN CORPUSCULAR HGB CONC 31.2 g/dl (32.0-36.5); MEAN CORPUSCULAR VOLUME 104.1 fl (80.0-96.0); PLATELET COUNT, AUTOMATED 360 10^3/uL (150-450); RED BLOOD COUNT 2.68 10^6/uL (4.00-5.40); RED CELL DISTRIBUTION WIDTH 13.8 % (11.5-14.5); WHITE BLOOD COUNT 15.9 10^3/uL (4.0-10.0)
[2017-05-19] MEDS ORDERED: ACETAMINOPHEN 650MG ER TAB (TYLENOL ARTHRITIS) PO (06:00)
[2017-05-19 06:08] LABS: ANION GAP 15 MEQ/L (8-16); BLOOD UREA NITROGEN 16 MG/DL (7-18); CARBON DIOXIDE LEVEL 15 MEQ/L (21-32); CHLORIDE LEVEL 111 MEQ/L (98-107); CREATININE FOR GFR 0.58 MG/DL (0.55-1.30); GLOMERULAR FILTRATION RATE > 60.0 (>39); GLUCOSE, FASTING 60 MG/DL (70-100); POTASSIUM SERUM 4.8 MEQ/L (3.5-5.1); SODIUM LEVEL 141 MEQ/L (136-145)
[2017-05-19] MEDS: PANTOPRAZOLE 40MG INJ (PROTONIX) (C9113) IV (08:20)
[2017-05-19] MEDS: KETOROLAC 30 MG/ML VIAL (J1885) IV ×2 (08:20→20:52)
[2017-05-19] MEDS: GABAPENTIN 300 MG CAP PO ×2 (08:20→20:51)
[2017-05-19] MEDS: ATENOLOL 50 MG TAB PO (08:20)
[2017-05-19] MEDS: aMILoride 5 MG TAB PO (08:21)
[2017-05-19] MEDS: RAMIPRIL 5 MG CAP PO ×2 (08:23→20:51)
[2017-05-19] MEDS: KCL 20MEQ IN D5/0.45NS 1000ML 1,000 ML IV (12:44)
[2017-05-19] MEDS: LevoFLOXacin 500 MG TABLET PO (18:09)
[2017-05-19] MEDS: ROSUVASTATIN 10 MG TAB (CRESTOR) PO (20:52)
[2017-05-20] MEDS: KCL 20MEQ IN D5/0.45NS 1000ML 1,000 ML IV (02:16)
[2017-05-20] MEDS: METOCLOPRAMIDE INJ 10MG/2ML VIAL (J2765) IV ×3 (04:21→09:28)
[2017-05-20 05:33] LABS: HEMATOCRIT 26.4 % (36.0-47.0); HEMOGLOBIN 8.2 g/dl (12.0-16.0); MEAN CORPUSCULAR HEMOGLOBIN 31.4 pg (27.0-33.0); MEAN CORPUSCULAR HGB CONC 31.1 g/dl (32.0-36.5); MEAN CORPUSCULAR VOLUME 101.1 fl (80.0-96.0); PLATELET COUNT, AUTOMATED 332 10^3/uL (150-450); RED BLOOD COUNT 2.61 10^6/uL (4.00-5.40); RED CELL DISTRIBUTION WIDTH 13.6 % (11.5-14.5); WHITE BLOOD COUNT 11.6 10^3/uL (4.0-10.0)
[2017-05-20 05:36] LABS: ANION GAP 8 MEQ/L (8-16); BLOOD UREA NITROGEN 15 MG/DL (7-18); CALCIUM LEVEL 7.5 MG/DL (8.8-10.2); CARBON DIOXIDE LEVEL 20 MEQ/L (21-32); CHLORIDE LEVEL 114 MEQ/L (98-107); CREATININE FOR GFR 0.55 MG/DL (0.55-1.30); GLOMERULAR FILTRATION RATE > 60.0 (>39); GLUCOSE, FASTING 133 MG/DL (70-100); POTASSIUM SERUM 4.7 MEQ/L (3.5-5.1); SODIUM LEVEL 142 MEQ/L (136-145)
[2017-05-20] MEDS: PANTOPRAZOLE 40MG INJ (PROTONIX) (C9113) IV (09:26)
[2017-05-20] MEDS: GABAPENTIN 300 MG CAP PO (09:27)
[2017-05-20] MEDS: RAMIPRIL 5 MG CAP PO (09:27)
[2017-05-20] MEDS: ATENOLOL 50 MG TAB PO ×2 (09:27→09:31)
[2017-05-20] MEDS: aMILoride 5 MG TAB PO (09:28)
== END 2017-05-20 14:24 | disposition home health service (06) | DRG 655 ==
LOC: M OR 05:42 → M PCU 18:00
PROC: 0TTB4ZZ Resection of Bladder, Percutaneous Endoscopic Approach (ICD-10-PCS; principal; 2017-05-15 07:30)
PROC: 07BC4ZX Excision of Pelvis Lymphatic, Percutaneous Endoscopic Approach, Diagnostic (ICD-10-PCS; 2017-05-15 07:30)
PROC: 0UT94ZZ Resection of Uterus, Percutaneous Endoscopic Approach (ICD-10-PCS; 2017-05-15 07:30)
PROC: 0UT24ZZ Resection of Bilateral Ovaries, Percutaneous Endoscopic Approach (ICD-10-PCS; 2017-05-15 07:30)
PROC: 0UT74ZZ Resection of Bilateral Fallopian Tubes, Percutaneous Endoscopic Approach (ICD-10-PCS; 2017-05-15 07:30)
PROC: 0UTC4ZZ Resection of Cervix, Percutaneous Endoscopic Approach (ICD-10-PCS; 2017-05-15 07:30)
PROC: 0T184ZC Bypass Bilateral Ureters to Ileocutaneous, Percutaneous Endoscopic Approach (ICD-10-PCS; 2017-05-15 07:30)
PROC: 8E0W4CZ Robotic Assisted Procedure of Trunk Region, Percutaneous Endoscopic Approach (ICD-10-PCS; 2017-05-15 07:30)
DX: C67.9 Malignant neoplasm of bladder, unspecified (principal)

== ENCOUNTER → 2017-05-28 | Outpatient (CLI) | payer MEDICARE, OTHER ==
[2017-05-28 13:25] LABS: HEMOGLOBIN 9.9 g/dl (12.0-16.0); MEAN CORPUSCULAR HEMOGLOBIN 30.7 pg (27.0-33.0); MEAN CORPUSCULAR HGB CONC 30.9 g/dl (32.0-36.5); MEAN CORPUSCULAR VOLUME 99.4 fl (80.0-96.0); PLATELET COUNT, AUTOMATED 576 10^3/uL (150-450); RED BLOOD COUNT 3.22 10^6/uL (4.00-5.40); RED CELL DISTRIBUTION WIDTH 13.7 % (11.5-14.5); WHITE BLOOD COUNT 20.7 10^3/uL (4.0-10.0)
[2017-05-28 13:37] LABS: ANION GAP 11 MEQ/L (8-16); BLOOD UREA NITROGEN 25 MG/DL (7-18); CALCIUM LEVEL 8.8 MG/DL (8.8-10.2); CARBON DIOXIDE LEVEL 19 MEQ/L (21-32); CHLORIDE LEVEL 110 MEQ/L (98-107); CREATININE FOR GFR 0.74 MG/DL (0.55-1.30); GLOMERULAR FILTRATION RATE > 60.0 (>39); GLUCOSE, FASTING 98 MG/DL (70-100); POTASSIUM SERUM 5.1 MEQ/L (3.5-5.1); SODIUM LEVEL 140 MEQ/L (136-145)
== END ==
LOC: M SMT 11:52
DX: Z85.51 Personal history of malignant neoplasm of bladder (principal)
CPT/HCPCS: 80048

== ENCOUNTER → 2017-06-01 | Outpatient (REF) | payer MEDICARE, OTHER ==
[2017-06-01 12:50] LABS: HEMATOCRIT 31.2 % (36.0-47.0); HEMOGLOBIN 9.8 g/dl (12.0-16.0); MEAN CORPUSCULAR HEMOGLOBIN 31.1 pg (27.0-33.0); MEAN CORPUSCULAR HGB CONC 31.4 g/dl (32.0-36.5); PLATELET COUNT, AUTOMATED 621 10^3/uL (150-450); RED BLOOD COUNT 3.15 10^6/uL (4.00-5.40); RED CELL DISTRIBUTION WIDTH 14.1 % (11.5-14.5); WHITE BLOOD COUNT 14.5 10^3/uL (4.0-10.0)
[2017-06-01 12:58] LABS: AMORPHOUS SEDIMENT SMALL (NEGATIVE); APPEARANCE, URINE HAZY (CLEAR); BACTERIA, URINE AUTO 1+ (NEGATIVE); BILIRUBIN, URINE AUTO NEGATIVE (NEGATIVE); BLOOD, URINE BLOOD 2+ (NEGATIVE); COLOR, URINE YELLOW (YELLOW); GLUCOSE, URINE (UA) AUTO NEGATIVE (NEGATIVE); KETONE, URINE AUTO NEGATIVE (NEGATIVE); LEUKOCYTE ESTERASE, URINE AUTO 3+ (NEGATIVE); NITRITE, URINE AUTO POSITIVE (NEGATIVE); PROTEIN, URINE AUTO 1+ mg/dL (NEGATIVE); RBC, URINE AUTO 13 /HPF (0-3); SPECIFIC GRAVITY URINE AUTO 1.011 (1.002-1.035); SQUAMOUS EPITHELIAL CELL UR AU 0 /HPF (0-6); UROBILINOGEN, URINE AUTO 0.2 mg/dL (0.0-2.0); WBC, URINE AUTO 38 /HPF (0-3); YEAST LIKE CELL URINE AUTO SMALL
[2017-06-01 13:09] LABS: ANION GAP 8 MEQ/L (8-16); BLOOD UREA NITROGEN 17 MG/DL (7-18); CALCIUM LEVEL 9.1 MG/DL (8.8-10.2); CARBON DIOXIDE LEVEL 23 MEQ/L (21-32); CHLORIDE LEVEL 108 MEQ/L (98-107); CREATININE FOR GFR 0.67 MG/DL (0.55-1.30); GLOMERULAR FILTRATION RATE > 60.0 (>39); GLUCOSE, FASTING 122 MG/DL (70-100); SODIUM LEVEL 139 MEQ/L (136-145)
== END ==
LOC: M SFHCADAM 09:30
DX: N30.00 Acute cystitis without hematuria (principal); Z85.51 Personal history of malignant neoplasm of bladder
CPT/HCPCS: 80048

== ENCOUNTER → 2017-06-20 | Outpatient (REF) | payer MEDICARE, OTHER ==
[2017-06-20 12:30] LABS: HEMOGLOBIN 10.8 g/dl (12.0-16.0); MEAN CORPUSCULAR HEMOGLOBIN 31.3 pg (27.0-33.0); MEAN CORPUSCULAR HGB CONC 30.9 g/dl (32.0-36.5); MEAN CORPUSCULAR VOLUME 101.4 fl (80.0-96.0); PLATELET COUNT, AUTOMATED 388 10^3/uL (150-450); RED BLOOD COUNT 3.45 10^6/uL (4.00-5.40); RED CELL DISTRIBUTION WIDTH 14.6 % (11.5-14.5); WHITE BLOOD COUNT 9.3 10^3/uL (4.0-10.0)
[2017-06-20 13:01] LABS: ANION GAP 8 MEQ/L (8-16); BLOOD UREA NITROGEN 17 MG/DL (7-18); CARBON DIOXIDE LEVEL 26 MEQ/L (21-32); CHLORIDE LEVEL 105 MEQ/L (98-107); CREATININE FOR GFR 0.59 MG/DL (0.55-1.30); GLOMERULAR FILTRATION RATE > 60.0 (>39); GLUCOSE, FASTING 136 MG/DL (70-100); SODIUM LEVEL 139 MEQ/L (136-145)
[2017-06-20 13:02] LABS: POTASSIUM SERUM 5.2 MEQ/L (3.5-5.1)
== END ==
LOC: M SFHCADAM 10:11
DX: Z85.51 Personal history of malignant neoplasm of bladder (principal)
CPT/HCPCS: 80048

== ENCOUNTER → 2017-08-07 | Outpatient (REF) | payer MEDICARE, OTHER ==
[2017-08-07 19:11] LABS: BASO # 0.1 10^3/uL (0.0-0.2); BASO % 0.5 % (0.0-1.0); EOS # 0.1 10^3/uL (0.0-0.50); HEMATOCRIT 35.2 % (36.0-47.0); HEMOGLOBIN 10.8 g/dl (12.0-15.5); IMMATURE GRANULOCYTE % 0.6 % (0-3.0); LYMPH # 1.3 10^3/uL (1.5-4.5); LYMPH % 12.5 % (24.0-44.0); MEAN CORPUSCULAR HEMOGLOBIN 31.3 pg (27.0-33.0); MEAN CORPUSCULAR HGB CONC 30.7 g/dl (32.0-36.5); MONO # 0.6 10^3/uL (0.0-0.8); MONO % 5.5 % (0.0-5.0); NEUTROPHILS # 8.1 10^3/uL (1.8-7.7); NEUTROPHILS % 79.9 % (36.0-66.0); PLATELET COUNT, AUTOMATED 369 10^3/uL (150-450); RED BLOOD COUNT 3.45 10^6/uL (4.00-5.40); RED CELL DISTRIBUTION WIDTH 13.2 % (11.5-14.5); WHITE BLOOD COUNT 10.1 10^3/uL (4.0-10.0)
[2017-08-07 19:37] LABS: TOTAL 25(OH) VITAMIN D 23.2 NG/ML (30.0-100.0); VITAMIN B12 LEVEL 321 PG/ML
[2017-08-07 19:38] LABS: FOLATE 16.7 NG/ML
[2017-08-07 19:49] LABS: ALBUMIN 4.3 GM/DL (3.2-5.2); ALBUMIN/GLOBULIN RATIO 1.26 (1.00-1.93); ALKALINE PHOSPHATASE 135 U/L (45-117); ALT/SGPT 14 U/L (12-78); ANION GAP 9 MEQ/L (8-16); AST/SGOT 13 U/L (7-37); BILIRUBIN,TOTAL 0.2 MG/DL (0.2-1.0); BLOOD UREA NITROGEN 21 MG/DL (7-18); CALCIUM LEVEL 9.1 MG/DL (8.8-10.2); CARBON DIOXIDE LEVEL 22 MEQ/L (21-32); CHLORIDE LEVEL 108 MEQ/L (98-107); CHOLESTEROL LEVEL 169 MG/DL (<200); CHOLESTEROL RISK RATIO 3.072 (<5); CREATININE FOR GFR 0.68 MG/DL (0.55-1.30); FERRITIN 9 NG/ML (8-252); FREE T4 0.74 NG/DL (0.76-1.46); GLOMERULAR FILTRATION RATE > 60.0 (>39); GLUCOSE, FASTING 132 MG/DL (70-100); HDL CHOLESTEROL 55 MG/DL (>40); IRON (FE) 46 UG/DL (50-170); LDL CHOLESTEROL 49.6 MG/DL (<100); NON-HDL-C 114 MG/DL; PERCENT SATURATION 8.6 % (13.2-45.0); POTASSIUM SERUM 4.4 MEQ/L (3.5-5.1); SODIUM LEVEL 139 MEQ/L (136-145); THYROID STIMULATING HORMONE 0.986 uIU/ML (0.358-3.740); TOTAL IRON BINDING CAPACITY 536 UG/DL (250-450); TOTAL PROTEIN 7.7 GM/DL (6.4-8.2); TRIGLYCERIDES LEVEL 322 MG/DL (<150)
== END ==
LOC: M SFHCADAM 11:27
DX: E78.2 Mixed hyperlipidemia (principal); G62.9 Polyneuropathy, unspecified; I10 Essential (primary) hypertension; D63.8 Anemia in other chronic diseases classified elsewhere; Z79.899 Other long term (current) drug therapy
CPT/HCPCS: 82746

== ENCOUNTER → 2017-08-23 | Outpatient (REF) | payer MEDICARE, OTHER | LOC: M SFHCADAM 12:37 | DX: K59.01 Slow transit constipation (principal); Z85.51 Personal history of malignant neoplasm of bladder; D63.8 Anemia in other chronic diseases classified elsewhere; Z79.899 Other long term (current) drug therapy; Z87.19 Personal history of other diseases of the digestive system | CPT/HCPCS: 82270 ==

== ENCOUNTER → 2017-09-20 | Outpatient (REF) | payer MEDICARE, OTHER | LOC: M SMT 19:20 | DX: R82.90 Unspecified abnormal findings in urine (principal) | CPT/HCPCS: 87186 ==

== ENCOUNTER → 2017-10-15 | Outpatient (REF) | payer MEDICARE, OTHER ==
[2017-10-15 20:25] LABS: AMORPHOUS SEDIMENT SMALL (NEGATIVE); APPEARANCE, URINE CLOUDY (CLEAR); BACTERIA, URINE AUTO 1+ (NEGATIVE); BILIRUBIN, URINE AUTO NEGATIVE (NEGATIVE); BLOOD, URINE BLOOD 2+ (NEGATIVE); COLOR, URINE YELLOW (YELLOW); GLUCOSE, URINE (UA) AUTO NEGATIVE (NEGATIVE); KETONE, URINE AUTO NEGATIVE (NEGATIVE); LEUKOCYTE ESTERASE, URINE AUTO NEGATIVE (NEGATIVE); MUCUS, URINE SMALL (NEGATIVE); NITRITE, URINE AUTO NEGATIVE (NEGATIVE); PROTEIN, URINE AUTO 2+ mg/dL (NEGATIVE); RBC, URINE AUTO 34 /HPF (0-3); SPECIFIC GRAVITY URINE AUTO 1.013 (1.002-1.035); SQUAMOUS EPITHELIAL CELL UR AU 0 /HPF (0-6); UROBILINOGEN, URINE AUTO 0.2 mg/dL (0.0-2.0); WBC, URINE AUTO 4 /HPF (0-3)
== END ==
LOC: M SMT 19:31
DX: N30.00 Acute cystitis without hematuria (principal)
CPT/HCPCS: 81001

== ENCOUNTER 2017-10-25 07:05 | Day surgery (SDC) | payer MEDICARE, OTHER ==
[2017-10-25] MEDS: OFLOXACIN 0.3 % (OCUFLOX) OPTH SOL 5ML OD (07:45)
[2017-10-25] MEDS: TROPICAMIDE 1% OPHTH SOLN 2ML OD (07:45)
[2017-10-25] MEDS: PHENYLEPHRINE 2.5% OPHTH SOL 2ML OD (07:45)
[2017-10-25] MEDS: PROPARACAINE 0.5% OPHTH SOL 15ML OD (07:45)
[2017-10-25] MEDS ORDERED: MIDAZOLAM INJ 2 MG/2 ML VIAL (J2250) As Ordered (08:38)
[2017-10-25] MEDS ORDERED: fentaNYL 100 MCG/2 ML INJECTION (J3010) As Ordered (08:38)
[2017-10-25] MEDS: POVIDONE-IODINE 5% OPHTH PREP SOL 30ML As Ordered (09:00)
[2017-10-25] MEDS: LIDOCAINE 0.75%/EPINEPHRINE 0.025% IN BSS 1ML SYR INTRACAMERAL (OR ONLY) As Ordered (09:04)
[2017-10-25] MEDS: BALANCED SALT IRRIGATION SOLUTION 500ML BAG (FOR OR EYE MACHINE) As Ordered (09:05)
[2017-10-25] MEDS: DUOVISC (0.50ML VISCOAT/0.55ML PROVISC) OPHTH KIT As Ordered (09:12)
[2017-10-25] MEDS: CEFUROXIME 1MG/0.1ML INTRACAMERAL INJ As Ordered (09:12)
== END 2017-10-25 10:10 | disposition home or self-care (01) ==
LOC: M SDC 07:05
DX: H25.11 Age-related nuclear cataract, right eye (principal); I10 Essential (primary) hypertension; E78.00 Pure hypercholesterolemia, unspecified; K57.32 Diverticulitis of large intestine without perforation or abscess without bleeding; K59.09 Other constipation; K21.9 Gastro-esophageal reflux disease without esophagitis; D50.9 Iron deficiency anemia, unspecified; M54.9 Dorsalgia, unspecified; M81.0 Age-related osteoporosis without current pathological fracture; F41.9 Anxiety disorder, unspecified; G62.9 Polyneuropathy, unspecified; M12.9 Arthropathy, unspecified; C67.9 Malignant neoplasm of bladder, unspecified; Z88.1 Allergy status to other antibiotic agents; Z88.8 Allergy status to other drugs, medicaments and biological substances; Z79.899 Other long term (current) drug therapy; Z72.0 Tobacco use; Z90.710 Acquired absence of both cervix and uterus
CPT/HCPCS: 66984

== ENCOUNTER → 2017-11-13 | Outpatient (REF) | payer MEDICARE, OTHER ==
[2017-11-13 19:45] LABS: APPEARANCE, URINE HAZY (CLEAR); BACTERIA, URINE AUTO NEGATIVE (NEGATIVE); BILIRUBIN, URINE AUTO NEGATIVE (NEGATIVE); BLOOD, URINE BLOOD 2+ (NEGATIVE); COLOR, URINE YELLOW (YELLOW); GLUCOSE, URINE (UA) AUTO NEGATIVE (NEGATIVE); KETONE, URINE AUTO NEGATIVE (NEGATIVE); LEUKOCYTE ESTERASE, URINE AUTO NEGATIVE (NEGATIVE); NITRITE, URINE AUTO NEGATIVE (NEGATIVE); PROTEIN, URINE AUTO 1+ mg/dL (NEGATIVE); RBC, URINE AUTO 38 /HPF (0-3); SPECIFIC GRAVITY URINE AUTO 1.017 (1.002-1.035); SQUAMOUS EPITHELIAL CELL UR AU 0 /HPF (0-6); UROBILINOGEN, URINE AUTO 0.2 mg/dL (0.0-2.0); WBC, URINE AUTO 11 /HPF (0-3)
== END ==
LOC: M LABSMT 13:19
DX: R82.90 Unspecified abnormal findings in urine (principal)
CPT/HCPCS: 81001

== ENCOUNTER → 2017-11-27 | Outpatient (CLI) | payer MEDICARE, OTHER | LOC: M RAD 12:27 | DX: R91.1 Solitary pulmonary nodule (principal) | CPT/HCPCS: Q9967 ==

== ENCOUNTER → 2017-12-13 | Outpatient (CLI) | payer MEDICARE, OTHER | LOC: M ADAMS 09:47 | DX: M25.552 Pain in left hip (principal) | CPT/HCPCS: 73502 ==

== ENCOUNTER → 2017-12-30 | Outpatient (REF) | payer MEDICARE, OTHER | LOC: M LAB REF 19:04 | DX: N39.0 Urinary tract infection, site not specified (principal) | CPT/HCPCS: 87086 ==

== ENCOUNTER → 2018-02-13 | Outpatient (REF) | payer MEDICARE, OTHER ==
[2018-02-13 12:30] LABS: BASO # 0.1 10^3/uL (0.0-0.2); BASO % 0.6 % (0.0-1.0); EOS # 0.2 10^3/uL (0.0-0.50); EOS % 1.9 % (0.0-3.0); HEMATOCRIT 38.3 % (36.0-47.0); HEMOGLOBIN 12.4 g/dl (12.0-15.5); IMMATURE GRANULOCYTE % 1.1 % (0-3.0); LYMPH # 1.3 10^3/uL (1.5-4.5); LYMPH % 11.5 % (24.0-44.0); MEAN CORPUSCULAR HEMOGLOBIN 34.4 pg (27.0-33.0); MEAN CORPUSCULAR HGB CONC 32.4 g/dl (32.0-36.5); MEAN CORPUSCULAR VOLUME 106.4 fl (80.0-96.0); MONO # 0.8 10^3/uL (0.0-0.8); MONO % 7.4 % (0.0-5.0); NEUTROPHILS # 8.5 10^3/uL (1.8-7.7); NEUTROPHILS % 77.5 % (36.0-66.0); PLATELET COUNT, AUTOMATED 324 10^3/uL (150-450); RED CELL DISTRIBUTION WIDTH 11.5 % (11.5-14.5); WHITE BLOOD COUNT 10.9 10^3/uL (4.0-10.0)
[2018-02-13 12:40] LABS: FERRITIN 46 NG/ML (8-252); IRON (FE) 73 UG/DL (50-170); PERCENT SATURATION 17.8 % (13.2-45.0); TOTAL IRON BINDING CAPACITY 411 UG/DL (250-450)
== END ==
LOC: M SFHCADAM 08:18
DX: N18.9 Chronic kidney disease, unspecified (principal); D63.1 Anemia in chronic kidney disease
CPT/HCPCS: 83550

== ENCOUNTER → 2018-03-07 | Outpatient (REF) | payer MEDICARE, OTHER ==
[2018-03-07 14:38] LABS: AMORPHOUS SEDIMENT SMALL (NEGATIVE); APPEARANCE, URINE CLOUDY (CLEAR); BACTERIA, URINE AUTO 1+ (NEGATIVE); BILIRUBIN, URINE AUTO NEGATIVE (NEGATIVE); BLOOD, URINE BLOOD 2+ (NEGATIVE); COLOR, URINE YELLOW (YELLOW); GLUCOSE, URINE (UA) AUTO NEGATIVE (NEGATIVE); KETONE, URINE AUTO NEGATIVE (NEGATIVE); LEUKOCYTE ESTERASE, URINE AUTO 2+ (NEGATIVE); MUCUS, URINE SMALL (NEGATIVE); NITRITE, URINE AUTO NEGATIVE (NEGATIVE); PROTEIN, URINE AUTO 2+ mg/dL (NEGATIVE); RBC, URINE AUTO 12 /HPF (0-3); RENAL EPITHELIAL CELLS 1 /HPF; SPECIFIC GRAVITY URINE AUTO 1.012 (1.002-1.035); SQUAMOUS EPITHELIAL CELL UR AU 1 /HPF (0-6); UROBILINOGEN, URINE AUTO 0.2 mg/dL (0.0-2.0); WBC, URINE AUTO 77 /HPF (0-3)
== END ==
LOC: M LAB REF 12:53
DX: Z85.51 Personal history of malignant neoplasm of bladder (principal)
CPT/HCPCS: 81001

== ENCOUNTER → 2018-04-12 | Outpatient (REF) | payer MEDICARE, OTHER ==
[~2018-04-12] MED LIST changes: +ACET-683 PO; +AMIL25TA PO; +AMIL5TAB4 PO; +AMIT25TA PO; +AMLO25TA PO; +ATEN50TA2 PO; +BROM0.07 OS; +CHLO1CAP14 PO; +CIPR-249 PO; +COLA100C5 PO; +CRES20TA PO; +DETR1TAB3 PO; +DITR5TAB PO; +FERR325T3 PO; +GABA-843 PO; +GABA-845 PO; +GLYCADSU PR; -ISOVUE-370 76% 100ML VIAL (Q9967) As Ordered; +LEVA1TAB2 PO; +LEVO500T3 PO; +LIBR5CAP PO; +MACR100C43 PO; +NEXI40CA PO; +OXYC1TAB23 PO; +PHEN-500 PO; +PREDOPD OS; +RAMI1CAP24 PO; +RAMI1CAP26 PO; +TOLT2TAB12 PO; +TYLE1TAB5 PO; +TYLE325T5 PO; +TYLE500T78 PO; +TYLE650T35 PO; +VITA-110 PO; +VITA100066 PO; +VITA500C24 PO; +ZOFR4TAB16 PO
== END ==
LOC: M SMT 13:17
PROVIDERS: ATTEND Urology
DX: C67.9 Malignant neoplasm of bladder, unspecified (principal)
CPT/HCPCS: 88108; G0463

== ENCOUNTER → 2018-05-27 | Outpatient (REF) | payer MEDICARE, OTHER ==
[~2018-05-27] MED LIST changes: +PAXI10TA12 PO; +XANA0.5T PO
[2018-05-27 19:41] LABS: HEMATOCRIT 36.6 % (36.0-47.0); HEMOGLOBIN 11.8 g/dl (12.0-15.5); MEAN CORPUSCULAR HEMOGLOBIN 33.6 pg (27.0-33.0); MEAN CORPUSCULAR HGB CONC 32.2 g/dl (32.0-36.5); MEAN CORPUSCULAR VOLUME 104.3 fl (80.0-96.0); PLATELET COUNT, AUTOMATED 317 10^3/uL (150-450); RED BLOOD COUNT 3.51 10^6/uL (4.00-5.40); WHITE BLOOD COUNT 10.2 10^3/uL (4.0-10.0)
[2018-05-27 20:13] LABS: ALBUMIN 3.9 GM/DL (3.2-5.2); ALT/SGPT 14 U/L (12-78); BILIRUBIN,TOTAL 0.3 MG/DL (0.2-1.0); BLOOD UREA NITROGEN 15 MG/DL (7-18); CALCIUM LEVEL 8.4 MG/DL (8.8-10.2); CARBON DIOXIDE LEVEL 22 MEQ/L (21-32); CHLORIDE LEVEL 107 MEQ/L (98-107); CREATININE FOR GFR 0.66 MG/DL (0.55-1.30); GLOMERULAR FILTRATION RATE > 60.0 (>32); GLUCOSE, FASTING 105 MG/DL (70-100); POTASSIUM SERUM 4.5 MEQ/L (3.5-5.1); SODIUM LEVEL 140 MEQ/L (136-145)
== END ==
LOC: M LABDRWAD 19:18
PROVIDERS: ATTEND Internal Medicine Medical Oncology
DX: Z85.51 Personal history of malignant neoplasm of bladder (principal)

== ENCOUNTER → 2018-05-31 | Outpatient (CLI) | payer MEDICARE, OTHER ==
[~2018-05-31] MED LIST changes: +GASTROGRAFIN SOLUTION 30ML (Q9963) As Ordered ONE; +ISOVUE-370 76% 100ML VIAL (Q9967) As Ordered ONE
--- NOTE | 2018-05-31 14:25 | REP ---
CT of the chest with IV contrast: Comparisons are 11/27/2088 04/26/2017. There is a new 2.0 cm cavitary spiculated lesion in the left lower lobe on image 53, not present previously. This could be of either neoplastic or infectious etiology. There is a focal pleural thickening laterally in the right upper lobe on image 26, unchanged from both prior studies, possibly representing a focal pleural plaque. There are no other lung nodules or masses. There are no acute infiltrates. No pleural effusions. There is no hilar lymph node enlargement. However, there is an enlarged aorticopulmonic window mediastinal node measuring up to 9 mm short axis as an interval change. There are no other enlarged mediastinal nodes. There are no enlarged axillary nodes. Thoracic aorta is unremarkable except for occasional calcified atheroma. There is atheromatous calcification in the coronary arteries. Cardiac size is normal. There is no pericardial effusion. There are no lytic, blastic or destructive skeletal changes. There is grade 1 compression of a mid thoracic vertebral body, unchanged from 04/26/2017. Impression: There is a new cavitary lesion in the left lower lobe as described. This could be an infectious or neoplastic. There is an enlarged aorticopulmonic window mediastinal node as an interval change. There is no hilar lymph node enlargement or axillary lymph node enlargement. There is chronic focal thickening of the lateral pleura in the right upper lobe, unchanged from both prior studies. Chronic grade 1 compression of the mid-thoracic vertebral body. No retropulsed fragments. Degenerative disc disease throughout the thoracic spine, unchanged. Electronically Signed by Carl Morejon MD 05/31/2018 02:17 P
--- NOTE | 2018-05-31 17:28 | REP ---
CT abdomen pelvis with IV and oral contrast, multiphase scan: Study is initially performed during the arterial phase of enhancement and scanning is repeated during the equilibrium phase of enhancement. Comparison is 03/19/2017. On the comparison study there was a asymmetric bladder wall thickening on the left. On the current study the bladder is no longer identified, however, there is a urinary diversion in the abdominal right lower quadrant. The current studies performed as a continuation of the chest CT performed this same date. Please refer to the chest CT for findings in the chest. The hepatic parenchyma is homogeneous on both phases of the study. The gallbladder, pancreas and spleen are normal size and unremarkable. The adrenals are unremarkable. The kidneys are unremarkable except for simple cysts bilaterally. These were also present previously. The largest is in the lower pole of the left kidney measuring up to 4.5 cm. There is no hydronephrosis or hydroureter. The abdominal aorta is unremarkable except for occasional calcified atheroma. There is no retroperitoneal or mesenteric adenopathy or mass. There is no ascites. There is no bowel distension or obstruction. Pelvis: There is no ascites. There is no adenopathy. There is sigmoid colon diverticulosis. There is no CT evidence of diverticulitis. There are no lytic, blastic or destructive skeletal changes. There is advanced osteoarthritis of the left hip. Impression: There has been interim cystectomy with urinary diversion. There is no hydronephrosis. There are multiple renal simple cysts bilaterally. No renal masses are identified. There is no mesenteric, retroperitoneal or pelvic adenopathy. No ascites. Diverticulosis without diverticulitis. Advanced left hip osteoarthritis. Electronically Signed by Carl Morejon MD 05/31/2018 05:20 P
== END ==
LOC: M RAD 11:30
PROVIDERS: ATTEND Internal Medicine Medical Oncology
DX: Z85.51 Personal history of malignant neoplasm of bladder (principal); N28.1 Cyst of kidney, acquired; K57.30 Diverticulosis of large intestine without perforation or abscess without bleeding; M16.12 Unilateral primary osteoarthritis, left hip; Z90.6 Acquired absence of other parts of urinary tract
CPT/HCPCS: 71260; 74177; Q9963; Q9967

== ENCOUNTER → 2018-06-11 | Outpatient (CLI) | payer MEDICARE, OTHER ==
[~2018-06-11] MED LIST changes: -GASTROGRAFIN SOLUTION 30ML (Q9963) As Ordered ONE; -ISOVUE-370 76% 100ML VIAL (Q9967) As Ordered ONE
--- NOTE | 2018-06-12 09:05 | REP ---
PET/CT: History: Restaging urothelial malignancy. New lung nodule. 2 cm cavitary lesion left lower lobe of the lung. Comparisons: Comparison chest CT study is from May 31, 2018. Comparison CT abdomen study is from same date. TECHNIQUE: 55 minutes following the intravenous injection of a 9.73 mCi dose of F-18 FDG, three-dimensional PET scintigraphy is acquired from the skull base to the proximal thighs. Triplanar noncontrast CT scanning is acquired through the same anatomic range for attenuation correction, and image registration with scan parameters optimized to minimize radiation exposure to the patient. PET scintigraphy and CT datasets were fused and displayed on a workstation with multiplanar and projection display capability. PET/CT Findings: The recently identified cavitary nodule in the left lower lobe of the lung shows mildly hypermetabolic uptake. Maximum standard uptake value is 3.94. Morphologically, this is unchanged from the recent CT study. There is no abnormal mediastinal or hilar hypermetabolic uptake. No abnormal uptake is seen in the region of the aortopulmonary window. Abdominal findings include right renal cyst, mild right-sided hydronephrosis, a urinary diversion ileal loop and ileostomy and prior cystectomy. There is mild arthritis associated uptake in the left hip. No abnormal hypermetabolic uptake is seen in the abdomen or pelvis. Head and neck soft tissues are unremarkable. No other abnormal pulmonary parenchymal uptake is seen. Impression: The cavitary lung nodule in the left lower lobe shows mildly hypermetabolic uptake. No other abnormal hypermetabolic uptake is appreciated. Electronically Signed by Magdy De La Torre MD 06/12/2018 01:12 P
== END ==
LOC: M PLARAD 14:18
PROVIDERS: ATTEND Nurse Practitioner Family
DX: C67.9 Malignant neoplasm of bladder, unspecified (principal); R91.8 Other nonspecific abnormal finding of lung field; N28.1 Cyst of kidney, acquired
CPT/HCPCS: 78815; A9552

== ENCOUNTER → 2018-07-01 | Outpatient (CLI) | payer MEDICARE, OTHER ==
[~2018-07-01] MED LIST changes: -CRES20TA PO; +CRES20TA2 PO; -GLYCADSU PR; +LIDOCAINE 1% MDV 20ML VIAL As Ordered ONE; +SANI2SUP PR; +VITA-113 SL
--- NOTE | 2018-07-01 09:58 | REP ---
Chest x-ray: Single view. History: Post biopsy left lower lobe cavitary lesion. Status post CT guided needle biopsy. Comparison study: April 12, 2017. Findings: There is no evidence of pneumothorax or pulmonary parenchymal hemorrhage. Patient is rotated slightly to the left. The cavitary lesion is not visible on plain PA radiograph. Impression: No complication is seen. Electronically Signed by Magdy De La Torre MD 07/01/2018 09:49 A
--- NOTE | 2018-07-01 17:33 | REP ---
CT-GUIDED LEFT LOWER LOBE LUNG BIOPSY The procedure was performed under the direct supervision of Dr. De La Torre. The patient has a history of a cavitary lung nodule in the left lower lobe which is hypermetabolic on a previous PET scan dated 06/11/2018. The risks and benefits of the procedure were explained to the patient and informed consent was obtained. The left lower lobe lung nodule was localized using CT guidance. The skin was prepped and draped in a sterile fashion. 1% lidocaine was used as a local anesthetic. Using CT guidance a 19/20 gauge coaxial needle biopsy system was inserted and advanced into the nodule. Five core biopsy samples were obtained and sent to lab. The patient tolerated the procedure well and there were no immediate complications. After the appropriate amount of monitored convalescence the patient was discharged from the department. Reviewed by BANDAR Cruz 07/01/2018 04:09 P Electronically Signed by Magdy De La Torre MD 07/01/2018 05:24 P
== END ==
LOC: M RADPRO 08:14
PROVIDERS: ATTEND Internal Medicine Hematology & Oncology
DX: C34.82 Malignant neoplasm of overlapping sites of left bronchus and lung (principal); Z88.2 Allergy status to sulfonamides; Z85.51 Personal history of malignant neoplasm of bladder

== ENCOUNTER 2018-08-02 09:10 | Emergency (ER) | payer MEDICARE, OTHER ==
[~2018-08-02] VITALS: Ht 154.9 cm; Wt 57.3 kg
[~2018-08-02 09:10] MED LIST changes: -LIDOCAINE 1% MDV 20ML VIAL As Ordered ONE; +MAGN400T2 PO; +ONDA4TAB5 PO
[2018-08-02] MEDS ORDERED: VITA400T15 PO (09:24)
[2018-08-02] MEDS ORDERED: MODU5TA PO (09:24)
[2018-08-02] MEDS ORDERED: [UNRECOGNIZED DRUG - OTHER] (09:41)
[2018-08-02] MEDS ORDERED: ACETAMINOPHEN 500 MG TAB PO ONE (10:15)
[2018-08-02] MEDS ORDERED: LIDOCAINE 5% (LIDODERM) PATCH TD ONE (10:15)
[2018-08-02] MEDS ORDERED: ONDANSETRON 4MG/2ML VIAL (J2405) IV ONE (10:15)
[2018-08-02] MEDS: MORPHINE 2 MG/ML 1ML SYRINGE (J2270) IV PRN ×2 (10:33→11:46)
--- NOTE | 2018-08-02 11:54 | REP ---
Lumbar spine series: Five views. History: Pain. History of cancer. Findings: Lumbar vertebral body heights are preserved. There is straightening of the normal lumbar lordosis. Diffuse degenerative disc disease is seen. No focal bony destructive lesion is seen. Pedicles and posterior elements appear to be intact. Impression: Advanced degenerative spondylosis changes. No bony destructive lesion seen radiographically. Electronically Signed by Magdy De La Torre MD 08/02/2018 02:48 P
[2018-08-02] MEDS ORDERED: PERCOCET 5MG/325MG TAB PO ONE (12:45)
[2018-08-02] MEDS ORDERED: physical therapy (15:15)
[2018-08-02] MEDS ORDERED: PERC5TAB12 PO (15:16)
[2018-08-02] MEDS ORDERED: LIDO5DIS41 TD (15:17)
[2018-08-02 15:40] VITALS: BP 145/63
[2018-08-02] MEDS ORDERED: **NOTE PATIENT COMMENT** MISC XX SCH (21:00)
[2018-08-06] MEDS ORDERED: AUGM500T34 PO (11:52)
== END 2018-08-02 15:41 | disposition home or self-care (01) ==
LOC: M ED 09:10 → EDBD 09:10 → M ED 15:41
DX: M47.817 Spondylosis without myelopathy or radiculopathy, lumbosacral region (principal); C34.82 Malignant neoplasm of overlapping sites of left bronchus and lung; C67.9 Malignant neoplasm of bladder, unspecified; D63.8 Anemia in other chronic diseases classified elsewhere; I10 Essential (primary) hypertension; N30.10 Interstitial cystitis (chronic) without hematuria; Z79.1 Long term (current) use of non-steroidal anti-inflammatories (NSAID); Z79.891 Long term (current) use of opiate analgesic; Z87.891 Personal history of nicotine dependence; Z79.899 Other long term (current) drug therapy
CPT/HCPCS: 72110; 96374; 96375; 96376; 99284; J2270; J2405

== ENCOUNTER → 2018-08-05 | Outpatient (REF) | payer MEDICARE, OTHER ==
[~2018-08-05] MED LIST changes: +AUGM500T34 PO; +LIDO5DIS41 TD; +MIRA3350 PO; +MODU5TA PO; +PERC5TAB12 PO; +VITA400T15 PO; +[UNRECOGNIZED DRUG - OTHER]; +physical therapy
[2018-08-05 20:47] LABS: APPEARANCE, URINE HAZY (CLEAR); BACTERIA, URINE AUTO NEGATIVE (NEGATIVE); BILIRUBIN, URINE AUTO NEGATIVE (NEGATIVE); BLOOD, URINE BLOOD 2+ (NEGATIVE); COLOR, URINE YELLOW (YELLOW); GLUCOSE, URINE (UA) AUTO NEGATIVE (NEGATIVE); KETONE, URINE AUTO NEGATIVE (NEGATIVE); LEUKOCYTE ESTERASE, URINE AUTO TRACE (NEGATIVE); MUCUS, URINE SMALL (NEGATIVE); NITRITE, URINE AUTO NEGATIVE (NEGATIVE); PROTEIN, URINE AUTO 2+ mg/dL (NEGATIVE); RBC, URINE AUTO 16 /HPF (0-3); RENAL EPITHELIAL CELLS 3 /HPF; SPECIFIC GRAVITY URINE AUTO 1.015 (1.002-1.035); SQUAMOUS EPITHELIAL CELL UR AU 0 /HPF (0-6); TRANSITIONAL EPITHELIAL AUTO <1 /HPF; UROBILINOGEN, URINE AUTO 0.2 mg/dL (0.0-2.0); WBC, URINE AUTO 44 /HPF (0-3)
== END ==
LOC: M LAB REF 11:22
PROVIDERS: ATTEND Physician Assistant Medical
DX: M54.5 Low back pain (principal)

== ENCOUNTER 2018-08-07 09:49 | Emergency (ER) | payer MEDICARE, OTHER ==
[~2018-08-07] VITALS: Ht 154.9 cm; Wt 56.8 kg
[~2018-08-07 09:49] MED LIST changes: -MIRA3350 PO
[2018-08-07] MEDS ORDERED: LORazepam 2 MG/ML VIAL (J2060) IV STA (10:40)
[2018-08-07] MEDS ORDERED: ONDANSETRON 4MG/2ML VIAL (J2405) IV ONE (10:45)
[2018-08-07] MEDS: GASTROGRAFIN SOLUTION 30ML PO SCH ×2 (11:13→11:40)
[2018-08-07 11:17] LABS: BASO % 0.3 % (0.0-1.0); EOS # 0.1 10^3/uL (0.0-0.50); EOS % 0.8 % (0.0-3.0); HEMATOCRIT 39.1 % (36.0-47.0); HEMOGLOBIN 12.8 g/dl (12.0-15.5); LYMPH % 1.8 % (24.0-44.0); MEAN CORPUSCULAR HEMOGLOBIN 34.6 pg (27.0-33.0); MEAN CORPUSCULAR HGB CONC 32.7 g/dl (32.0-36.5); MEAN CORPUSCULAR VOLUME 105.7 fl (80.0-96.0); MONO # 0.8 10^3/uL (0.0-0.8); MONO % 6.5 % (0.0-5.0); NEUTROPHILS # 10.6 10^3/uL (1.8-7.7); NEUTROPHILS % 89.7 % (36.0-66.0); PLATELET COUNT, AUTOMATED 383 10^3/uL (150-450); WHITE BLOOD COUNT 11.8 10^3/uL (4.0-10.0)
[2018-08-07 11:39] LABS: LYMPH # 0.2 10^3/uL (1.5-4.5)
[2018-08-07 11:44] LABS: ALBUMIN 3.4 GM/DL (3.2-5.2); ALT/SGPT 12 U/L (12-78); BILIRUBIN,DIRECT < 0.1 MG/DL (0.0-0.2); BILIRUBIN,TOTAL 0.4 MG/DL (0.2-1.0); BLOOD UREA NITROGEN 25 MG/DL (7-18); CALCIUM LEVEL 9.2 MG/DL (8.8-10.2); CARBON DIOXIDE LEVEL 25 MEQ/L (21-32); CHLORIDE LEVEL 102 MEQ/L (98-107); CK-MB VALUE MASS < 1.0 NG/ML (<3.6); CPK CREATINE PHOSPHOKINASE 51 U/L (26-192); CREATININE FOR GFR 0.86 MG/DL (0.55-1.30); GLOMERULAR FILTRATION RATE > 60.0 (>32); GLUCOSE, FASTING 143 MG/DL (70-100); MB/CK RELATIVE INDEX 1.96 (< OR =4); POTASSIUM SERUM 5.1 MEQ/L (3.5-5.1); SODIUM LEVEL 135 MEQ/L (136-145); TOTAL PROTEIN 8.2 GM/DL (6.4-8.2); TROPONIN I < 0.02 NG/ML (< 0.10)
[2018-08-07] MEDS ORDERED: ISOVUE-370 76% 100ML VIAL (Q9967) As Ordered ONE (12:37)
[2018-08-07] MEDS ORDERED: METHYLNALTREXONE BROMIDE 12 MG/0.6 ML VIAL (RELISTOR) SC ONE ×2 (13:45→14:30)
--- NOTE | 2018-08-07 13:47 | REP ---
CT of the abdomen and pelvis with IV and oral contrast for abdominal pain and low back pain: Comparison is with the abdomen and pelvis CT dated 05/31/2018. The patient has a history of cystectomy and urinary diversion. Additionally, the patient has a history of pancreatitis and hysterectomy and indicates that she has had back surgery chest week AC has a history of diverticulitis. The visualized lung gauthier are unremarkable except for curvilinear parenchymal scarring in the lower lobes. The hepatic parenchyma is homogeneous. The gallbladder and pancreas are unremarkable. Spleen is normal size and unremarkable. The adrenals are unremarkable. There are bilateral renal cortical and parapelvic cysts. These are unchanged. There is no hydronephrosis. Urinary diversion procedure is identified, unchanged. Abdominal aorta is unremarkable except for calcified atheroma. There is no retroperitoneal adenopathy or mass. There is no mesenteric adenopathy. There is no ascites. Pelvis: There is no ascites or adenopathy. The appendix is unremarkable. The uterus is surgically absent. The adnexa are unremarkable. There is no pelvic adenopathy or ascites. There are no lytic, blastic or destructive skeletal changes. There is a left L5 laminectomy, unchanged. There is multilevel degenerative disc disease throughout the lumbar spine, unchanged. Impression: There is no bowel distension or obstruction. There is a cystectomy with urinary diversion. No hydronephrosis. Bilateral renal parapelvic and cortical cysts, unchanged. No adenopathy, mass or ascites. Bilateral hip osteoarthritis, more advanced on the left, unchanged. No bowel distension or obstruction. No adenopathy, mass or ascites. No lytic, blastic or destructive skeletal changes. L5 left laminectomy. Electronically Signed by Carl Morejon MD 08/07/2018 01:38 P
[2018-08-07] MEDS ORDERED: PERCOCET 5MG/325MG TAB PO ONE (14:00)
--- NOTE | 2018-08-07 14:03 | REP ---
CT LUMBAR SPINE WITHOUT CONTRAST: HISTORY: Back pain. A diffuse disc bulge is present at the L1-2 level. There is minimal compression of the thecal sac. The L1 nerves exit the neural foramina without compression. A diffuse disc bulge is present at the L2-3 level. There is minimal compression of the thecal sac. There is hypertrophy of the posterior articulating facets. The L2 nerves exit the neural foramina without compression. A diffuse disc bulge is present at the L3-4 level. There is hypertrophy of the ligamenta flava and posterior articulating facets. These findings produce mild central canal stenosis. The L3 nerves exit the neural foramina without compression. A diffuse disc bulge is present at the L4-5 level. There is hypertrophy of the ligamenta flava and posterior articulating facets. These findings produce moderate central canal stenosis. The L4 nerves exit the neural foramina without compression. A diffuse disc bulge and small left paracentral disc protrusion are present at the L5-S1 level. There is minimal compression of the thecal sac and left S1 nerve as it exits the thecal sac. There is hypertrophy of the posterior articulating facets. There is compression of the left L4 nerve in the neural foramen. The right L4 nerve exits the neural foramen without compression. A left laminectomy defect is present. The lumbar intervertebral discs are decreased in height consistent with disc degeneration. There is no subluxation. Bilateral renal cysts are present. IMPRESSION: 1. Diffuse disc bulges at the L1-2 and L2-3 levels with minimal thecal sac compression. 2. Mild central canal stenosis at the L3-4 level secondary to disc bulge, ligamentous, and facet hypertrophy. 3. Moderate central canal stenosis at the L4-5 level secondary to disc bulge, ligamentous and facet hypertrophy. 4. Diffuse disc bulge and small left paracentral disc protrusion at the L5-S1 level with minimal compression of the thecal sac and left S1 nerve as it exits the thecal sac. There is compression of the left L5 nerve in the neural foramen. A left laminectomy defect is present. Electronically Signed by Dilan Ritter MD 08/07/2018 02:16 P
[2018-08-07] MEDS ORDERED: MIRA3350 PO (16:27)
[2018-08-07] MEDS ORDERED: COLA100C5 PO (16:27)
[2018-08-07 16:54] VITALS: BP 146/65
--- NOTE | 2018-08-13 13:55 | ED PDOC ---
Post-Departure Follow-Up lavern rodriguez faxed formal report of ct ls spine for fu Bay Simpson MD August 13, 2018 13:55
== END 2018-08-07 17:00 | disposition home or self-care (01) ==
LOC: EDBD 09:49 → M ED 09:49
DX: K59.03 Drug induced constipation (principal); M54.5 Low back pain; I10 Essential (primary) hypertension; E78.5 Hyperlipidemia, unspecified; Z87.440 Personal history of urinary (tract) infections; K21.9 Gastro-esophageal reflux disease without esophagitis; H40.9 Unspecified glaucoma; Z85.51 Personal history of malignant neoplasm of bladder; Z85.118 Personal history of other malignant neoplasm of bronchus and lung; M16.0 Bilateral primary osteoarthritis of hip; M96.1 Postlaminectomy syndrome, not elsewhere classified; M51.26 Other intervertebral disc displacement, lumbar region; M51.27 Other intervertebral disc displacement, lumbosacral region; M48.061 Spinal stenosis, lumbar region without neurogenic claudication; Z79.899 Other long term (current) drug therapy; Z88.2 Allergy status to sulfonamides; Z88.8 Allergy status to other drugs, medicaments and biological substances
CPT/HCPCS: 72131; 74177; 80048; 80076; 82550; 82553; 84484; 85025; 94760; 96374; 96375; 99284; J2060; J2405; Q9963; Q9967

== ENCOUNTER → 2018-08-26 | Outpatient (CLI) | payer MEDICARE, OTHER ==
[~2018-08-26] MED LIST changes: +DECA4TAB PO; +MIRA3350 PO; +PROHANCE 279.3MG/ML 5ML VIAL (A9576) As Ordered ONE
--- NOTE | 2018-08-26 11:18 | REP ---
MR LUMBAR SPINE WITHOUT CONTRAST: HISTORY: Back pain. CONTRAST: ProHance 10 mL. COMPARISON: CT 08/07/2018 Decreased signal intensity on T2-weighted images is present in the lumbar intervertebral discs. The discs are decreased in height. These findings are consistent with disc degeneration. A disc bulge is present at the T12-L1 level. There is minimal effacement of the thecal sac without spinal cord compression. The T12 neural foramina are patent on sagittal images. A diffuse disc bulge is present at the L1-2 level. There is minimal compression of the thecal sac. The L1 nerves exit the neural foramina without compression. A diffuse disc bulge is present at the L2-3 level. There is minimal compression of the thecal sac. There is hypertrophy of the ligamenta flava and posterior articulating facets. The L2 nerves exit the neural foramina without compression. A diffuse disc bulge is present at the L3-4 level. There is hypertrophy of the ligamenta flava and posterior articulating facets. These findings produce minimal central canal stenosis. The L3 nerves exit the neural foramina without compression. A diffuse disc bulge is present at the L4-5 level. There is hypertrophy of the ligamenta flava and posterior articulating facets. These findings produce mild central canal stenosis. The L4 nerves exit the neural foramina without compression. A diffuse disc bulge and small central disc protrusion are present at the L5-S1 level. There is minimal compression of the thecal sac. There is hypertrophy of the posterior articulating facets. There is compression of the left L5 nerve in the neural foramen. The right L5 nerve exits the neural foramen without compression. A left laminectomy defect is present. Enhancing scar tissue is present in the left lateral aspect of the spinal canal. The scar tissue involves the left S1 nerve. There are 3 mm of retrolisthesis of L5 on S1. The conus medullaris is normal in appearance terminating at the level of the L1-2 intervertebral disc. Increased signal intensity on T2-weighted images is present in the endplates of the L1 through S1 vertebral bodies. This represents degenerative change. Bilateral renal cysts are present. IMPRESSION: 1. Diffuse disc bulge at the L1-2 and L2-3 levels with minimal thecal sac compression. 2. Minimal central canal stenosis at the L3-4 level secondary to disc bulge, ligamentous and facet hypertrophy. 3. Mild central canal stenosis at the L4-5 level secondary to disc bulge, ligamentous and facet hypertrophy. 4. Diffuse disc bulge and small central disc protrusion at the L5-S1 level with minimal thecal sac compression. There is compression of the left L5 nerve in the neural foramen. A left laminectomy defect is present. Scar tissue involves the left S1 nerve. Electronically Signed by Dilan Ritter MD 08/26/2018 11:21 A
== END ==
LOC: M RAD 08:47
PROVIDERS: ATTEND Internal Medicine Hematology & Oncology
DX: M51.27 Other intervertebral disc displacement, lumbosacral region (principal); M51.26 Other intervertebral disc displacement, lumbar region; M48.061 Spinal stenosis, lumbar region without neurogenic claudication
CPT/HCPCS: 72158; A9576

== ENCOUNTER 2018-09-09 09:28 | Inpatient (IN) | payer MEDICARE, OTHER ==
[~2018-09-09] VITALS: Ht 152.4 cm; Wt 52.3 kg
[~2018-09-09 09:28] MED LIST changes: +PANTOPRAZOLE 40MG TAB (PROTONIX) PO SCH; -PROHANCE 279.3MG/ML 5ML VIAL (A9576) As Ordered ONE
[2018-09-09] MEDS ORDERED: ACET-897 PO (10:22)
[2018-09-09] MEDS ORDERED: VITAD1000T PO (10:22)
[2018-09-09] MEDS ORDERED: COLA100C5 PO (10:22)
[2018-09-09] MEDS ORDERED: MODU5TA PO (10:22)
[2018-09-09] MEDS ORDERED: NEXI40CA PO (10:22)
[2018-09-09] MEDS ORDERED: ATEN50TA2 PO (10:22)
[2018-09-09] MEDS ORDERED: OXYC1TAB23 PO (10:26)
[2018-09-09] MEDS ORDERED: GABA-843 PO (10:26)
[2018-09-09] MEDS ORDERED: ONDA4TAB5 PO (10:26)
[2018-09-09] MEDS ORDERED: CRES20TA2 PO (10:26)
[2018-09-09] MEDS ORDERED: RAMI1CAP24 PO (10:26)
[2018-09-09] MEDS ORDERED: LIDO1PAD TOP (10:26)
[2018-09-09] MEDS ORDERED: TIZA2TA PO (10:26)
[2018-09-09] MEDS ORDERED: MIRA3350 PO (10:26)
[2018-09-09] MEDS ORDERED: MAGN400T PO (10:26)
[2018-09-09] MEDS ORDERED: TECE1200 IV (10:26)
[2018-09-09] MEDS ORDERED: ONDANSETRON 4MG/2ML VIAL (J2405) IV ONE (10:30)
[2018-09-09] MEDS: MORPHINE 2 MG/ML 1ML SYRINGE (J2270) IV PRN ×2 (10:31→12:34)
[2018-09-09] MEDS ORDERED: MORPHINE 2 MG/ML 1ML SYRINGE (J2270) IV ONE (12:15)
[2018-09-09 13:52] LABS: BASO % 0.4 % (0.0-1.0); EOS # 0.2 10^3/uL (0.0-0.50); HEMOGLOBIN 10.2 g/dl (12.0-15.5); LYMPH # 0.7 10^3/uL (1.5-4.5); MEAN CORPUSCULAR HEMOGLOBIN 32.5 pg (27.0-33.0); MEAN CORPUSCULAR HGB CONC 31.9 g/dl (32.0-36.5); MEAN CORPUSCULAR VOLUME 101.9 fl (80.0-96.0); MONO # 0.6 10^3/uL (0.0-0.8); MONO % 8.4 % (0.0-5.0); NEUTROPHILS # 5.7 10^3/uL (1.8-7.7); NEUTROPHILS % 78.2 % (36.0-66.0); PLATELET COUNT, AUTOMATED 267 10^3/uL (150-450); RED BLOOD COUNT 3.14 10^6/uL (4.00-5.40); WHITE BLOOD COUNT 7.4 10^3/uL (4.0-10.0)
[2018-09-09 14:11] LABS: ALBUMIN 3.2 GM/DL (3.2-5.2); ALT/SGPT 26 U/L (12-78); BILIRUBIN,TOTAL 0.3 MG/DL (0.2-1.0); BLOOD UREA NITROGEN 24 MG/DL (7-18); CALCIUM LEVEL 8.7 MG/DL (8.8-10.2); CARBON DIOXIDE LEVEL 22 MEQ/L (21-32); CHLORIDE LEVEL 110 MEQ/L (98-107); CREATININE FOR GFR 0.68 MG/DL (0.55-1.30); GLOMERULAR FILTRATION RATE > 60.0 (>32); GLUCOSE, FASTING 97 MG/DL (70-100); POTASSIUM SERUM 4.4 MEQ/L (3.5-5.1); SODIUM LEVEL 140 MEQ/L (136-145); TOTAL PROTEIN 6.7 GM/DL (6.4-8.2)
[2018-09-09] MEDS ORDERED: tiZANidine 4 MG TAB PO ONE (16:00)
[2018-09-09] MEDS ORDERED: MIRALAX *UNIT DOSE* 17GM PACKET PO PRN (16:00)
[2018-09-09] MEDS ORDERED: MORPHINE 4 MG/ML 1ML VIAL/SYRINGE (J2270) IV ONE (16:00)
[2018-09-09] MEDS: ACETAMINOPHEN 500 MG TAB PO SCH ×2 (16:30→21:10)
--- NOTE | 2018-09-09 17:22 | CR ---
DATE OF CONSULTATION: 09/09/2018 INDICATION: Intractable back pain. HISTORY OF PRESENT ILLNESS: Asiya is a pleasant 82-year-old female, accompanied by her , who was admitted to the hospital for intractable back pain. She has a history of a laminectomy 25 years ago, did well with that. She underwent surgery and chemotherapy for bladder cancer years ago and then more recently was diagnosed with an isolated pulmonary metastatic lesion and is on some type of immunotherapy with an injection every 3 weeks. She believes those injection started around 6 weeks ago and that coincides with the worsening back pain. She is seeing Simeon Schmid in the office for management of her back pain with gabapentin and other medications and is not happening - the patient reports the pain is primarily in her lumbar spine, but it does radiate up into the thoracic spine. She specifically denies any pain radiating down into her legs. She denies stool incontinence. Denies saddle anesthesia. She has a urostomy. For the patient's full past medical history, past surgical history, medications, allergies, social history and review of systems, please see the admitting history and physical. PHYSICAL EXAMINATION: Exam reveals an elderly female in no distress. She is alert and oriented times three. She appears slightly younger than her stated age. She is very pleasant. Cardiovascular: 2+ posterior tibial (PT) pulse. Pulmonary: Nonlabored breathing. Musculoskeletal: The patient looks uncomfortable in her stretcher. She has 5/5 extensor hallucis longus (EHL), flexor hallucis longus (FHL), tibialis anterior (TA) AND gastroc-soleus (GS). She has good quad strength other than some limitations from pain. She has 1+ Achilles reflex bilaterally. Sensation to light touch L2 through S1 is intact. IMAGING STUDIES: No new imaging today. There is an MRI of the lumbar thoracic spine pending. I did review the MRI of the lumbar spine from approximately 2 weeks ago with multilevel degenerative findings including small disc bulges and facet hypertrophy. She has evidence of a prior laminectomy with some radiographic evidence of L5 nerve root compression on the left. No significant central canal stenosis. The thoracic spine is not imaged. ASSESSMENT/PLAN: Ms. Guy is an 82-year old female with intractable back pain. She was supposed to have an appointment through her oncologist today; she was unable to make that. She is having trouble getting out of bed even with a walker. My recommendations are as follows: An MRI of the thoracic and lumbar spine. She has no neurologic deficits, so if her pain is not well controlled tonight, it is reasonable to hold off until tomorrow to get those MRIs until her pain is better controlled. Would certainly be looking to rule out any type of osteomyelitis or discitis or new metastatic lesion. I do recommend a pain management consult. Although the patient clearly is not looking for narcotics, her pain is not well controlled, and she is a cancer patient, so reasonable to add on a stronger opioid. In terms of ambulation, she should try to ambulate, get out of bed at least two to three times a day with a walker. She will need a physical therapy consult. I did inform the patient that I have very limited knowledge in oncology, but it may be worth at least touching base with her oncologist to see how long she is going to be on that injectable medication, and if there is any alternative once this round has finished. I also was clear that I have no insight on whether that medication can cause back pain, but those would all be questions that would be appropriate for her oncology team. Will give final recommendations based off of the updated MRIs. At this point, I do not see any role for surgery or even cortisone shots.
[2018-09-09 17:58] VITALS: BP 159/72
--- NOTE | 2018-09-09 18:22 | HPEPDOC ---
[facility] Medical History & Physical Date of Admission Sep 09, 2018 Date of Service: Sep 09, 2018 History and Physical PRIMARY CARE PROVIDER: JENI LANE (pt was signed out to Dr. Melvin Mcgovern) CHIEF COMPLAINT: intractable low back pain for the past six weeks, blood in urostomy back x 2weeks, diarrhea x 3 days HISTORY OF PRESENTING ILLNESS: (provided by the patient with near the stretcher) 82 year old female who lives at home with her with past medical history significant for bladder cancer diagnosed by Dr. Lunsford 04/12, refused chemo, underwent robotic assisted radical cystectomy, total hysterectomy, b/l salpingo-oophorectomy, b/l extended LN dissection, intracorporeal ileoconduit and urinary diversion creation in 05/13, developed metastatic pulmonary nodule diagnosed by biopsy in 06/2018 , currently on immunotherapy which was started in 08/11 ,managed by at the [facility], chronic T12-L5 disc bulges, laminectomy in 1999, and L5 nerve compression seen on 08/26/2018 MRI lumbar spine presents to the emergency room with six week history of worsening low back pain, unable to get an appointment with the orthopedic group. She describes the pain as "horrible" worse with sitting and walking 10/10 on pain scale, better with lying down, no relief with moist heat/oxycodone twice a day, with difficulty ambulating at home requiring assistance from her with her ADLs. Between her and her walker, pt has been able to stay at home without falls. Due to increasing frustration, pt decided to come to the ER to expedite being seen by a physician. She also c/o blood tinged urine coming out of her urostomy for the past 2 weeks, which resolves on its own without intervention. She has had increased pain at the site with some skin breakdown which she thinks is causing the hematuria. Her RN daughter has recommended for her to do more frequent dressing changes. Despite this, she denied symptoms of anemia and had no chest pain, fatigue, weakness, pallor, shortness or breath, palpitations, lightheadedness, dizziness, or near syncope. Over the past 2-3 days, since being on the immunotherapy since 08/11, pt has noticed watery, nonbloody diarrhea ,about 9-10 times on Sunday, accompanied by some nausea and decreased appetite without weight loss or vomi ting. which resolved without intervention. She denied any abdominal pain. PAST MEDICAL HISTORY: bladder cancer stage PT3a NO MX diagnosed by Dr. Smith 05/13 s/p robotic assisted radical cystectomy plus total hysterectomy plus b/l salpingo- oopherectomy, b/l extended LN dissection, intracorporeal ileoconduit and urinary diversion creation, Lower gastrointestinal (GI) bleed, previous cigare tte smoker, gastroesophageal reflux disease (GERD), hypertension, hyperlipidemia, peripheral neuropathy,osteoporosis, SSA/SSB positive, High grade urothelial carcinoma -refused chemo, chronic constipation, macrocytic mild anemia, nicotine dependence tried to quit 04/12, pancreatitis 2016 admitted to [facility]. PAST SURGICAL HISTORY: lumbar laminectomy 1999, s/p robotic assisted radical cystectomy plus total hysterectomy plus b/l salpingo-oopherectomy, b/l extended LN dissection, in tracorporeal ileoconduit and urinary diversion creation in 05/13, pulmonary nodule biopsy 07/12,EGD colonoscopy 2013 Dr. Pollard. SOCIAL HISTORY: previous smoker, 1ppd x 20 years, denies ETOH use, lives with . retired. FAMILY HISTORY: Father at the age of 56 in an MVA. Her mother at the age of 43 due to breast cancer. She has a brother who is 76, due to CHF, diabetes mellitus, breast cancer. A brother who is 80, type 2 diabetes. A son who is currently alive and well. One daughter who has history of Crohn's disease. HOME MEDICATIONS: PLS SEE BELOW ALLERGIES: TRIMETHOPRIM-SULFAMETHOXAZOLE (TMP/SMX). did not note allergy to prednisone on history during the patient's admission. REVIEW OF SYSTEMS: negative 10 point systems review,aside from positive findings on HPI. PHYSICAL EXAMINATION: VITALS: pls see below GENERAL: elderly female lying flat on her back on the ER stretcher without respiratory distress. AAOx3. no cyanosis, use of accessory respiratory muscles HEENT: NCAT PERRL EOMI poor dentition moist mucus membranes no cervical adenopathy or thyromegaly no carotid bruits Heart: S1S2 RRR no murmurs noted. nondisplaced PMI no carotid bruits 2+ dorsalis pedis, and posterior tibial (PT) pulses. Lungs: Air entry is equal bilaterally CTAB no wheezing, rales, or rhonchi Abdomen: soft nontender non distended. ileal conduit with urinary diversion with yellow urine and no hematuria. Extremities: no cyanosis, clubbing, or edema Neuro: no sensory distrubance. motor 5/5 b/l upper extremities. gait not tested. slr negative. able to lift b/l LE without pain up to 45 degrees. LABORATORY DATA, IMAGING STUDIES, MICROBIOLOGY: PLS SEE BELOW ASSESSMENT AND PLAN: 82 year old female who lives at home with her with past medical history significant for bladder cancer diagnosed by Dr. Lunsford 04/12, refused chemo, underwent robotic assisted radical cystectomy, total hysterectomy, b/l salpingo-oopherectomy, b/l extended LN dissection, intracorporeal ileoconduit and urinary diversion creation in 05/13, developed metastatic pulmonary nodule diagnosed by biopsy in 06/2018 , currently on immunotherapy which was started in 08/11 ,managed by Dr. Porter at the [facility], chronic T12-L5 disc bulges, laminectomy in 1999, and L5 nerve compression seen on 07/2018 MRI lumbar spine presents to the emergency room with six week history of worsening low back pain, unable to get an appointment with the orthopedic group. She describes the pain as "horrible" worse with sitting and walking 10/10 on pain scale, better with lying down, no relief with moist heat/oxycodone twice a day, with difficulty ambulating at home requiring assistance from her with her ADLs. Between her and her walker, pt has been able to stay at home. Due to increasing frustration, pt decided to come to the ER to expedite being seen by a physician. She also c/o blood tinged urine coming out of her urostomy for the past 2 weeks, which resolves on its own without intervention. She has had increased pain at the site with some skin breakdown which she thinks is causing the hematuria. Her RN daughter has recommended for her to do more frequent dressing changes. Despite this, she denied symptoms of anemia and had no chest pain, fatigue, weakness, pallor, shortness or breath, palpitations, lightheadedness, dizziness, or near syncope. Over the past 2-3 days, since being on the immunotherapy since 08/11, pt has noticed watery, nonbloody diarrhea ,about 9-10 times on Sunday, accompanied by some nausea and decreased appetite without weight loss or vomiting. which resolved without intervention. She denied any abdominal pain. Intractable low back pain -MRI lumbar spine 08/26/18: disc bulges T12 to L5 with mild central canal stenosis and L5 nerve compression. -Due to worsening pain with knkown history of metastatic bladder ca to the lungs, repeat MRI of thoracic and lumbar spine to rule out metastasis. -no signs of myelopathy. -pain management and orthopedic surgery have been consulted -per ortho, activity as tolerated with walker. PT consulted. -fall precautions Abnormal UA -most likely contaminated in light of ileal conduit with urinary diversion. no fever or chills, but with worsening back pain attributable to central canal stenosis and lumbar disc bulges -trial of macrodantin from history of ecoli and klebsiella. 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 -if recurrent, monitor electrolytes, check GI panel, and may consider heme-onc consult for high dose prednisone gastroesophageal reflux disease (GERD) -resumed Protonix, hypertension, -resume home beta harpreet hyperlipidemia, -resumed statin osteoporosis, -on vitamin d supplement DVT prophylaxis: compression stockings Vital Signs Vital Signs Date Time Temp Pulse Resp B/P (MAP) Pulse Ox O2 Delivery O2 Flow Rate FiO2 09/09/18 13:29 16 09/09/18 13:01 98.4 09/09/18 12:35 62 120/56 (77) 97 Room Air Laboratory Data Labs 24H Laboratory Tests 2 09/09/18 10:41: Urine Color YELLOW, Urine Appearance CLOUDYH, Urine pH 5.0, Urine Specific [place] 1.012, Urine Protein 1+H, Urine Glucose (UA) NEGATIVE, Urine Ketones NEGATIVE, Urine Blood 2+H, Urine Nitrite POSITIVEH, Urine Bilirubin NEGATIVE, Urine Urobilinogen 0.2, Urine Leukocyte Esterase 3+H, Urine WBC (Auto) 164H, Urine RBC (Auto) 56H, Urine Hyaline Casts (Auto) 2, Urine Bacteria (Auto) 3+H, Urine Squamous Epithelial Cells 0, Urine Mucus (Auto) SMALL, Urine Sperm (Auto) 09/09/18 13:21: Immature Granulocyte % (Auto) 2.0, White Blood Count 7.4, Red Blood Count 3.14L, Hemoglobin 10.2L, Hematocrit 32.0L, Mean Corpuscular Volume 101.9H, Mean Corpuscular Hemoglobin 32.5, Mean Corpuscular Hemoglobin Concent 31.9L, Red Cell Distribution Width 12.3, Platelet Count 267, Neutrophils (%) (Auto) 78.2H, Lymphocytes (%) (Auto) 9.0L, Monocytes (%) (Auto) 8.4H, Eosinophils (%) (Auto) 2.0, Basophils (%) (Auto) 0.4, Neutrophils # (Auto) 5.7, Lymphocytes # (Auto) 0.7L, Monocytes # (Auto) 0.6, Eosinophils # (Auto) 0.2, Basophils # (Auto) 0.0, Nucleated Red Blood Cells % (auto) 0.0, Anion Gap 8, Glomerular Filtration Rate > 60.0, Blood Urea Nitrogen 24H, Creatinine 0.68, Sodium Level 140, Potassium Level 4.4, Chloride Level 110H, Carbon Dioxide Level 22, Calcium Level 8.7L, Aspartate Amino Transf (AST/SGOT) 19, Alanine Aminotransferase (ALT/SGPT) 26, Alkaline Phosphatase 173H, Total Bilirubin 0.3, Total Protein 6.7, Albumin 3.2, Albumin/Globulin Ratio 0.91L CBC/BMP Laboratory Tests 09/09/18 13:21 Red Blood Count 3.14 L, Mean Corpuscular Volume 101.9 H, Mean Corpuscular Hemoglobin 32.5, Mean Corpuscular Hemoglobin Concent 31.9 L, Red Cell Distribution Width 12.3, Neutrophils (%) (Auto) 78.2 H, Lymphocytes (%) (Auto) 9.0 L, Monocytes (%) (Auto) 8.4 H, Eosinophils (%) (Auto) 2.0, Basophils (%) (Auto) 0.4, Neutrophils # (Auto) 5.7, Lymphocytes # (Auto) 0.7 L, Monocytes # (Auto) 0.6, Eosinophils # (Auto) 0.2, Basophils # (Auto) 0.0, Calcium Level 8.7 L, Aspartate Amino Transf (AST/SGOT) 19, Alanine Aminotransferase (ALT/SGPT) 26, Alkaline Phosphatase 173 H, Total Bilirubin 0.3, Total Protein 6.7, Albumin 3.2 Microbiology Microbiology 09/09/18 Blood Culture, Received Pending 09/09/18 Blood Culture, Received Pending 09/09/18 Urine Culture, Received Pending Home Medications Scheduled Acetaminophen (Tylenol Extra Strength) 500 Mg Tablet, 1,000 MG PO TID Amiloride/Hctz (Amiloride HCl-Hctz 5-50 mg Tab) 1 Each Tablet, 1 EA PO DAILY Atenolol (Atenolol) 50 Mg Tablet, 50 MG PO QHS Atezolizumab (Tecentriq) Unknown Strength Vial, 1 DOSE IV ASDIRECTED EVERY 21 DAYS - DUE TO RECEIVE NEXT DOSE 09/13/18 Esomeprazole Magnesium (Nexium) 40 Mg Capsule.dr, 40 MG PO DAILY Gabapentin (Gabapentin) 300 Mg Capsule, 300 MG PO BID Magnesium Oxide (Magnesium Oxide) 400 Mg Tablet, 400 MG PO DAILY Ramipril (Ramipril) 5 Mg Capsule, 5 MG PO BID Rosuvastatin Calcium (Crestor) 20 Mg Tablet, 20 MG PO QHS Vitamin D (Vitamin D3) 1,000 Unit Tablet, 1,000 UNITS PO DAILY Scheduled PRN Docusate Sodium (Colace) 100 Mg Capsule, 200 MG PO BID PRN for CONSTIPATION Lidocaine (Lidocaine) 5% Adh..patch, 1 PATCH TOP DAILY PRN for PAIN APPLY TO LOWER BACK Ondansetron HCl (Ondansetron HCl) 4 Mg Tablet, 4 MG PO Q8H PRN for NAUSEA OR VOMITING Oxycodone HCl/Acetaminophen (Oxycodone-Acetaminophen 5-325) 1 Each Tablet, 1 TAB PO Q6H PRN for PAIN Polyethylene Glycol 3350 (Miralax) 119 Gm Powder, 17 GM PO DAILY PRN for CONSTIPATION Tizanidine HCl (Tizanidine HCl) 2 Mg Tablet, 2 MG PO TID PRN for SPASMS 1/2 TO 1 TAB NEEDED Allergies Coded Allergies: Sulfa (Sulfonamide Antibiotics) (Verified Allergy, Unknown, 08/07/18) prednisone (Verified Adverse Reaction, Mild, FACIAL FLUSHING, 08/07/18) A-FIB/CHADSVASC A-FIB History Current/History of A-Fib/PAF?: No Current PO Anticoag Therapy: No ILDEFONSO MARROQUIN MD Sep 09, 2018 14:26
[2018-09-09] MEDS: MAGNESIUM OXIDE 400 MG TAB (MAG-OX) PO SCH (18:49)
[2018-09-09] MEDS: VITAMIN D 1,000 INTERNATIONAL UNITS TABLET PO SCH (18:49)
[2018-09-09] MEDS: PERCOCET 5MG/325MG TAB PO PRN (18:50)
[2018-09-09 20:00] VITALS: BP 114/57
[2018-09-09] MEDS: GABAPENTIN 300 MG CAP PO SCH (21:10)
[2018-09-09] MEDS: tiZANidine 4 MG TAB PO SCH (21:11)
[2018-09-09] MEDS: ROSUVASTATIN 10 MG TAB (CRESTOR) PO SCH (21:11)
[2018-09-09] MEDS: NITROFURANTOIN (MACROBID) 100 MG CAP PO SCH (21:12)
[2018-09-09] MEDS: ATENOLOL 50 MG TAB PO SCH (21:12)
[2018-09-09] MEDS: ONDANSETRON 4 MG TAB (S0181) PO PRN (21:15)
[2018-09-10 06:00] VITALS: BP 147/70
[2018-09-10] MEDS: ONDANSETRON 4 MG TAB (S0181) PO PRN ×2 (06:28→16:31)
[2018-09-10] MEDS: PERCOCET 5MG/325MG TAB PO PRN ×2 (06:28→12:41)
[2018-09-10] MEDS ORDERED: NON-FORMULARY 1 EA EA PO SCH (09:00)
[2018-09-10] MEDS: MAGNESIUM OXIDE 400 MG TAB (MAG-OX) PO SCH (10:11)
[2018-09-10] MEDS: tiZANidine 4 MG TAB PO SCH ×3 (10:11→20:52)
[2018-09-10] MEDS: NITROFURANTOIN (MACROBID) 100 MG CAP PO SCH ×2 (10:11→20:51)
[2018-09-10] MEDS: PANTOPRAZOLE 40MG TAB (PROTONIX) PO SCH (10:12)
[2018-09-10] MEDS: VITAMIN D 1,000 INTERNATIONAL UNITS TABLET PO SCH (10:12)
[2018-09-10] MEDS: ACETAMINOPHEN 500 MG TAB PO SCH ×3 (10:13→20:51)
[2018-09-10] MEDS: GABAPENTIN 300 MG CAP PO SCH ×2 (10:13→20:52)
--- NOTE | 2018-09-10 12:57 | IPN ---
DATE: 09/10/2018 Asiya is seen on [facility], admitted by the hospitalist coverage yesterday with intractable back pain, has a history of bladder cancer. No lab work was ordered for today. She has intractable back pain, had an MRI scan done of the lumbosacral spine 15 days ago which showed degenerative disc disease and mild central canal stenosis at a few levels, some central disc protrusion at L5-S1 with minimal thecal sac compression and compression of L5 nerve. Admission history and physical raises questions about discitis. I do not see a sed rate or other marker of inflammation. PHYSICAL EXAMINATION: Afebrile. Vital signs stable. She is alert and conversant. She is in moderate pain. Lungs clear. Heart regular rhythm. Abdomen soft, nontender. Lower extremities have normal sensation and strength. Low back is tender to palpate. LABS: None ordered. PLAN: She has not had an MRI of the lumbosacral or thoracic spine yet. She has not had any inflammatory markers. I have ordered a sed rate and C-reactive protein. I have ordered daily labs. Follow-up based upon results of these.
[2018-09-10 14:00] VITALS: BP 115/60
[2018-09-10] MEDS: ROSUVASTATIN 10 MG TAB (CRESTOR) PO SCH (20:51)
[2018-09-10] MEDS: DOCUSATE SODIUM 100 MG CAP PO PRN (20:52)
[2018-09-10] MEDS: ATENOLOL 50 MG TAB PO SCH (20:52)
[2018-09-10 22:00] VITALS: BP 112/56
[2018-09-11] MEDS: PERCOCET 5MG/325MG TAB PO PRN ×2 (05:20→12:17)
[2018-09-11] MEDS: ONDANSETRON 4 MG TAB (S0181) PO PRN ×2 (05:20→18:52)
[2018-09-11 06:00] VITALS: BP 112/60
[2018-09-11 06:57] LABS: HEMATOCRIT 29.2 % (36.0-47.0); HEMOGLOBIN 9.5 g/dl (12.0-15.5); MEAN CORPUSCULAR HEMOGLOBIN 32.9 pg (27.0-33.0); MEAN CORPUSCULAR HGB CONC 32.5 g/dl (32.0-36.5); PLATELET COUNT, AUTOMATED 250 10^3/uL (150-450); RED BLOOD COUNT 2.89 10^6/uL (4.00-5.40); WHITE BLOOD COUNT 12.7 10^3/uL (4.0-10.0)
[2018-09-11 07:15] LABS: BLOOD UREA NITROGEN 30 MG/DL (7-18); CALCIUM LEVEL 8.3 MG/DL (8.8-10.2); CARBON DIOXIDE LEVEL 22 MEQ/L (21-32); CHLORIDE LEVEL 110 MEQ/L (98-107); CREATININE FOR GFR 0.73 MG/DL (0.55-1.30); GLOMERULAR FILTRATION RATE > 60.0 (>32); GLUCOSE, FASTING 76 MG/DL (70-100); POTASSIUM SERUM 3.8 MEQ/L (3.5-5.1); SODIUM LEVEL 139 MEQ/L (136-145)
[2018-09-11] MEDS: GABAPENTIN 300 MG CAP PO SCH ×2 (09:51→21:51)
[2018-09-11] MEDS: VITAMIN D 1,000 INTERNATIONAL UNITS TABLET PO SCH (09:51)
[2018-09-11] MEDS: PANTOPRAZOLE 40MG TAB (PROTONIX) PO SCH (09:51)
[2018-09-11] MEDS: NITROFURANTOIN (MACROBID) 100 MG CAP PO SCH ×2 (09:51→21:51)
[2018-09-11] MEDS: tiZANidine 4 MG TAB PO SCH ×3 (09:51→21:50)
[2018-09-11] MEDS: MAGNESIUM OXIDE 400 MG TAB (MAG-OX) PO SCH (09:51)
[2018-09-11] MEDS: ACETAMINOPHEN 500 MG TAB PO SCH ×3 (09:52→21:50)
--- NOTE | 2018-09-11 10:12 | REP ---
MRI THORACIC SPINE WITHOUT CONTRAST: HISTORY: Intractable back pain. Disc bulge. Lower extremity weakness. Comparison CT study of the lumbar spine and MR study of the lumbar spine August 26, 2018 and August 07, 2018. There is apparently a history of bladder malignancy. TECHNIQUE: Sagittal and axial T1- and T2-weighted scans are acquired in the usual fashion with and without fat saturation. Sequences include spin echo, turbo spin echo, and STIR imaging sequences. MRI FINDINGS: There is low T1 and high T2 signal intensity throughout the posterior three-quarters of the T11 vertebral body consistent with a bony destructive neoplastic lesion, primary versus metastatic. The lesion extends into both pedicles. There is pathologic collapse with approximately 40% loss of vertebral body height. There is retropulsion of the posterior cortex of the T11 vertebral body and there is epidural soft tissue along the ventral epidural space from the upper portion of T12 to the lower portion of T10. This results in moderate compression of the lower thoracic cord and dorsal displacement the cord. No abnormal cord signal intensity is seen. There is moderate central canal stenosis at this level as a result. There is old minimal anterior wedge compression deformity at the T9 vertebral body. Its signal intensity is normal and thus this is not felt to be a pathologic fracture. There are degenerative disc changes at T6-7 with a right posterior focal disc protrusion. This effaces the right ventral margin of the thoracic spinal cord. No overall cord compression. At T7-T8 there is a central focal disc protrusion which contacts the midline ventral margin of the cord without compression. No other thoracic disc herniation is seen. No other thoracic destructive lesion is seen. IMPRESSION: 1. Bony destructive lesion at T11 with pathologic fracture, retropulsion, ventral epidural disease, and moderate cord compression and central canal stenosis. Metastatic lesion is most likely. A primary bone lesion such as a plasmacytoma may have this appearance as well. 2. There is an old wedge compression deformity at the at T9 which is mild. 3. There are thoracic disc protrusions at T6-7 and T7-8 as above. Electronically Signed by Magdy De La Torre MD 09/11/2018 11:12 A
[2018-09-11] MEDS ORDERED: MIRALAX *UNIT DOSE* 17GM PACKET PO PRN (12:30)
--- NOTE | 2018-09-11 12:59 | IPN ---
DATE: 09/11/2018 Asiya's MRI scan unfortunately showed bony destructive lesions in T11 with pathologic fracture, retropulsion, ventral epidural disease and moderate cord compression with central canal stenosis. [facility] is aware of this as a text was sent by one of their providers to Dr. Mcgovern who forwarded it to me asking for a radiation oncology consultation. I am waiting for the orthopedic note. The patient's pain is under fair control. She had not had a bowel movement since being admitted. She has a history of constipation in the past. PHYSICAL EXAMINATION: 112/60, pulse 72, afebrile. General appearance: Elderly, frail. She is lying in bed. She has pain with any kind of movement, but seems comfortable at rest. Lungs clear. Heart regular rhythm. Abdomen soft, nontender, nondistended. Lower extremities have normal strength and sensation. Low back is tender to palpate. LABS: White count is 12.7, hemoglobin 9.5, platelets 250, sodium 139, potassium 3.8, BUN 30, creatinine 0.7, glucose 67, C-reactive protein yesterday was 10.7. ESR was 106. Blood cultures are negative. Urine grew out E. Coli, looks to be pansensitive. IMPRESSION: 1. Pathological fracture of T11. I have spoken with Dr. Guerrero and he will see the patient for consultation today. Orthopedics to see the patient. I called Dr. Holbrook who is the air intercept controller physician and he will speak with whoever saw the patient today and ask to have a note that I can review. 2. 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 I reviewed her oncology notes. She had a lung lesion biopsied. It is either a lung primary or more likely metastatic bladder cancer. The same process is probably involved with her spine. 3. E. coli UTI. She is on Macrodantin for this. I do not typically use this in somebody of advanced age, but here renal function is normal and she should respond to it. 4. Constipation. Bowel care has been ordered. 5. History of bladder cancer, metastatic. She is followed by [facility] oncology.
--- NOTE | 2018-09-11 16:32 | IPN ---
DATE: 09/11/2018 Asiya's oncologist is Dr. Whitehead, who is not available. Dr. Carrizales is system consultant today for medical oncology. I called him and we discussed the case. He does not feel that there is a need for medical oncology involvement during this acute hospitalization. I did want to make him aware of the turn of events so the patient's chart can be updated on their end.
--- NOTE | 2018-09-11 17:49 | IPN ---
DATE: 09/11/2018 HISTORY: Asiya just received the MRI of her thoracic spine. She continues have significant back pain. She continues to deny numbness or tingling or radicular symptoms. Denies stool incontinence. On exam, this is an elderly female in no distress. She is alert and oriented times three. NEUROLOGIC: Appropriate mood and affect. CARDIOVASCULAR: Posterior tibialis (PT) pulse 2+. PULMONARY: Nonlabored breathing. MUSCULOSKELETAL: Patient has 5/5 extensor hallucis longus (EHL), flexor hallucis longus (FHL), tibialis anterior (TA), gastrocsoleus (GS), , quadriceps, and hip flexion. Sensation light touch L2-S1 intact. MRI the thoracic spine report and images were available for my review. I agree with the radiologist there is a pathologic fracture of T11 with vertebral body collapse and retropulsion. There is moderate canal stenosis at T11 with soft tissue inflammation. Fracture does extend into the pedicles. ASSESSMENT AND PLAN: Asiay has lower thoracic pain due to a pathologic T11 fracture. This a 2-column fracture. Currently there are no neurologic deficits. I reviewed the MRI and the case with my partner, our spine surgeon, Dr. Cuadra. Recommendations are as follows. 1. A stat radiation oncology consultation to evaluate for prompt radiation treatment for both pain relief and treatment of the lesion. This recommendation was relayed directly to Dawn Hopper, our nurse practitioner, who will inform the hospitalist. The patient's nurse was also informed that if radiation oncology has not called or evaluated the patient by this afternoon, they are to be called again. It will be up to them to determine the appropriate timing of radiation therapy. I still want the evaluation to wait to outpatient basis. They can make alone determinations of what would be appropriate treatment. 2. The patient will need a brace. She will need a thoracic lumbar sacral orthosis (TLSO), and we have contacted Bryan Sapp to evaluation the patient. She will need a TLSO to stabilize this fracture. Likely she will not tolerate a rigid clamshell-type brace, but she does need something that provides significant support. 3. Currently the patient has no neurologic deficits. She was informed that if she develops any numbness or tingling or difficulty moving her feet or legs, she needs to inform nursing immediately. 4. Recommendations on the brace is that she does not need to use the brace in bed, but she is not allowed to get out of bed without the brace. She may apply the brace sitting up. She has not need to put the brace on lying flat. 5. I recommend repeat x-rays of the cervical lumbar spine, AP and lateral views after the patient has mobilized with physical therapy, and we would want those x-rays with her standing.
[2018-09-11] MEDS: dexameTHASONE 4 MG/ML 1ML VIAL (J1100) IV SCH ×2 (18:13→21:51)
[2018-09-11 18:19] VITALS: BP 125/60
[2018-09-11] MEDS: MORPHINE 4 MG/ML 1ML VIAL/SYRINGE (J2270) IV PRN (18:52)
[2018-09-11 20:00] VITALS: BP 83/45
[2018-09-11] MEDS: ATENOLOL 50 MG TAB PO SCH (21:00)
[2018-09-11] MEDS: ROSUVASTATIN 10 MG TAB (CRESTOR) PO SCH (21:50)
[2018-09-11] MEDS: KCL 20MEQ in NS 1000ML 1,000 ML IV SCH (21:52)
[2018-09-12] MEDS: dexameTHASONE 4 MG/ML 1ML VIAL (J1100) IV SCH ×4 (04:30→22:17)
[2018-09-12] MEDS: KCL 20MEQ in NS 1000ML 1,000 ML IV SCH ×4 (05:51→21:11)
[2018-09-12 06:00] VITALS: BP 145/71
[2018-09-12 06:53] LABS: HEMATOCRIT 28.5 % (36.0-47.0); HEMOGLOBIN 9.1 g/dl (12.0-15.5); MEAN CORPUSCULAR HEMOGLOBIN 33.3 pg (27.0-33.0); MEAN CORPUSCULAR HGB CONC 31.9 g/dl (32.0-36.5); MEAN CORPUSCULAR VOLUME 104.4 fl (80.0-96.0); PLATELET COUNT, AUTOMATED 240 10^3/uL (150-450); RED BLOOD COUNT 2.73 10^6/uL (4.00-5.40); WHITE BLOOD COUNT 6.6 10^3/uL (4.0-10.0)
[2018-09-12 07:24] LABS: BLOOD UREA NITROGEN 29 MG/DL (7-18); CALCIUM LEVEL 8.2 MG/DL (8.8-10.2); CARBON DIOXIDE LEVEL 19 MEQ/L (21-32); CHLORIDE LEVEL 113 MEQ/L (98-107); CREATININE FOR GFR 0.58 MG/DL (0.55-1.30); GLOMERULAR FILTRATION RATE > 60.0 (>32); GLUCOSE, FASTING 142 MG/DL (70-100); POTASSIUM SERUM 4.5 MEQ/L (3.5-5.1); SODIUM LEVEL 140 MEQ/L (136-145)
[2018-09-12] MEDS: SENOKOT S TAB PO PRN (08:32)
[2018-09-12] MEDS: PANTOPRAZOLE 40MG TAB (PROTONIX) PO SCH (08:32)
[2018-09-12] MEDS: VITAMIN D 1,000 INTERNATIONAL UNITS TABLET PO SCH (08:32)
[2018-09-12] MEDS: DOCUSATE SODIUM 100 MG CAP PO PRN ×2 (08:33→15:11)
[2018-09-12] MEDS: MAGNESIUM OXIDE 400 MG TAB (MAG-OX) PO SCH (08:33)
[2018-09-12] MEDS: NITROFURANTOIN (MACROBID) 100 MG CAP PO SCH ×2 (08:33→22:18)
[2018-09-12] MEDS: GABAPENTIN 300 MG CAP PO SCH ×2 (08:33→22:18)
[2018-09-12] MEDS: tiZANidine 4 MG TAB PO SCH ×4 (08:33→22:18)
[2018-09-12] MEDS: PERCOCET 5MG/325MG TAB PO PRN ×2 (08:34→16:51)
[2018-09-12] MEDS: ACETAMINOPHEN 500 MG TAB PO SCH ×3 (09:00→22:19)
--- NOTE | 2018-09-12 13:16 | IPN ---
DATE OF SERVICE: 09/12/2018 Asiya started radiation therapy yesterday. She had a lot of back pain afterwards, probably from being moved. She has had no change in lower extremity strength, sensation, and no change in bowel or bladder function. I did discuss her situation with the on-call oncologist yesterday, who was Dr. Carrizales. He did not feel there was a need to see the patient in hospital. PHYSICAL EXAMINATION: Vital signs stable. Lower extremity strength, reflexes, sensation normal. LABORATORIES: Complete blood count (CBC) unchanged. Electrolytes unremarkable. IMPRESSION: 1. Metastatic bladder cancer with pathological fracture of T11. Plan: She is getting radiation therapy from Dr. Guerrero. Started steroid therapy yesterday. Medical oncology is aware of the patient's hospitalization. 2. Escherichia (E.) coli urinary tract infection (UTI). She is on Macrodantin. PROGNOSIS: Is obviously poor in this situation. The short-term plan is to get her well enough to get her brace and home. Then, she can talk to her oncologist about whether it is feasible to continue treating her bladder cancer or whether palliative care would be a better option.
[2018-09-12 14:00] VITALS: BP 136/65
[2018-09-12] MEDS ORDERED: PILL CUTTER 1 EACH XX PRN (15:30)
[2018-09-12] MEDS: ONDANSETRON 4 MG TAB (S0181) PO PRN (19:04)
[2018-09-12 22:00] VITALS: BP 136/65
[2018-09-12] MEDS: ROSUVASTATIN 10 MG TAB (CRESTOR) PO SCH (22:18)
[2018-09-12] MEDS: ATENOLOL 50 MG TAB PO SCH (22:20)
[2018-09-13] MEDS: PERCOCET 5MG/325MG TAB PO PRN ×2 (00:44→09:51)
[2018-09-13] MEDS: KCL 20MEQ in NS 1000ML 1,000 ML IV SCH ×3 (04:38→21:04)
[2018-09-13] MEDS: dexameTHASONE 4 MG/ML 1ML VIAL (J1100) IV SCH ×4 (04:38→22:47)
[2018-09-13 06:00] VITALS: BP 93/51
[2018-09-13] MEDS: ONDANSETRON 4 MG TAB (S0181) PO PRN ×2 (06:13→22:22)
[2018-09-13 07:02] LABS: HEMATOCRIT 26.4 % (36.0-47.0); HEMOGLOBIN 8.5 g/dl (12.0-15.5); MEAN CORPUSCULAR HEMOGLOBIN 33.6 pg (27.0-33.0); MEAN CORPUSCULAR HGB CONC 32.2 g/dl (32.0-36.5); MEAN CORPUSCULAR VOLUME 104.3 fl (80.0-96.0); PLATELET COUNT, AUTOMATED 285 10^3/uL (150-450); RED BLOOD COUNT 2.53 10^6/uL (4.00-5.40); WHITE BLOOD COUNT 12.3 10^3/uL (4.0-10.0)
[2018-09-13 07:23] LABS: BLOOD UREA NITROGEN 20 MG/DL (7-18); CALCIUM LEVEL 7.7 MG/DL (8.8-10.2); CARBON DIOXIDE LEVEL 21 MEQ/L (21-32); CHLORIDE LEVEL 115 MEQ/L (98-107); GLOMERULAR FILTRATION RATE > 60.0 (>32); GLUCOSE, FASTING 142 MG/DL (70-100); POTASSIUM SERUM 4.7 MEQ/L (3.5-5.1); SODIUM LEVEL 143 MEQ/L (136-145)
[2018-09-13] MEDS: MAGNESIUM OXIDE 400 MG TAB (MAG-OX) PO SCH (09:50)
[2018-09-13] MEDS: ACETAMINOPHEN 500 MG TAB PO SCH ×3 (09:50→21:03)
[2018-09-13] MEDS: tiZANidine 4 MG TAB PO SCH ×3 (09:50→21:02)
[2018-09-13] MEDS: VITAMIN D 1,000 INTERNATIONAL UNITS TABLET PO SCH (09:50)
[2018-09-13] MEDS: GABAPENTIN 300 MG CAP PO SCH ×2 (09:50→21:01)
[2018-09-13] MEDS: PANTOPRAZOLE 40MG TAB (PROTONIX) PO SCH (09:51)
[2018-09-13] MEDS: NITROFURANTOIN (MACROBID) 100 MG CAP PO SCH ×2 (09:51→21:01)
[2018-09-13] MEDS: FLEET ENEMA PR PRN (12:19)
[2018-09-13 14:00] VITALS: BP 152/69
--- NOTE | 2018-09-13 20:13 | IPN ---
DATE: 09/13/2018 Asiya is [facility]. Having some back pain after returning from radiation therapy. She is still awaiting her back brace. No problems with holding bowel or urine and no weakness or numbness in the legs beyond her baseline. PHYSICAL EXAMINATION: Vital signs: As listed. HEENT: Unremarkable. LUNGS: Clear. HEART: Regular rhythm. ABDOMEN: Soft. She has not had a bowel movement yet since arriving here. EXTREMITIES: Lower extremities show normal strength bilaterally and unchanged sensation. IMPRESSION: Metastatic bladder cancer with metastases to bone and pathological fracture T11 receiving palliative radiation therapy and IV dexamethasone. PLAN: 1. Continue current treatment, awaiting back brace which probably will be getting here on Sunday. She cannot be out of bed until she gets the back brace. Orthopedics recommend TLSO brace to stabilize the fracture. Once it arrives, she can use this when she sits up or stands. She does not need to use it when she is lying in bed. She can apply the brace sitting up. After she is immobilized with physical therapy, cervical spine, lumbar spine, both AP and lateral are recommended per 09/11/2018 consultation note. 2. Hypolipidemia. Continue her atorvastatin. 3. E. coli urinary tract infection (UTI). She is still on Macrodantin for this. 4. Constipation. I have ordered some Fleets enemas. Bowel care has already been ordered. Concerned about how long this constipation has gone one. Need to check on this daily.
[2018-09-13] MEDS ORDERED: diphenhydrAMINE 25 MG CAP PO SCH (21:00)
[2018-09-13] MEDS ORDERED: ACETAMINOPHEN 325 MG TAB PO SCH (21:00)
[2018-09-13] MEDS: diphenhydrAMINE 50 MG CAP PO SCH (21:01)
[2018-09-13] MEDS: ROSUVASTATIN 10 MG TAB (CRESTOR) PO SCH (21:01)
[2018-09-13] MEDS: ATENOLOL 50 MG TAB PO SCH (21:02)
[2018-09-13 22:00] VITALS: BP 146/71
[2018-09-14] MEDS: PERCOCET 5MG/325MG TAB PO PRN ×3 (00:33→18:31)
[2018-09-14] MEDS: DOCUSATE SODIUM 100 MG CAP PO SCH ×2 (01:42→22:26)
[2018-09-14] MEDS: dexameTHASONE 4 MG/ML 1ML VIAL (J1100) IV SCH ×4 (03:18→22:27)
[2018-09-14] MEDS: KCL 20MEQ in NS 1000ML 1,000 ML IV SCH ×3 (05:37→21:54)
[2018-09-14 05:52] LABS: HEMATOCRIT 26.2 % (36.0-47.0); HEMOGLOBIN 8.4 g/dl (12.0-15.5); MEAN CORPUSCULAR HEMOGLOBIN 33.3 pg (27.0-33.0); MEAN CORPUSCULAR HGB CONC 32.1 g/dl (32.0-36.5); PLATELET COUNT, AUTOMATED 286 10^3/uL (150-450); RED BLOOD COUNT 2.52 10^6/uL (4.00-5.40); WHITE BLOOD COUNT 11.3 10^3/uL (4.0-10.0)
[2018-09-14 06:00] VITALS: BP 106/69
[2018-09-14 06:22] LABS: BLOOD UREA NITROGEN 18 MG/DL (7-18); CALCIUM LEVEL 7.8 MG/DL (8.8-10.2); CARBON DIOXIDE LEVEL 22 MEQ/L (21-32); CHLORIDE LEVEL 114 MEQ/L (98-107); CREATININE FOR GFR 0.53 MG/DL (0.55-1.30); GLOMERULAR FILTRATION RATE > 60.0 (>32); GLUCOSE, FASTING 134 MG/DL (70-100); POTASSIUM SERUM 4.6 MEQ/L (3.5-5.1); SODIUM LEVEL 143 MEQ/L (136-145)
[2018-09-14] MEDS: tiZANidine 4 MG TAB PO SCH ×3 (09:14→22:26)
[2018-09-14] MEDS: MAGNESIUM OXIDE 400 MG TAB (MAG-OX) PO SCH (09:15)
[2018-09-14] MEDS: NITROFURANTOIN (MACROBID) 100 MG CAP PO SCH (09:15)
[2018-09-14] MEDS: GABAPENTIN 300 MG CAP PO SCH ×2 (09:15→22:26)
[2018-09-14] MEDS: VITAMIN D 1,000 INTERNATIONAL UNITS TABLET PO SCH (09:15)
[2018-09-14] MEDS: PANTOPRAZOLE 40MG TAB (PROTONIX) PO SCH (09:15)
[2018-09-14] MEDS: ACETAMINOPHEN 500 MG TAB PO SCH ×3 (09:16→22:27)
[2018-09-14] MEDS: MIRALAX *UNIT DOSE* 17GM PACKET PO SCH (12:16)
[2018-09-14 14:00] VITALS: BP 166/77
--- NOTE | 2018-09-14 21:17 | IPNPDOC ---
Subjective Date Seen The patient was seen on 09/14/18. Subjective Chief Complaint/HPI She complains of persistent low back pain and abdominal pain as well. After a Fleet's enema yesterday, she had a very small BM, otherwise has not moved her bowels since admission. Pain is not as well controlled today; she hasn't had any morphine, as she doesn't like the way it makes her feel. Her back brace is not expected until Sunday. Constitutional: Denies: Chills, Fever Pulmonary: Denies: Dyspnea, Cough Cardiovascular: Denies: Chest Pain Gastrointestinal: Reports: Abdominal Pain, Constipation; Denies: Nausea, Vomiting Musculoskeletal: Reports: Back Pain Objective Physical Examination General Exam: Positive: Alert, Cooperative Chest Exam: Positive: Clear to auscultation, Normal air movement Heart Exam: Positive: Rate Normal, Tachycardic Abdomen Exam: Positive: Normal bowel sounds, Soft, Other (clear urine draining into bag); Negative: Tenderness Extremity Exam: Negative: Swelling Psych Exam: Positive: Mental status NL Assessment /Plan Problems (1) Pathologic fracture Status: Acute Problem Text: Pain uncontrolled today, and I increased her Percocet. Per ortho, needs to remain in bed until back brace is available. (2) Constipation due to opioid therapy Status: Acute Problem Text: Secondary to opioids and lack of activity. Looking at her records, she hasn't been taking much to help her move her bowels, as her orders have been mostly prn, and she hasn't asked for more than 1 medication most days. I made a couple of her medications scheduled instead of prn. (3) History of bladder cancer Status: Acute Plan/VTE VTE Prophylaxis Ordered?: Yes VS, I&O, 24H, Fishbone Vital Signs/I&O Vital Signs Date Time Temp Pulse Resp B/P (MAP) Pulse Ox O2 Delivery O2 Flow Rate FiO2 09/14/18 19:05 18 09/14/18 14:00 97.3 61 166/77 (106) 92 09/09/18 16:44 Room Air I&O- Last 24 Hours up to 6 AM 09/14/18 06:00 Intake Total 4060 ml Output Total 1032 ml Balance 3028 ml Laboratory Data 24H LABS Laboratory Tests 2 09/14/18 05:37: Nucleated Red Blood Cells % (auto) 0.0, Anion Gap 7L, Glomerular Filtration Rate > 60.0, Blood Urea Nitrogen 18, Creatinine 0.53L, Sodium Level 143, Potassium Level 4.6, Chloride Level 114H, Carbon Dioxide Level 22, Calcium Level 7.8L CBC/BMP Laboratory Tests 09/14/18 05:37 Red Blood Count 2.52 L, Mean Corpuscular Volume 104.0 H, Mean Corpuscular Hemoglobin 33.3 H, Mean Corpuscular Hemoglobin Concent 32.1, Red Cell Distribution Width 12.5, Calcium Level 7.8 L Microbiology Microbiology 09/09/18 Blood Culture - Final, Complete NO GROWTH AFTER 5 DAYS 09/09/18 Blood Culture - Final, Complete NO GROWTH AFTER 5 DAYS 09/09/18 Urine Culture - Final, Complete Escherichia Coli Enterococcus Faecalis GERMAIN KINGSTON DO Sep 14, 2018 21:17
[2018-09-14 22:00] VITALS: BP 162/80
[2018-09-14] MEDS: ROSUVASTATIN 10 MG TAB (CRESTOR) PO SCH (22:25)
[2018-09-14] MEDS: diphenhydrAMINE 50 MG CAP PO SCH (22:25)
[2018-09-14] MEDS: ATENOLOL 50 MG TAB PO SCH (22:27)
[2018-09-15] MEDS: PERCOCET 5MG/325MG TAB PO PRN ×4 (02:43→21:32)
[2018-09-15] MEDS: dexameTHASONE 4 MG/ML 1ML VIAL (J1100) IV SCH ×4 (03:42→21:36)
[2018-09-15] MEDS: KCL 20MEQ in NS 1000ML 1,000 ML IV SCH ×3 (05:09→21:36)
[2018-09-15] MEDS: MORPHINE 4 MG/ML 1ML VIAL/SYRINGE (J2270) IV PRN (05:52)
[2018-09-15 06:14] VITALS: BP 139/72
[2018-09-15 06:21] LABS: HEMATOCRIT 27.7 % (36.0-47.0); HEMOGLOBIN 9.1 g/dl (12.0-15.5); MEAN CORPUSCULAR HEMOGLOBIN 33.5 pg (27.0-33.0); MEAN CORPUSCULAR HGB CONC 32.9 g/dl (32.0-36.5); MEAN CORPUSCULAR VOLUME 101.8 fl (80.0-96.0); PLATELET COUNT, AUTOMATED 358 10^3/uL (150-450); RED BLOOD COUNT 2.72 10^6/uL (4.00-5.40); WHITE BLOOD COUNT 12.2 10^3/uL (4.0-10.0)
[2018-09-15 06:42] LABS: BLOOD UREA NITROGEN 14 MG/DL (7-18); CALCIUM LEVEL 7.7 MG/DL (8.8-10.2); CARBON DIOXIDE LEVEL 21 MEQ/L (21-32); CHLORIDE LEVEL 109 MEQ/L (98-107); CREATININE FOR GFR 0.62 MG/DL (0.55-1.30); GLOMERULAR FILTRATION RATE > 60.0 (>32); GLUCOSE, FASTING 127 MG/DL (70-100); POTASSIUM SERUM 4.5 MEQ/L (3.5-5.1); SODIUM LEVEL 138 MEQ/L (136-145)
[2018-09-15] MEDS: MIRALAX *UNIT DOSE* 17GM PACKET PO SCH (09:00)
[2018-09-15] MEDS: DOCUSATE SODIUM 100 MG CAP PO SCH ×2 (09:00→21:38)
[2018-09-15] MEDS: MAGNESIUM OXIDE 400 MG TAB (MAG-OX) PO SCH (09:14)
[2018-09-15] MEDS: PANTOPRAZOLE 40MG TAB (PROTONIX) PO SCH (09:14)
[2018-09-15] MEDS: tiZANidine 4 MG TAB PO SCH ×3 (09:15→21:34)
[2018-09-15] MEDS: GABAPENTIN 300 MG CAP PO SCH ×2 (09:15→21:32)
[2018-09-15] MEDS: ACETAMINOPHEN 500 MG TAB PO SCH ×3 (09:15→21:00)
[2018-09-15] MEDS: VITAMIN D 1,000 INTERNATIONAL UNITS TABLET PO SCH (09:15)
[2018-09-15] MEDS: FLEET ENEMA PR PRN (13:40)
[2018-09-15 14:00] VITALS: BP 142/62
--- NOTE | 2018-09-15 21:07 | IPNPDOC ---
Subjective Date Seen The patient was seen on 09/15/18. Subjective Chief Complaint/HPI She has persistent back pain, somewhat improved with increased dose of Percocet. Her back brace isn't expected in until tomorrow. She has persistent stomach discomfort as well, and though some of her bowel care is now scheduled instead of prn, she refused it, as it gave her crampy stomach discomfort, and she isn't comfortable on a bedpan. Later today she accepted a Fleet's enema and had a BM, described as "small." General: Denies: Normal Appetite Constitutional: Denies: Chills, Fever Pulmonary: Denies: Dyspnea, Cough Cardiovascular: Denies: Chest Pain Gastrointestinal: Reports: Abdominal Pain, Constipation; Denies: Nausea, Vomiting, Diarrhea Musculoskeletal: Reports: Back Pain Objective Physical Examination General Exam: Positive: Alert, Cooperative Chest Exam: Positive: Clear to auscultation, Normal air movement Heart Exam: Positive: Rate Normal, Tachycardic Abdomen Exam: Positive: Normal bowel sounds, Soft, Other (clear urine draining into bag); Negative: Tenderness Extremity Exam: Negative: Swelling Psych Exam: Positive: Mental status NL Assessment /Plan Problems (1) Pathologic fracture Status: Acute Problem Text: 09/15 -- She has persistent back pain, though improved somewhat with increased dose of Percocet. Back brace still pending. Pain uncontrolled today, and I increased her Percocet. Per ortho, needs to remain in bed until back brace is available. (2) Constipation due to opioid therapy Status: Acute Problem Text: 09/15 -- She is still not taking much for a bowel regimen, refusing her scheduled meds, since they gave her abdominal discomfort. Discussed with her and her family that stomach discomfort would persist and likely worsen until she started moving her bowels. Secondary to opioids and lack of activity. Looking at her records, she hasn't been taking much to help her move her bowels, as her orders have been mostly prn, and she hasn't asked for more than 1 medication most days. I made a couple of her medications scheduled instead of prn. (3) History of bladder cancer Status: Acute Plan/VTE VTE Prophylaxis Ordered?: Yes VS, I&O, 24H, Fishbone Vital Signs/I&O Vital Signs Date Time Temp Pulse Resp B/P (MAP) Pulse Ox O2 Delivery O2 Flow Rate FiO2 09/15/18 15:41 18 09/15/18 14:00 98.1 70 142/62 (88) 95 09/09/18 16:44 Room Air I&O- Last 24 Hours up to 6 AM 09/15/18 06:00 Intake Total 4690 ml Output Total 3100 ml Balance 1590 ml Laboratory Data 24H LABS Laboratory Tests 2 09/15/18 05:43: Nucleated Red Blood Cells % (auto) 0.2H, Anion Gap 8, Glomerular Filtration Rate > 60.0, Blood Urea Nitrogen 14, Creatinine 0.62, Sodium Level 138, Potassium Level 4.5, Chloride Level 109H, Carbon Dioxide Level 21, Calcium Level 7.7L CBC/BMP Laboratory Tests 09/15/18 05:43 Red Blood Count 2.72 L, Mean Corpuscular Volume 101.8 H, Mean Corpuscular Hemoglobin 33.5 H, Mean Corpuscular Hemoglobin Concent 32.9, Red Cell Distribution Width 12.3, Calcium Level 7.7 L Microbiology Microbiology 09/09/18 Blood Culture - Final, Complete NO GROWTH AFTER 5 DAYS 09/09/18 Blood Culture - Final, Complete NO GROWTH AFTER 5 DAYS 09/09/18 Urine Culture - Final, Complete Escherichia Coli Enterococcus Faecalis GERMAIN KINGSTON DO Sep 15, 2018 21:07
[2018-09-15] MEDS: diphenhydrAMINE 50 MG CAP PO SCH (21:32)
[2018-09-15] MEDS: ROSUVASTATIN 10 MG TAB (CRESTOR) PO SCH (21:34)
[2018-09-15] MEDS: ATENOLOL 50 MG TAB PO SCH (21:35)
[2018-09-15 22:00] VITALS: BP 157/80
[2018-09-16] MEDS: MORPHINE 4 MG/ML 1ML VIAL/SYRINGE (J2270) IV PRN (03:01)
[2018-09-16] MEDS: dexameTHASONE 4 MG/ML 1ML VIAL (J1100) IV SCH ×4 (03:52→22:18)
[2018-09-16] MEDS: KCL 20MEQ in NS 1000ML 1,000 ML IV SCH (05:52)
[2018-09-16] MEDS: SENOKOT S TAB PO PRN (05:58)
[2018-09-16 06:00] VITALS: BP 165/79
[2018-09-16] MEDS: PERCOCET 5MG/325MG TAB PO PRN ×4 (06:00→22:17)
[2018-09-16] MEDS: MIRALAX *UNIT DOSE* 17GM PACKET PO SCH (06:00)
[2018-09-16] MEDS: FLEET ENEMA PR PRN (06:08)
[2018-09-16] MEDS: ONDANSETRON 4 MG TAB (S0181) PO PRN (06:10)
[2018-09-16 06:44] LABS: HEMATOCRIT 27.8 % (36.0-47.0); HEMOGLOBIN 9.2 g/dl (12.0-15.5); MEAN CORPUSCULAR HEMOGLOBIN 32.5 pg (27.0-33.0); MEAN CORPUSCULAR HGB CONC 33.1 g/dl (32.0-36.5); MEAN CORPUSCULAR VOLUME 98.2 fl (80.0-96.0); PLATELET COUNT, AUTOMATED 387 10^3/uL (150-450); RED BLOOD COUNT 2.83 10^6/uL (4.00-5.40); WHITE BLOOD COUNT 13.4 10^3/uL (4.0-10.0)
[2018-09-16 07:06] LABS: BLOOD UREA NITROGEN 11 MG/DL (7-18); CALCIUM LEVEL 7.9 MG/DL (8.8-10.2); CARBON DIOXIDE LEVEL 22 MEQ/L (21-32); CHLORIDE LEVEL 109 MEQ/L (98-107); CREATININE FOR GFR 0.52 MG/DL (0.55-1.30); GLOMERULAR FILTRATION RATE > 60.0 (>32); GLUCOSE, FASTING 153 MG/DL (70-100); POTASSIUM SERUM 4.2 MEQ/L (3.5-5.1); SODIUM LEVEL 138 MEQ/L (136-145)
--- NOTE | 2018-09-16 07:48 | IPNPDOC ---
Subjective Date Seen The patient was seen on 09/16/18. Subjective Chief Complaint/HPI intractable back pain Events since last encounter Continues to have significant back pain. States pain medication is helping to dull pain. Continues with constipation and bloating. Small BM yesterday. received an enema and bowel meds this am. Drinking well. poor appetite per patient report. Constitutional: Denies: Chills, Fever, Night Sweats Pulmonary: Denies: Dyspnea, Cough Cardiovascular: Denies: Chest Pain, Palpitations, Orthopnea, Paroxysmal Noc. Dyspnea, Lt Headedness Gastrointestinal: Reports: Abdominal Pain, Constipation; Denies: Nausea, Vomiting Genitourinary: Reports: Other Symptoms (urostomy) Musculoskeletal: Reports: Back Pain Objective Physical Examination General Exam: Positive: Alert, Cooperative Chest Exam: Positive: Clear to auscultation, Normal air movement Heart Exam: Positive: Rate Normal, Tachycardic Abdomen Exam: Positive: Normal bowel sounds, Soft (mildly distended), Other (urostomy intact: clear urine draining into bag); Negative: Tenderness Extremity Exam: Negative: Swelling Psych Exam: Positive: Mental status NL, Oriented x 3 Assessment /Plan Problems (1) Pathologic fracture Status: Acute Problem Text: 09/16/18: planned TLSO brace. Will need imaging once brace is on. Per Ortho: repeat x-rays of the cervical lumbar spine, AP and lateral views after the patient has mobilized with physical therapy, and we would want those x-rays with her standing. 09/15 -- She has persistent back pain, though improved somewhat with increased dose of Percocet. Back brace still pending. Pain uncontrolled today, and I increased her Percocet. Per ortho, needs to remain in bed until back brace is available. (2) Constipation due to opioid therapy Status: Acute Problem Text: 09/16/18: Scheduled bowel meds, patient is compliant. Should improve once she mobilizes with brace. Consider Movantik if constipation persists. 09/15 -- She is still not taking much for a bowel regimen, refusing her scheduled meds, since they gave her abdominal discomfort. Discussed with her and her family that stomach discomfort would persist and likely worsen until she started moving her bowels. Secondary to opioids and lack of activity. Looking at her records, she hasn't been taking much to help her move her bowels, as her orders have been mostly prn, and she hasn't asked for more than 1 medication most days. I made a couple of her medications scheduled instead of prn. (3) History of bladder cancer Status: Acute Plan/VTE VTE Prophylaxis Ordered?: Yes VS, I&O, 24H, Fishbone Vital Signs/I&O Vital Signs Date Time Temp Pulse Resp B/P (MAP) Pulse Ox O2 Delivery O2 Flow Rate FiO2 09/16/18 06:30 16 09/16/18 06:00 97.5 69 165/79 (107) 93 I&O- Last 24 Hours up to 6 AM 09/16/18 06:00 Intake Total 1800 ml Output Total 2775 ml Balance -975 ml Laboratory Data 24H LABS Laboratory Tests 2 09/16/18 06:25: Nucleated Red Blood Cells % (auto) 0.3H, Anion Gap 7L, Glomerular Filtration Rate > 60.0, Blood Urea Nitrogen 11, Creatinine 0.52L, Sodium Level 138, Potassium Level 4.2, Chloride Level 109H, Carbon Dioxide Level 22, Calcium Level 7.9L CBC/BMP Laboratory Tests 09/16/18 06:25 Red Blood Count 2.83 L, Mean Corpuscular Volume 98.2 H, Mean Corpuscular Hemoglobin 32.5, Mean Corpuscular Hemoglobin Concent 33.1, Red Cell Distribution Width 12.0, Calcium Level 7.9 L Microbiology Microbiology 09/09/18 Blood Culture - Final, Complete NO GROWTH AFTER 5 DAYS 09/09/18 Blood Culture - Final, Complete NO GROWTH AFTER 5 DAYS 09/09/18 Urine Culture - Final, Complete Escherichia Coli Enterococcus Faecalis Lissette Navarro [facility] Sep 16, 2018 07:48
[2018-09-16] MEDS: PANTOPRAZOLE 40MG TAB (PROTONIX) PO SCH (09:31)
[2018-09-16] MEDS: GABAPENTIN 300 MG CAP PO SCH ×2 (09:31→21:07)
[2018-09-16] MEDS: MAGNESIUM OXIDE 400 MG TAB (MAG-OX) PO SCH (09:31)
[2018-09-16] MEDS: ACETAMINOPHEN 500 MG TAB PO SCH ×2 (09:31→13:58)
[2018-09-16] MEDS: tiZANidine 4 MG TAB PO SCH ×3 (09:32→21:06)
[2018-09-16] MEDS: DOCUSATE SODIUM 100 MG CAP PO SCH ×2 (09:32→21:06)
[2018-09-16] MEDS: VITAMIN D 1,000 INTERNATIONAL UNITS TABLET PO SCH (09:32)
[2018-09-16] MEDS ORDERED: PERCOCET 5MG/325MG TAB PO PRN (13:15)
[2018-09-16 14:00] VITALS: BP 177/77
[2018-09-16] MEDS: ROSUVASTATIN 10 MG TAB (CRESTOR) PO SCH (21:06)
[2018-09-16] MEDS: diphenhydrAMINE 50 MG CAP PO SCH (21:07)
[2018-09-16] MEDS: ATENOLOL 50 MG TAB PO SCH (21:07)
[2018-09-16 22:00] VITALS: BP 170/72
[2018-09-17] MEDS: dexameTHASONE 4 MG/ML 1ML VIAL (J1100) IV SCH ×4 (03:45→21:43)
[2018-09-17] MEDS: PERCOCET 5MG/325MG TAB PO PRN ×6 (03:45→21:43)
[2018-09-17 06:00] VITALS: BP 182/70
[2018-09-17 06:27] LABS: HEMATOCRIT 27.1 % (36.0-47.0); HEMOGLOBIN 9.1 g/dl (12.0-15.5); MEAN CORPUSCULAR HEMOGLOBIN 33.7 pg (27.0-33.0); MEAN CORPUSCULAR HGB CONC 33.6 g/dl (32.0-36.5); MEAN CORPUSCULAR VOLUME 100.4 fl (80.0-96.0); PLATELET COUNT, AUTOMATED 332 10^3/uL (150-450); WHITE BLOOD COUNT 12.9 10^3/uL (4.0-10.0)
[2018-09-17 06:54] LABS: BLOOD UREA NITROGEN 12 MG/DL (7-18); CALCIUM LEVEL 8.4 MG/DL (8.8-10.2); CARBON DIOXIDE LEVEL 25 MEQ/L (21-32); CHLORIDE LEVEL 104 MEQ/L (98-107); CREATININE FOR GFR 0.56 MG/DL (0.55-1.30); GLOMERULAR FILTRATION RATE > 60.0 (>32); GLUCOSE, FASTING 117 MG/DL (70-100); POTASSIUM SERUM 3.9 MEQ/L (3.5-5.1); SODIUM LEVEL 137 MEQ/L (136-145)
[2018-09-17] MEDS: MIRALAX *UNIT DOSE* 17GM PACKET PO SCH ×2 (07:54→09:00)
[2018-09-17] MEDS: MAGNESIUM OXIDE 400 MG TAB (MAG-OX) PO SCH (07:58)
[2018-09-17] MEDS: VITAMIN D 1,000 INTERNATIONAL UNITS TABLET PO SCH (07:58)
[2018-09-17] MEDS: tiZANidine 4 MG TAB PO SCH ×3 (07:59→20:32)
[2018-09-17] MEDS: PANTOPRAZOLE 40MG TAB (PROTONIX) PO SCH (07:59)
[2018-09-17] MEDS: DOCUSATE SODIUM 100 MG CAP PO SCH ×2 (08:00→20:31)
[2018-09-17] MEDS: SENOKOT S TAB PO PRN (08:00)
[2018-09-17] MEDS: GABAPENTIN 300 MG CAP PO SCH ×2 (08:01→20:32)
[2018-09-17 08:18] VITALS: BP 182/70
[2018-09-17] MEDS: LIDOCAINE 5% OINT 30 GM TOP PRN ×3 (11:24→21:42)
--- NOTE | 2018-09-17 12:05 | IPNPDOC ---
Subjective Date Seen The patient was seen on 09/17/18. Subjective Chief Complaint/HPI She is having significant pain now after wearing brace for a while this am. Constitutional: Denies: Chills, Fever Pulmonary: Denies: Dyspnea, Cough Cardiovascular: Denies: Chest Pain, Palpitations Gastrointestinal: Reports: Constipation; Denies: Nausea, Vomiting, Abdominal Pain, Diarrhea Objective Physical Examination General Exam: Positive: Alert, Cooperative, Moderate Distress (laying in bed - appears uncomforable) Chest Exam: Positive: Clear to auscultation, Normal air movement, Diminished Heart Exam: Positive: Rate Normal, Tachycardic Abdomen Exam: Positive: Normal bowel sounds, Soft (mildly distended), Other (urostomy intact: clear urine draining into bag); Negative: Tenderness Extremity Exam: Negative: Edema, Swelling Psych Exam: Positive: Mental status NL, Oriented x 3 Assessment /Plan Problems (1) Pathologic fracture Status: Acute Problem Text: 09/17 - TLSO brace obtained - Did not tolerate being upright for very long despite brace Has RT scheduled later today Cont Percocet Add Fleets for bowel care per patient request 09/16/18: planned TLSO brace. Will need imaging once brace is on. Per Ortho: repeat x-rays of the cervical lumbar spine, AP and lateral views after the patient has mobilized with physical therapy, and we would want those x-rays with her standing. 09/15 -- She has persistent back pain, though improved somewhat with increased dose of Percocet. Back brace still pending. Pain uncontrolled today, and I increased her Percocet. Per ortho, needs to remain in bed until back brace is available. (2) Constipation due to opioid therapy Status: Acute Problem Text: 09/16/18: Scheduled bowel meds, patient is compliant. Should improve once she mobilizes with brace. Consider Movantik if constipation persists. 09/15 -- She is still not taking much for a bowel regimen, refusing her scheduled meds, since they gave her abdominal discomfort. Discussed with her and her family that stomach discomfort would persist and likely worsen until she started moving her bowels. Secondary to opioids and lack of activity. Looking at her records, she hasn't been taking much to help her move her bowels, as her orders have been mostly prn, and she hasn't asked for more than 1 medication most days. I made a couple of her medications scheduled instead of prn. (3) History of bladder cancer Status: Acute (4) HTN (hypertension) Problem Text: irbesartan added today for high BP Plan/VTE VTE Prophylaxis Ordered?: Yes VS, I&O, 24H, Fishbone Vital Signs/I&O Vital Signs Date Time Temp Pulse Resp B/P (MAP) Pulse Ox O2 Delivery O2 Flow Rate FiO2 09/17/18 08:28 16 09/17/18 08:18 70 182/70 09/17/18 06:00 96.3 96 I&O- Last 24 Hours up to 6 AM 09/17/18 06:00 Intake Total 1890 ml Output Total 2450 ml Balance -560 ml Laboratory Data 24H LABS Laboratory Tests 2 09/17/18 05:34: Nucleated Red Blood Cells % (auto) 0.2H, Anion Gap 8, Glomerular Filtration Rate > 60.0, Blood Urea Nitrogen 12, Creatinine 0.56, Sodium Level 137, Potassium Level 3.9, Chloride Level 104, Carbon Dioxide Level 25, Calcium Level 8.4L CBC/BMP Laboratory Tests 09/17/18 05:34 Red Blood Count 2.70 L, Mean Corpuscular Volume 100.4 H, Mean Corpuscular Hemoglobin 33.7 H, Mean Corpuscular Hemoglobin Concent 33.6, Red Cell Distribution Width 12.0, Calcium Level 8.4 L Microbiology Microbiology 09/09/18 Blood Culture - Final, Complete NO GROWTH AFTER 5 DAYS 09/09/18 Blood Culture - Final, Complete NO GROWTH AFTER 5 DAYS 09/09/18 Urine Culture - Final, Complete Escherichia Coli Enterococcus Faecalis JOE COMER PA-C Sep 17, 2018 12:05 Johnie Coker MD Sep 17, 2018 12:25
[2018-09-17] MEDS: IRBESARTAN 150 MG TAB PO SCH (13:57)
[2018-09-17] MEDS: NITROFURANTOIN (MACROBID) 100 MG CAP PO SCH ×2 (13:58→20:31)
[2018-09-17 14:00] VITALS: BP 165/80
[2018-09-17] MEDS: FLEET ENEMA PR PRN (16:28)
[2018-09-17] MEDS: diphenhydrAMINE 50 MG CAP PO SCH (20:32)
[2018-09-17] MEDS: ROSUVASTATIN 10 MG TAB (CRESTOR) PO SCH (20:32)
[2018-09-17] MEDS: ATENOLOL 50 MG TAB PO SCH (20:32)
[2018-09-17 22:00] VITALS: BP 180/82
[2018-09-18] MEDS: PERCOCET 5MG/325MG TAB PO PRN ×2 (03:26→07:54)
[2018-09-18] MEDS: dexameTHASONE 4 MG/ML 1ML VIAL (J1100) IV SCH ×4 (03:26→21:47)
[2018-09-18 06:00] VITALS: BP 178/90
--- NOTE | 2018-09-18 07:41 | IPNPDOC ---
Subjective Date Seen The patient was seen on 09/18/18. Subjective Chief Complaint/HPI Intractable back pain Events since last encounter Continues with significant pain. States some relief with oxycodone, but pain becomes so severe she has trouble eating and is nauseated. tolerated PT poorly yesterday. + BMs with bowel meds. General: Denies: Fatigue, Normal Appetite Pulmonary: Denies: Dyspnea, Cough Cardiovascular: Denies: Chest Pain, Palpitations, Orthopnea, Paroxysmal Noc. Dyspnea, Lt Headedness Gastrointestinal: Reports: Nausea, Abdominal Pain (bloating, gas pain), Constipation; Denies: Vomiting Genitourinary: Reports: Other Symptoms (malodorous urine: culture pending); Denies: Dysuria, Frequency, Incontinence, Retention Psych: Reports: Anxiety Objective Physical Examination General Exam: Positive: Alert, Cooperative, Moderate Distress (laying in bed - appears uncomforable) Chest Exam: Positive: Clear to auscultation, Normal air movement, Diminished Heart Exam: Positive: Rate Normal, Tachycardic Abdomen Exam: Positive: Normal bowel sounds, Soft (mildly distended), Other (urostomy intact: clear urine draining into bag); Negative: Tenderness Extremity Exam: Negative: Edema, Swelling Psych Exam: Positive: Mental status NL, Oriented x 3 Assessment /Plan Problems (1) Pathologic fracture Status: Acute Problem Text: 09/18/18: POorly tolerating TLSO brace and PT. Will consult pain management today. Added on Simethicone for gas/bloating discomfort. Continue with RT. 09/17 - TLSO brace obtained - Did not tolerate being upright for very long despite brace Has RT scheduled later today Cont Percocet Add Fleets for bowel care per patient request 09/16/18: planned TLSO brace. Will need imaging once brace is on. Per Ortho: repeat x-rays of the cervical lumbar spine, AP and lateral views after the patient has mobilized with physical therapy, and we would want those x-rays with her standing. 09/15 -- She has persistent back pain, though improved somewhat with increased dose of Percocet. Back brace still pending. Pain uncontrolled today, and I increased her Percocet. Per ortho, needs to remain in bed until back brace is available. (2) Constipation due to opioid therapy Status: Acute Problem Text: 09/18/18: encouraged to continue with stool softeners and to get OOB for bowel motility. 09/16/18: Scheduled bowel meds, patient is compliant. Should improve once she mobilizes with brace. Consider Movantik if constipation persists. 09/15 -- She is still not taking much for a bowel regimen, refusing her scheduled meds, since they gave her abdominal discomfort. Discussed with her and her family that stomach discomfort would persist and likely worsen until she started moving her bowels. Secondary to opioids and lack of activity. Looking at her records, she hasn't been taking much to help her move her bowels, as her orders have been mostly prn, and she hasn't asked for more than 1 medication most days. I made a couple of her medications scheduled instead of prn. (3) History of bladder cancer Status: Acute (4) HTN (hypertension) Problem Text: 09/18/18: Most likely related to pain. irbesartan added today for high BP Plan/VTE VTE Prophylaxis Ordered?: Yes VS, I&O, 24H, Fishbone Vital Signs/I&O Vital Signs Date Time Temp Pulse Resp B/P (MAP) Pulse Ox O2 Delivery O2 Flow Rate FiO2 09/18/18 06:00 96.6 70 18 178/90 (119) 93 I&O- Last 24 Hours up to 6 AM 09/18/18 06:00 Intake Total 900 ml Output Total 1350 ml Balance -450 ml Laboratory Data Microbiology Microbiology 09/09/18 Blood Culture - Final, Complete NO GROWTH AFTER 5 DAYS 09/09/18 Blood Culture - Final, Complete NO GROWTH AFTER 5 DAYS 09/17/18 Urine Culture, Received Pending 09/09/18 Urine Culture - Final, Complete Escherichia Coli Enterococcus Faecalis Lissette Navarro [employer] Sep 18, 2018 07:41
[2018-09-18] MEDS: MIRALAX *UNIT DOSE* 17GM PACKET PO SCH (07:47)
[2018-09-18] MEDS: DOCUSATE SODIUM 100 MG CAP PO SCH ×2 (07:47→21:49)
[2018-09-18] MEDS: PANTOPRAZOLE 40MG TAB (PROTONIX) PO SCH (07:53)
[2018-09-18] MEDS: VITAMIN D 1,000 INTERNATIONAL UNITS TABLET PO SCH (07:53)
[2018-09-18] MEDS: NITROFURANTOIN (MACROBID) 100 MG CAP PO SCH ×2 (07:54→21:49)
[2018-09-18] MEDS: MAGNESIUM OXIDE 400 MG TAB (MAG-OX) PO SCH (07:54)
[2018-09-18] MEDS: SIMETHICONE 80 MG CHEW TAB PO PRN (07:54)
[2018-09-18] MEDS: tiZANidine 4 MG TAB PO SCH ×3 (07:54→21:49)
[2018-09-18] MEDS: GABAPENTIN 300 MG CAP PO SCH ×2 (07:54→21:48)
[2018-09-18] MEDS: IRBESARTAN 150 MG TAB PO SCH (07:55)
[2018-09-18] MEDS: CelecoXIB (CeleBREX) 100 MG CAP PO SCH ×2 (09:53→21:48)
[2018-09-18] MEDS: MORPHINE 30 MG TAB **MSIR PO SCH ×4 (10:45→21:48)
[2018-09-18 10:51] LABS: HEMATOCRIT 30.4 % (36.0-47.0); MEAN CORPUSCULAR HGB CONC 32.9 g/dl (32.0-36.5); MEAN CORPUSCULAR VOLUME 100.3 fl (80.0-96.0); PLATELET COUNT, AUTOMATED 373 10^3/uL (150-450); RED BLOOD COUNT 3.03 10^6/uL (4.00-5.40); WHITE BLOOD COUNT 13.7 10^3/uL (4.0-10.0)
[2018-09-18 11:14] LABS: BLOOD UREA NITROGEN 14 MG/DL (7-18); CALCIUM LEVEL 8.6 MG/DL (8.8-10.2); CARBON DIOXIDE LEVEL 29 MEQ/L (21-32); CHLORIDE LEVEL 99 MEQ/L (98-107); CREATININE FOR GFR 0.59 MG/DL (0.55-1.30); GLOMERULAR FILTRATION RATE > 60.0 (>32); GLUCOSE, FASTING 162 MG/DL (70-100); POTASSIUM SERUM 3.6 MEQ/L (3.5-5.1); SODIUM LEVEL 135 MEQ/L (136-145)
[2018-09-18] MEDS ORDERED: IRBESARTAN 150 MG TAB PO ONE (13:00)
[2018-09-18 16:00] VITALS: BP 170/80
--- NOTE | 2018-09-18 16:44 | CR ---
DATE OF CONSULTATION: 09/18/2018 REASON FOR CONSULTATION: Pain management. HISTORY OF PRESENT ILLNESS: 82-year-old female with a history significant for chronic back pain and recent diagnosis of bladder cancer with mets. For the past few weeks she has been experiencing worsening low back pain that she states is worse when she sits. The pain has caused difficulty with ambulation. PAST MEDICAL HISTORY: Significant for bladder CA with mets. Bulging disc L5 nerve compression. PAST SURGICAL HISTORY: Significant for laminectomy, robotic-assisted radical cystectomy, hysterectomy. MEDICATIONS: She is currently on: - acetaminophen 500 mg, 1000 mg by mouth three times a day - amiloride/hydrochlorothiazide 5/50 mg tablets, one each daily - atenolol 50 mg at bedtime - Tecentriq - Nexium 40 mg by mouth daily - gabapentin 300 mg twice daily - magnesium 400 mg daily - Ramipril 5 mg twice daily - rosuvastatin 20 mg at bedtime - vitamin D 1000 units daily - as needed docusate sodium - lidocaine patch - ondansetron - Percocet - polyethylene glycol - tizanidine ALLERGIES: SULFA REVIEW OF SYSTEMS: Back pain that radiates up and down her spine. PHYSICAL EXAMINATION: She is alert and oriented with a pleasant affect. The lung sounds are clear. Heart rate is regular. Limited physical exam related to patient comfort. PLAN: MARYLU Stokes consulted with Sue Navarro NP regarding this patient and recommended MS-IR 7.5 mg four times a day. Upon exam of the patient she admits the medication is working well, but that she is concerned over potential breakthrough pain at night. Discussed potential for breakthrough pain with the nurse and recommended offering as needed oxycodone at 01:00 this morning Thank you for allowing us to participate in the care of you patient. Should you have any questions or concerns, please feel free to call us at the [facility]. Respectfully, MARYLU Zambrano
[2018-09-18] MEDS: oxyCODONE 5MG TAB PO PRN ×2 (18:02→23:27)
[2018-09-18] MEDS: diphenhydrAMINE 50 MG CAP PO SCH (21:48)
[2018-09-18] MEDS: ROSUVASTATIN 10 MG TAB (CRESTOR) PO SCH (21:49)
[2018-09-18] MEDS: ATENOLOL 50 MG TAB PO SCH (21:50)
[2018-09-18 22:00] VITALS: BP 142/70
[2018-09-18] MEDS: LIDOCAINE 5% OINT 30 GM TOP PRN (22:04)
[2018-09-19] MEDS: dexameTHASONE 4 MG/ML 1ML VIAL (J1100) IV SCH ×4 (04:48→21:31)
[2018-09-19] MEDS: oxyCODONE 5MG TAB PO PRN ×2 (04:49→10:08)
[2018-09-19 06:00] VITALS: BP 165/68
[2018-09-19 06:23] LABS: BASO % 0.1 % (0.0-1.0); EOS % 0.1 % (0.0-3.0); HEMATOCRIT 29.7 % (36.0-47.0); HEMOGLOBIN 9.7 g/dl (12.0-15.5); LYMPH # 0.3 10^3/uL (1.5-4.5); LYMPH % 2.6 % (24.0-44.0); MEAN CORPUSCULAR HEMOGLOBIN 32.3 pg (27.0-33.0); MEAN CORPUSCULAR HGB CONC 32.7 g/dl (32.0-36.5); MONO # 0.7 10^3/uL (0.0-0.8); MONO % 6.4 % (0.0-5.0); NEUTROPHILS % 89.1 % (36.0-66.0); PLATELET COUNT, AUTOMATED 361 10^3/uL (150-450); WHITE BLOOD COUNT 11.2 10^3/uL (4.0-10.0)
[2018-09-19 06:50] LABS: BLOOD UREA NITROGEN 17 MG/DL (7-18); CARBON DIOXIDE LEVEL 28 MEQ/L (21-32); CHLORIDE LEVEL 101 MEQ/L (98-107); CREATININE FOR GFR 0.48 MG/DL (0.55-1.30); GLOMERULAR FILTRATION RATE > 60.0 (>32); GLUCOSE, FASTING 116 MG/DL (70-100); POTASSIUM SERUM 4.1 MEQ/L (3.5-5.1); SODIUM LEVEL 135 MEQ/L (136-145)
[2018-09-19] MEDS: CelecoXIB (CeleBREX) 100 MG CAP PO SCH ×2 (08:10→21:29)
[2018-09-19] MEDS: MIRALAX *UNIT DOSE* 17GM PACKET PO SCH ×2 (08:10→09:00)
[2018-09-19] MEDS: PANTOPRAZOLE 40MG TAB (PROTONIX) PO SCH (08:10)
[2018-09-19] MEDS: MAGNESIUM OXIDE 400 MG TAB (MAG-OX) PO SCH (08:10)
[2018-09-19] MEDS: DOCUSATE SODIUM 100 MG CAP PO SCH ×2 (08:10→21:31)
[2018-09-19] MEDS: VITAMIN D 1,000 INTERNATIONAL UNITS TABLET PO SCH (08:10)
[2018-09-19] MEDS: MORPHINE 30 MG TAB **MSIR PO SCH ×4 (08:12→21:29)
[2018-09-19] MEDS: tiZANidine 4 MG TAB PO SCH ×3 (08:12→21:31)
[2018-09-19] MEDS: NITROFURANTOIN (MACROBID) 100 MG CAP PO SCH ×2 (08:13→21:31)
[2018-09-19] MEDS: GABAPENTIN 300 MG CAP PO SCH ×2 (08:13→21:29)
[2018-09-19] MEDS: IRBESARTAN 150 MG TAB PO SCH (10:07)
--- NOTE | 2018-09-19 11:14 | IPNPDOC ---
Subjective Date Seen The patient was seen on 09/19/18. Subjective Chief Complaint/HPI Pt with at bedside. Pt has just completed PT. She state that she is doing alright. She states that her pain is slightly better controlled than it has been. She still has a great deal of pain though. She was only able to tolerate minimal PT. She reports sleeping well last night. General: Denies: Fatigue Constitutional: Denies: Chills, Fever Skin: Denies: Rash Pulmonary: Denies: Dyspnea, Cough Cardiovascular: Denies: Chest Pain, Palpitations Gastrointestinal: Denies: Nausea, Vomiting Musculoskeletal: Reports: Back Pain Psych: Reports: Mood Normal Objective Physical Examination General Exam: Positive: Alert, Cooperative, No Acute Distress ENT Exam: Positive: Mucous membr. moist/pink Chest Exam: Positive: Clear to auscultation, Normal air movement, Diminished Heart Exam: Positive: Rate Normal, Tachycardic Abdomen Exam: Positive: Normal bowel sounds, Soft, Other (urostomy intact: clear yellow urine draining into bag); Negative: Tenderness Extremity Exam: Negative: Edema, Swelling Psych Exam: Positive: Mental status NL, Oriented x 3 Assessment /Plan Problems (1) Pathologic fracture Status: Acute Problem Text: 09/19 some improvement with adjustments to pain regimen. Will re assess tomorrow. She was able to tolerate some PT today. 09/18/18: POorly tolerating TLSO brace and PT. Will consult pain management today. Added on Simethicone for gas/bloating discomfort. Continue with RT. 09/17 - TLSO brace obtained - Did not tolerate being upright for very long despite brace Has RT scheduled later today Cont Percocet Add Fleets for bowel care per patient request 09/16/18: planned TLSO brace. Will need imaging once brace is on. Per Ortho: repeat x-rays of the cervical lumbar spine, AP and lateral views after the patient has mobilized with physical therapy, and we would want those x-rays with her standing. 09/15 -- She has persistent back pain, though improved somewhat with increased dose of Percocet. Back brace still pending. Pain uncontrolled today, and I increased her Percocet. Per ortho, needs to remain in bed until back brace is available. (2) Constipation due to opioid therapy Status: Acute Problem Text: 09/18/18: encouraged to continue with stool softeners and to get OOB for bowel motility. 09/16/18: Scheduled bowel meds, patient is compliant. Should improve once she mobilizes with brace. Consider Movantik if constipation persists. 09/15 -- She is still not taking much for a bowel regimen, refusing her scheduled meds, since they gave her abdominal discomfort. Discussed with her and her family that stomach discomfort would persist and likely worsen until she started moving her bowels. Secondary to opioids and lack of activity. Looking at her records, she hasn't been taking much to help her move her bowels, as her orders have been mostly prn, and she hasn't asked for more than 1 medication most days. I made a couple of her medications scheduled instead of prn. (3) History of bladder cancer Status: Acute (4) HTN (hypertension) Status: Chronic Response to Treatment: Stable Problem Text: 09/18/18: Most likely related to pain. irbesartan added today for high BP Plan/VTE VTE Prophylaxis Ordered?: Yes VS, I&O, 24H, [facility] Vital Signs/I&O Vital Signs Date Time Temp Pulse Resp B/P (MAP) Pulse Ox O2 Delivery O2 Flow Rate FiO2 09/19/18 10:30 70 14 09/19/18 10:07 130/64 09/19/18 06:00 96.9 94 I&O- Last 24 Hours up to 6 AM 09/19/18 06:00 Intake Total 740 ml Output Total 700 ml Balance 40 ml Laboratory Data 24H LABS Laboratory Tests 2 09/19/18 05:38: Immature Granulocyte % (Auto) 1.7, White Blood Count 11.2H, Red Blood Count 3.00L, Hemoglobin 9.7L, Hematocrit 29.7L, Mean Corpuscular Volume 99.0H, Mean Corpuscular Hemoglobin 32.3, Mean Corpuscular Hemoglobin Concent 32.7, Red Cell Distribution Width 12.4, Platelet Count 361, Neutrophils (%) (Auto) 89.1H, Lymphocytes (%) (Auto) 2.6L, Monocytes (%) (Auto) 6.4H, Eosinophils (%) (Auto) 0.1, Basophils (%) (Auto) 0.1, Neutrophils # (Auto) 10.0H, Lymphocytes # (Auto) 0.3L, Monocytes # (Auto) 0.7, Eosinophils # (Auto) 0.0, Basophils # (Auto) 0.0, Nucleated Red Blood Cells % (auto) 0.0, Anion Gap 6L, Glomerular Filtration Rate > 60.0, Blood Urea Nitrogen 17, Creatinine 0.48L, Sodium Level 135L, Potassium Level 4.1, Chloride Level 101, Carbon Dioxide Level 28, Calcium Level 9.0 CBC/BMP Laboratory Tests 09/19/18 05:38 Red Blood Count 3.00 L, Mean Corpuscular Volume 99.0 H, Mean Corpuscular Hemoglobin 32.3, Mean Corpuscular Hemoglobin Concent 32.7, Red Cell Distribution Width 12.4, Neutrophils (%) (Auto) 89.1 H, Lymphocytes (%) (Auto) 2.6 L, Monocytes (%) (Auto) 6.4 H, Eosinophils (%) (Auto) 0.1, Basophils (%) (Auto) 0.1, Neutrophils # (Auto) 10.0 H, Lymphocytes # (Auto) 0.3 L, Monocytes # (Auto) 0.7, Eosinophils # (Auto) 0.0, Basophils # (Auto) 0.0, Calcium Level 9.0 Microbiology Microbiology 09/09/18 Blood Culture - Final, Complete NO GROWTH AFTER 5 DAYS 09/09/18 Blood Culture - Final, Complete NO GROWTH AFTER 5 DAYS 09/17/18 Urine Culture - Final, Complete Escherichia Coli 09/09/18 Urine Culture - Final, Complete Escherichia Coli Enterococcus Faecalis GODWIN CHAMORRO PA-C Sep 19, 2018 11:14
[2018-09-19] MEDS: ONDANSETRON 4 MG TAB (S0181) PO PRN (12:55)
[2018-09-19 14:00] VITALS: BP 143/67
[2018-09-19 16:37] VITALS: BP 138/70
[2018-09-19] MEDS: diphenhydrAMINE 50 MG CAP PO SCH (21:29)
[2018-09-19] MEDS: ROSUVASTATIN 10 MG TAB (CRESTOR) PO SCH (21:31)
[2018-09-19] MEDS: ATENOLOL 50 MG TAB PO SCH (21:31)
[2018-09-19 22:00] VITALS: BP 176/75
[2018-09-20] MEDS: dexameTHASONE 4 MG/ML 1ML VIAL (J1100) IV SCH ×4 (03:40→22:14)
[2018-09-20] MEDS: oxyCODONE 5MG TAB PO PRN ×2 (03:40→07:52)
[2018-09-20 06:00] VITALS: BP 168/69
[2018-09-20 06:33] LABS: BASO % 0.1 % (0.0-1.0); EOS % 0.1 % (0.0-3.0); HEMATOCRIT 30.6 % (36.0-47.0); HEMOGLOBIN 9.9 g/dl (12.0-15.5); LYMPH % 1.1 % (24.0-44.0); MEAN CORPUSCULAR HEMOGLOBIN 33.1 pg (27.0-33.0); MEAN CORPUSCULAR HGB CONC 32.4 g/dl (32.0-36.5); MEAN CORPUSCULAR VOLUME 102.3 fl (80.0-96.0); MONO # 0.8 10^3/uL (0.0-0.8); MONO % 5.3 % (0.0-5.0); NEUTROPHILS # 14.2 10^3/uL (1.8-7.7); NEUTROPHILS % 91.7 % (36.0-66.0); PLATELET COUNT, AUTOMATED 314 10^3/uL (150-450); RED BLOOD COUNT 2.99 10^6/uL (4.00-5.40); WHITE BLOOD COUNT 15.4 10^3/uL (4.0-10.0)
[2018-09-20 06:48] LABS: BLOOD UREA NITROGEN 18 MG/DL (7-18); CALCIUM LEVEL 8.9 MG/DL (8.8-10.2); CARBON DIOXIDE LEVEL 29 MEQ/L (21-32); CHLORIDE LEVEL 100 MEQ/L (98-107); CREATININE FOR GFR 0.58 MG/DL (0.55-1.30); GLOMERULAR FILTRATION RATE > 60.0 (>32); GLUCOSE, FASTING 109 MG/DL (70-100); POTASSIUM SERUM 4.3 MEQ/L (3.5-5.1); SODIUM LEVEL 135 MEQ/L (136-145)
[2018-09-20 07:06] LABS: LYMPH # 0.2 10^3/uL (1.5-4.5)
[2018-09-20] MEDS: SIMETHICONE 80 MG CHEW TAB PO PRN ×2 (08:00→14:03)
[2018-09-20 08:32] VITALS: BP 123/69
[2018-09-20] MEDS: VITAMIN D 1,000 INTERNATIONAL UNITS TABLET PO SCH (08:50)
[2018-09-20] MEDS: DOCUSATE SODIUM 100 MG CAP PO SCH ×2 (08:50→22:16)
[2018-09-20] MEDS: PANTOPRAZOLE 40MG TAB (PROTONIX) PO SCH (08:51)
[2018-09-20] MEDS: MAGNESIUM OXIDE 400 MG TAB (MAG-OX) PO SCH (08:51)
[2018-09-20] MEDS: tiZANidine 4 MG TAB PO SCH ×3 (08:51→22:15)
[2018-09-20] MEDS: CelecoXIB (CeleBREX) 100 MG CAP PO SCH ×2 (08:51→22:15)
[2018-09-20] MEDS: GABAPENTIN 300 MG CAP PO SCH ×2 (08:51→22:14)
[2018-09-20] MEDS: NITROFURANTOIN (MACROBID) 100 MG CAP PO SCH ×2 (08:51→22:14)
[2018-09-20] MEDS: IRBESARTAN 150 MG TAB PO SCH (08:52)
[2018-09-20] MEDS: MORPHINE 30 MG TAB **MSIR PO SCH (08:53)
[2018-09-20] MEDS: MIRALAX *UNIT DOSE* 17GM PACKET PO SCH (08:53)
[2018-09-20] MEDS ORDERED: FLEET ENEMA PR PRN (09:00)
--- NOTE | 2018-09-20 09:02 | IPNPDOC ---
Subjective Date Seen The patient was seen on 09/20/18. Subjective Chief Complaint/HPI Pt this morning states that she is doing alright. She doesn't feel as though the oxycodone is really working and feels as if it is also the cause of some indigestion she is feeling. She states that it gets worse after taking it. Last BM Sun, feels urge to go today and yesterday, but unable. General: Reports: Fatigue Constitutional: Denies: Chills, Fever ENT: Denies: Head Aches Pulmonary: Denies: Dyspnea, Cough Cardiovascular: Denies: Chest Pain, Palpitations Gastrointestinal: Reports: Abdominal Pain (comes and goes with gas pains.); Denies: Nausea, Vomiting Neurological: Reports: Weakness Psych: Reports: Mood Normal Objective Physical Examination General Exam: Positive: Alert, Cooperative, No Acute Distress ENT Exam: Positive: Mucous membr. moist/pink Chest Exam: Positive: Clear to auscultation, Normal air movement, Diminished Heart Exam: Positive: Rate Normal Abdomen Exam: Positive: Normal bowel sounds, Soft, Other (urostomy intact: clear yellow urine draining into bag); Negative: Tenderness Extremity Exam: Negative: Edema, Swelling Psych Exam: Positive: Mental status NL, Oriented x 3 Assessment /Plan Problems (1) Pathologic fracture Status: Acute Problem Text: Will talk with Dr Coker regarding Pain mgmt, consider change Oxy to long acting with MSIR given in between for break through pain. 09/19 some improvement with adjustments to pain regimen. Will reassess tomorrow. She was able to tolerate some PT today. 09/18/18: POorly tolerating TLSO brace and PT. Will consult pain management today. Added on Simethicone for gas/bloating discomfort. Continue with RT. 09/17 - TLSO brace obtained - Did not tolerate being upright for very long despite brace Has RT scheduled later today Cont Percocet Add Fleets for bowel care per patient request 09/16/18: planned TLSO brace. Will need imaging once brace is on. Per Ortho: repeat x-rays of the cervical lumbar spine, AP and lateral views after the patient has mobilized with physical therapy, and we would want those x-rays with her standing. 09/15 -- She has persistent back pain, though improved somewhat with increased dose of Percocet. Back brace still pending. Pain uncontrolled today, and I increased her Percocet. Per ortho, needs to remain in bed until back brace is available. (2) Constipation due to opioid therapy Status: Acute Problem Text: 09/20 add Fleets. 09/18/18: encouraged to continue with stool softeners and to get OOB for bowel motility. 09/16/18: Scheduled bowel meds, patient is compliant. Should improve once she mobilizes with brace. Consider Movantik if constipation persists. 09/15 -- She is still not taking much for a bowel regimen, refusing her scheduled meds, since they gave her abdominal discomfort. Discussed with her and her family that stomach discomfort would persist and likely worsen until she started moving her bowels. Secondary to opioids and lack of activity. Looking at her records, she hasn't been taking much to help her move her bowels, as her orders have been mostly prn, and she hasn't asked for more than 1 medication most days. I made a couple of her medications scheduled instead of prn. (3) History of bladder cancer Status: Acute (4) HTN (hypertension) Status: Chronic Response to Treatment: Stable Problem Text: 09/18/18: Most likely related to pain. irbesartan added today for high BP Plan/VTE VTE Prophylaxis Ordered?: Yes VS, I&O, 24H, Panfilo Vital Signs/I&O Vital Signs Date Time Temp Pulse Resp B/P (MAP) Pulse Ox O2 Delivery O2 Flow Rate FiO2 09/20/18 08:53 18 09/20/18 08:52 123/69 09/20/18 08:32 65 09/20/18 06:00 97.6 98 I&O- Last 24 Hours up to 6 AM 09/20/18 06:00 Intake Total 970 ml Output Total 1000 ml Balance -30 ml Laboratory Data 24H LABS Laboratory Tests 2 09/20/18 05:40: Immature Granulocyte % (Auto) 1.7, White Blood Count 15.4H, Red Blood Count 2.99L, Hemoglobin 9.9L, Hematocrit 30.6L, Mean Corpuscular Volume 102.3H, Mean Corpuscular Hemoglobin 33.1H, Mean Corpuscular Hemoglobin Concent 32.4, Red Cell Distribution Width 12.6, Platelet Count 314, Neutrophils (%) (Auto) 91.7H, Ly mphocytes (%) (Auto) 1.1L, Monocytes (%) (Auto) 5.3H, Eosinophils (%) (Auto) 0.1, Basophils (%) (Auto) 0.1, Neutrophils # (Auto) 14.2H, Lymphocytes # (Auto) 0.2L, Monocytes # (Auto) 0.8, Eosinophils # (Auto) 0.0, Basophils # (Auto) 0.0, Nucleated Red Blood Cells % (auto) 0.0, Anion Gap 6L, Glomerular Filtration Rate > 60.0, Blood Urea Nitrogen 18, Creatinine 0.58, Sodium Level 135L, Potassium Level 4.3, Chloride Level 100, Carbon Dioxide Level 29, Calcium Level 8.9 CBC/BMP Laboratory Tests 09/20/18 05:40 Red Blood Count 2.99 L, Mean Corpuscular Volume 102.3 H, Mean Corpuscular Hemoglobin 33.1 H, Mean Corpuscular Hemoglobin Concent 32.4, Red Cell Distribution Width 12.6, Neutrophils (%) (Auto) 91.7 H, Lymphocytes (%) (Auto) 1.1 L, Monocytes (%) (Auto) 5.3 H, Eosinophils (%) (Auto) 0.1, Basophils (%) (Auto) 0.1, Neutrophils # (Auto) 14.2 H, Lymphocytes # (Auto) 0.2 L, Monocytes # (Auto) 0.8, Eosinophils # (Auto) 0.0, Basophils # (Auto) 0.0, Calcium Level 8.9 Microbiology Microbiology 09/17/18 Urine Culture - Final, Complete Escherichia Coli Attending Note Attending Note will change pain med schedule to MS contin 15 bid, continue current dose of IR morphine and d/c oxycodone since patient associates it with heartburn. Discussed code status and patient would like to change to DNR/DNI. MOLST filled out, when signed then activate DNR status GODWIN CHAMORRO PA-C Sep 20, 2018 09:02 Johnie Coker MD Sep 20, 2018 11:24
[2018-09-20] MEDS ORDERED: MORPHINE 15 MG SA TAB PO ONE (12:00)
[2018-09-20] MEDS: ONDANSETRON 4 MG TAB (S0181) PO PRN (12:05)
[2018-09-20 14:00] VITALS: BP 160/71
[2018-09-20] MEDS: MORPHINE 30 MG TAB **MSIR PO PRN (15:43)
[2018-09-20] MEDS: LIDOCAINE 5% OINT 30 GM TOP PRN (17:03)
[2018-09-20 22:00] VITALS: BP 151/69
[2018-09-20] MEDS: MORPHINE 15 MG SA TAB PO SCH (22:13)
[2018-09-20] MEDS: ROSUVASTATIN 10 MG TAB (CRESTOR) PO SCH (22:15)
[2018-09-20] MEDS: diphenhydrAMINE 50 MG CAP PO SCH (22:15)
[2018-09-20] MEDS: FAMOTIDINE 20 MG TAB PO SCH (22:15)
[2018-09-20] MEDS: ATENOLOL 50 MG TAB PO SCH (22:15)
[2018-09-21] MEDS: dexameTHASONE 4 MG/ML 1ML VIAL (J1100) IV SCH ×4 (04:25→21:59)
[2018-09-21 06:00] VITALS: BP 141/70
[2018-09-21 06:12] LABS: BASO % 0.2 % (0.0-1.0); EOS % 0.1 % (0.0-3.0); HEMATOCRIT 31.5 % (36.0-47.0); HEMOGLOBIN 10.1 g/dl (12.0-15.5); LYMPH % 1.3 % (24.0-44.0); MEAN CORPUSCULAR HEMOGLOBIN 32.7 pg (27.0-33.0); MEAN CORPUSCULAR HGB CONC 32.1 g/dl (32.0-36.5); MEAN CORPUSCULAR VOLUME 101.9 fl (80.0-96.0); MONO % 7.4 % (0.0-5.0); NEUTROPHILS # 11.5 10^3/uL (1.8-7.7); NEUTROPHILS % 89.7 % (36.0-66.0); PLATELET COUNT, AUTOMATED 301 10^3/uL (150-450); RED BLOOD COUNT 3.09 10^6/uL (4.00-5.40); WHITE BLOOD COUNT 12.8 10^3/uL (4.0-10.0)
[2018-09-21 06:40] LABS: BLOOD UREA NITROGEN 25 MG/DL (7-18); CALCIUM LEVEL 8.4 MG/DL (8.8-10.2); CARBON DIOXIDE LEVEL 30 MEQ/L (21-32); CHLORIDE LEVEL 101 MEQ/L (98-107); CREATININE FOR GFR 0.63 MG/DL (0.55-1.30); GLOMERULAR FILTRATION RATE > 60.0 (>32); GLUCOSE, FASTING 100 MG/DL (70-100); POTASSIUM SERUM 4.6 MEQ/L (3.5-5.1); SODIUM LEVEL 137 MEQ/L (136-145)
[2018-09-21 07:55] LABS: LYMPH # 0.2 10^3/uL (1.5-4.5)
[2018-09-21 09:00] VITALS: BP 143/73
[2018-09-21] MEDS: DOCUSATE SODIUM 100 MG CAP PO SCH ×3 (09:00→22:00)
[2018-09-21] MEDS: MIRALAX *UNIT DOSE* 17GM PACKET PO SCH (09:17)
[2018-09-21] MEDS: MORPHINE 15 MG SA TAB PO SCH ×2 (09:18→22:02)
[2018-09-21] MEDS: NITROFURANTOIN (MACROBID) 100 MG CAP PO SCH ×2 (09:19→22:02)
[2018-09-21] MEDS: CelecoXIB (CeleBREX) 100 MG CAP PO SCH ×2 (09:19→22:00)
[2018-09-21] MEDS: IRBESARTAN 150 MG TAB PO SCH (09:19)
[2018-09-21] MEDS: VITAMIN D 1,000 INTERNATIONAL UNITS TABLET PO SCH (09:20)
[2018-09-21] MEDS: GABAPENTIN 300 MG CAP PO SCH ×2 (09:20→22:02)
[2018-09-21] MEDS: PANTOPRAZOLE 40MG TAB (PROTONIX) PO SCH (09:20)
[2018-09-21] MEDS: MAGNESIUM OXIDE 400 MG TAB (MAG-OX) PO SCH (09:20)
[2018-09-21] MEDS: tiZANidine 4 MG TAB PO SCH ×3 (09:20→22:02)
[2018-09-21] MEDS: FLEET ENEMA PR PRN (09:37)
[2018-09-21] MEDS: MORPHINE 30 MG TAB **MSIR PO PRN ×2 (12:37→18:49)
[2018-09-21 14:00] VITALS: BP 121/70
[2018-09-21] MEDS: diphenhydrAMINE 50 MG CAP PO SCH (21:59)
[2018-09-21 22:00] VITALS: BP 139/63
[2018-09-21] MEDS: ROSUVASTATIN 10 MG TAB (CRESTOR) PO SCH (22:00)
[2018-09-21] MEDS: FAMOTIDINE 20 MG TAB PO SCH (22:03)
[2018-09-21] MEDS: ATENOLOL 50 MG TAB PO SCH (22:33)
[2018-09-21] MEDS: ONDANSETRON 4 MG TAB (S0181) PO PRN (22:41)
[2018-09-22] MEDS: dexameTHASONE 4 MG/ML 1ML VIAL (J1100) IV SCH ×4 (04:48→21:35)
[2018-09-22 05:56] LABS: BASO % 0.2 % (0.0-1.0); EOS % 0.1 % (0.0-3.0); HEMOGLOBIN 10.4 g/dl (12.0-15.5); LYMPH % 1.3 % (24.0-44.0); MEAN CORPUSCULAR HGB CONC 32.5 g/dl (32.0-36.5); MEAN CORPUSCULAR VOLUME 104.6 fl (80.0-96.0); MONO % 8.5 % (0.0-5.0); NEUTROPHILS # 10.7 10^3/uL (1.8-7.7); NEUTROPHILS % 88.5 % (36.0-66.0); PLATELET COUNT, AUTOMATED 290 10^3/uL (150-450); RED BLOOD COUNT 3.06 10^6/uL (4.00-5.40); WHITE BLOOD COUNT 12.1 10^3/uL (4.0-10.0)
[2018-09-22 06:00] VITALS: BP 149/70
[2018-09-22 06:19] LABS: BLOOD UREA NITROGEN 32 MG/DL (7-18); CALCIUM LEVEL 8.2 MG/DL (8.8-10.2); CARBON DIOXIDE LEVEL 27 MEQ/L (21-32); CHLORIDE LEVEL 103 MEQ/L (98-107); CREATININE FOR GFR 0.65 MG/DL (0.55-1.30); GLOMERULAR FILTRATION RATE > 60.0 (>32); GLUCOSE, FASTING 114 MG/DL (70-100); PHOSPHORUS LEVEL 3.9 MG/DL (2.5-4.9); POTASSIUM SERUM 4.6 MEQ/L (3.5-5.1); SODIUM LEVEL 140 MEQ/L (136-145)
[2018-09-22 06:50] LABS: LYMPH # 0.2 10^3/uL (1.5-4.5)
[2018-09-22] MEDS ORDERED: OMEPRAZOLE 20 MG CAP PO SCH (09:00)
[2018-09-22] MEDS: MIRALAX *UNIT DOSE* 17GM PACKET PO SCH (09:08)
[2018-09-22] MEDS: CelecoXIB (CeleBREX) 100 MG CAP PO SCH ×2 (09:09→21:36)
[2018-09-22] MEDS: tiZANidine 4 MG TAB PO SCH ×3 (09:09→21:36)
[2018-09-22] MEDS: IRBESARTAN 150 MG TAB PO SCH (09:09)
[2018-09-22] MEDS: MAGNESIUM OXIDE 400 MG TAB (MAG-OX) PO SCH (09:10)
[2018-09-22] MEDS: NITROFURANTOIN (MACROBID) 100 MG CAP PO SCH (09:10)
[2018-09-22] MEDS: GABAPENTIN 300 MG CAP PO SCH ×2 (09:10→21:38)
[2018-09-22] MEDS: DOCUSATE SODIUM 100 MG CAP PO SCH ×2 (09:10→21:38)
[2018-09-22] MEDS: PANTOPRAZOLE 40MG TAB (PROTONIX) PO SCH (09:10)
[2018-09-22] MEDS: VITAMIN D 1,000 INTERNATIONAL UNITS TABLET PO SCH (09:10)
[2018-09-22] MEDS: MORPHINE 15 MG SA TAB PO SCH ×2 (09:11→21:37)
[2018-09-22] MEDS: MORPHINE 30 MG TAB **MSIR PO PRN ×2 (11:39→18:08)
[2018-09-22 14:00] VITALS: BP 134/59
[2018-09-22] MEDS ORDERED: CALCIUM CARBONATE 500 MG CHEW U/D PO PRN (15:00)
[2018-09-22] MEDS: ATENOLOL 50 MG TAB PO SCH (21:00)
[2018-09-22 21:20] VITALS: BP 123/69
[2018-09-22] MEDS: diphenhydrAMINE 50 MG CAP PO SCH (21:36)
[2018-09-22] MEDS: ROSUVASTATIN 10 MG TAB (CRESTOR) PO SCH (21:36)
[2018-09-22] MEDS: FAMOTIDINE 20 MG TAB PO SCH (21:36)
[2018-09-22 22:00] VITALS: BP 121/61
--- NOTE | 2018-09-22 23:57 | IPNPDOC ---
Subjective Date Seen The patient was seen on 09/22/18. Objective Physical Examination General Exam: Positive: Alert, Cooperative, No Acute Distress ENT Exam: Positive: Mucous membr. moist/pink Chest Exam: Positive: Clear to auscultation, Normal air movement, Diminished Heart Exam: Positive: Rate Normal Abdomen Exam: Positive: Normal bowel sounds, Soft, Other (urostomy intact: clear yellow urine draining into bag); Negative: Tenderness Extremity Exam: Negative: Edema, Swelling Psych Exam: Positive: Mental status NL, Oriented x 3 Assessment /Plan Problems (1) Pathologic fracture Status: Acute Problem Text: Will talk with Dr Coker regarding Pain mgmt, consider change Oxy to long acting with MSIR given in between for break through pain. 09/19 some improvement with adjustments to pain regimen. Will reassess tomorrow. She was able to tolerate some PT today. 09/18/18: POorly tolerating TLSO brace and PT. Will consult pain management today. Added on Simethicone for gas/bloating discomfort. Continue with RT. 09/17 - TLSO brace obtained - Did not tolerate being upright for very long despite brace Has RT scheduled later today Cont Percocet Add Fleets for bowel care per patient request 09/16/18: planned TLSO brace. Will need imaging once brace is on. Per Ortho: repeat x-rays of the cervical lumbar spine, AP and lateral views after the patient has mobilized with physical therapy, and we would want those x-rays with her standing. 09/15 -- She has persistent back pain, though improved somewhat with increased dose of Percocet. Back brace still pending. Pain uncontrolled today, and I increased her Percocet. Per ortho, needs to remain in bed until back brace is available. (2) Constipation due to opioid therapy Status: Acute Problem Text: 09/20 add Fleets. 09/18/18: encouraged to continue with stool softeners and to get OOB for bowel motility. 09/16/18: Scheduled bowel meds, patient is compliant. Should improve once she mobilizes with brace. Consider Movantik if constipation persists. 09/15 -- She is still not taking much for a bowel regimen, refusing her scheduled meds, since they gave her abdominal discomfort. Discussed with her and her family that stomach discomfort would persist and likely worsen until she started moving her bowels. Secondary to opioids and lack of activity. Looking at her records, she hasn't been taking much to help her move her bowels, as her orders have been mostly prn, and she hasn't asked for more than 1 medication most days. I made a couple of her medications scheduled instead of prn. (3) History of bladder cancer Status: Acute (4) HTN (hypertension) Status: Chronic Response to Treatment: Stable Problem Text: 09/18/18: Most likely related to pain. irbesartan added today for high BP Plan/VTE VTE Prophylaxis Ordered?: Yes VS, I&O, 24H, Fishbone Vital Signs/I&O Vital Signs Date Time Temp Pulse Resp B/P (MAP) Pulse Ox O2 Delivery O2 Flow Rate FiO2 09/22/18 22:00 96.9 63 20 121/61 (81) 93 I&O- Last 24 Hours up to 6 AM 09/22/18 06:00 Intake Total 970 ml Output Total 1150 ml Balance -180 ml Laboratory Data 24H LABS Laboratory Tests 2 09/22/18 05:27: Immature Granulocyte % (Auto) 1.4, White Blood Count 12.1H, Red Blood Count 3.06L, Hemoglobin 10.4L, Hematocrit 32.0L, Mean Corpuscular Volume 104.6H, Mean Corpuscular Hemoglobin 34.0H, Mean Corpuscular Hemoglobin Concent 32.5, Red Cell Distribution Width 12.8, Platelet Count 290, Neutrophils (%) (Auto) 88.5H, Lymphocytes (%) (Auto) 1.3L, Monocytes (%) (Auto) 8.5H, Eosinophils (%) (Auto) 0.1, Basophils (%) (Auto) 0.2, Neutrophils # (Auto) 10.7H, Lymphocytes # (Auto) 0.2L, Monocytes # (Auto) 1.0H, Eosinophils # (Auto) 0.0, Basophils # (Auto) 0.0, Nucleated Red Blood Cells % (auto) 0.0, Blood Urea Nitrogen 32H, Creatinine 0.65, Sodium Level 140, Potassium Level 4.6, Chloride Level 103, Carbon Dioxide Level 27, Anion Gap 10, Glomerular Filtration Rate > 60.0, Calcium Level 8.2L, Phosphorus Level 3.9, Albumin 3.0L CBC/BMP Laboratory Tests 09/22/18 05:27 Red Blood Count 3.06 L, Mean Corpuscular Volume 104.6 H, Mean Corpuscular Hemoglobin 34.0 H, Mean Corpuscular Hemoglobin Concent 32.5, Red Cell Distribution Width 12.8, Neutrophils (%) (Auto) 88.5 H, Lymphocytes (%) (Auto) 1.3 L, Monocytes (%) (Auto) 8.5 H, Eosinophils (%) (Auto) 0.1, Basophils (%) (Auto) 0.2, Neutrophils # (Auto) 10.7 H, Lymphocytes # (Auto) 0.2 L, Monocytes # (Auto) 1.0 H, Eosinophils # (Auto) 0.0, Basophils # (Auto) 0.0, Anion Gap 10 Microbiology Microbiology 09/17/18 Urine Culture - Final, Complete Escherichia Coli Jerardo Cristobal MD Sep 22, 2018 11:57 pm
[2018-09-23] MEDS: dexameTHASONE 4 MG/ML 1ML VIAL (J1100) IV SCH ×4 (05:05→22:34)
[2018-09-23 06:00] VITALS: BP 129/63
--- NOTE | 2018-09-23 08:22 | IPNPDOC ---
Subjective Date Seen The patient was seen on 09/23/18. Subjective Chief Complaint/HPI back pain Events since last encounter Patient notes improvement in pain control. States improvement getting OOB over the weekend. Planed PT eval today. tolerating TLSO brace. Main c/o is poor appetite due to reflux. Currently taking Omeprazole 40 mg po daily. Constitutional: Denies: Chills, Fever, Night Sweats Pulmonary: Denies: Dyspnea, Cough Gastrointestinal: Reports: Other Symptoms (reflux with decreased appetite); Denies: Nausea, Vomiting Genitourinary: Reports: Other Symptoms (urostomy) Psych: Reports: Mood Normal Objective Physical Examination General Exam: Positive: Alert, Cooperative, No Acute Distress ENT Exam: Positive: Mucous membr. moist/pink Chest Exam: Positive: Clear to auscultation, Normal air movement, Diminished Heart Exam: Positive: Rate Normal Abdomen Exam: Positive: Normal bowel sounds, Soft, Other (urostomy intact: clear yellow urine draining); Negative: Tenderness Extremity Exam: Negative: Edema, Swelling Psych Exam: Positive: Mental status NL, Oriented x 3 Assessment /Plan Assessment Seen, agree with note below. Spoke with patient while multiple family members at bedside. Today she reports walking from the bed to the door and sitting in a chair, as the most activity she has done while hospitalized. Discussed likely need for DC rehab, and she and her family report that they have been discussing this. She also complains of GERD, and we have increased her PPI to BID, with T ums prn; I encouraged her to continue eating despite GERD. -- CDT Problems (1) Pathologic fracture Status: Acute Problem Text: 09/23/18: patient notes imrpovement in pain management. Planned PT eval today. DC has been delayed due to limited progression with therapy due to pain. Will talk with Dr Coker regarding Pain mgmt, consider change Oxy to long acting with MSIR given in between for break through pain. 09/19 some improvement with adjustments to pain regimen. Will reassess tomorrow. She was able to tolerate some PT today. 09/18/18: POorly tolerating TLSO brace and PT. Will consult pain management today. Added on Simethicone for gas/bloating discomfort. Continue with RT. 09/17 - TLSO brace obtained - Did not tolerate being upright for very long despite brace Has RT scheduled later today Cont Percocet Add Fleets for bowel care per patient request 09/16/18: planned TLSO brace. Will need imaging once brace is on. Per Ortho: repeat x-rays of the cervical lumbar spine, AP and lateral views after the patient has mobilized with physical therapy, and we would want those x-rays with her standing. 09/15 -- She has persistent back pain, though improved somewhat with increased dose of Percocet. Back brace still pending. Pain uncontrolled today, and I increased her Percocet. Per ortho, needs to remain in bed until back brace is available. (2) Constipation due to opioid therapy Status: Acute Problem Text: 09/20 add Fleets. 09/18/18: encouraged to continue with stool softeners and to get OOB for bowel motility. 09/16/18: Scheduled bowel meds, patient is compliant. Should improve once she mobilizes with brace. Consider Movantik if constipation persists. 09/15 -- She is still not taking much for a bowel regimen, refusing her scheduled meds, since they gave her abdominal discomfort. Discussed with her and her family that stomach discomfort would persist and likely worsen until she started moving her bowels. Secondary to opioids and lack of activity. Looking at her records, she hasn't been taking much to help her move her bowels, as her orders have been mostly prn, and she hasn't asked for more than 1 medication most days. I made a couple of her medications scheduled instead of prn. (3) History of bladder cancer Status: Acute (4) HTN (hypertension) Status: Chronic Response to Treatment: Stable Problem Text: 09/23/18: BP stable on current dosing of Irbesartan 09/18/18: Most likely related to pain. irbesartan added today for high BP Plan/VTE VTE Prophylaxis Ordered?: Yes VS, I&O, 24H, Fishbone Vital Signs/I&O Vital Signs Date Time Temp Pulse Resp B/P (MAP) Pulse Ox O2 Delivery O2 Flow Rate FiO2 09/23/18 06:00 96.7 60 18 129/63 (85) 93 I&O- Last 24 Hours up to 6 AM 09/23/18 06:00 Intake Total 538 ml Output Total 800 ml Balance -262 ml Laboratory Data Microbiology Microbiology 09/17/18 Urine Culture - Final, Complete Escherichia Coli Lissette Navarro [employer] Sep 23, 2018 08:22 GERMAIN KINGSTON DO Sep 23, 2018 15:12
[2018-09-23] MEDS ORDERED: OMEPRAZOLE 20 MG CAP PO SCH (09:00)
[2018-09-23] MEDS: MAGNESIUM OXIDE 400 MG TAB (MAG-OX) PO SCH (09:28)
[2018-09-23] MEDS: tiZANidine 4 MG TAB PO SCH ×3 (09:28→22:32)
[2018-09-23] MEDS: GABAPENTIN 300 MG CAP PO SCH ×2 (09:28→22:33)
[2018-09-23] MEDS: VITAMIN D 1,000 INTERNATIONAL UNITS TABLET PO SCH (09:28)
[2018-09-23] MEDS: DOCUSATE SODIUM 100 MG CAP PO SCH ×2 (09:31→22:33)
[2018-09-23] MEDS: IRBESARTAN 150 MG TAB PO SCH (09:31)
[2018-09-23] MEDS: MORPHINE 15 MG SA TAB PO SCH ×2 (09:33→22:28)
[2018-09-23] MEDS: MIRALAX *UNIT DOSE* 17GM PACKET PO SCH (09:33)
[2018-09-23] MEDS: OMEPRAZOLE 20 MG CAP PO SCH ×2 (09:34→22:33)
[2018-09-23] MEDS: CelecoXIB (CeleBREX) 100 MG CAP PO SCH ×2 (09:34→22:32)
[2018-09-23 14:00] VITALS: BP 125/65
[2018-09-23] MEDS: MORPHINE 30 MG TAB **MSIR PO PRN (15:57)
[2018-09-23] MEDS: NYSTATIN 500,000 U/5 ML SUSP UDC SS SCH (19:28)
[2018-09-23 22:00] VITALS: BP 121/70
[2018-09-23] MEDS: ATENOLOL 50 MG TAB PO SCH (22:31)
[2018-09-23] MEDS: ROSUVASTATIN 10 MG TAB (CRESTOR) PO SCH (22:32)
[2018-09-23] MEDS: diphenhydrAMINE 50 MG CAP PO SCH (22:32)
[2018-09-23] MEDS: FAMOTIDINE 20 MG TAB PO SCH (22:33)
[2018-09-24] MEDS: NYSTATIN 500,000 U/5 ML SUSP UDC SS SCH ×2 (03:19→06:25)
[2018-09-24] MEDS: dexameTHASONE 4 MG/ML 1ML VIAL (J1100) IV SCH ×2 (03:19→08:07)
[2018-09-24 06:00] VITALS: BP 161/61
[2018-09-24] MEDS: MIRALAX *UNIT DOSE* 17GM PACKET PO SCH (08:06)
[2018-09-24] MEDS: DOCUSATE SODIUM 100 MG CAP PO SCH (08:08)
[2018-09-24] MEDS: VITAMIN D 1,000 INTERNATIONAL UNITS TABLET PO SCH (08:08)
[2018-09-24 08:12] VITALS: BP 126/65
[2018-09-24] MEDS: IRBESARTAN 150 MG TAB PO SCH (08:12)
[2018-09-24] MEDS: MAGNESIUM OXIDE 400 MG TAB (MAG-OX) PO SCH (08:13)
[2018-09-24] MEDS: CelecoXIB (CeleBREX) 100 MG CAP PO SCH (08:13)
[2018-09-24] MEDS: MORPHINE 15 MG SA TAB PO SCH (08:13)
[2018-09-24] MEDS: OMEPRAZOLE 20 MG CAP PO SCH (08:13)
[2018-09-24] MEDS: GABAPENTIN 300 MG CAP PO SCH (08:13)
[2018-09-24] MEDS: tiZANidine 4 MG TAB PO SCH (08:18)
[2018-09-24] MEDS ORDERED: TIZA4TAB4 PO (10:26)
[2018-09-24] MEDS ORDERED: SENN-52 PO (10:26)
[2018-09-24] MEDS ORDERED: DIPH50CA PO (10:26)
[2018-09-24] MEDS ORDERED: CALC200T15 PO (10:26)
[2018-09-24] MEDS ORDERED: SIME80TA PO (10:26)
[2018-09-24] MEDS ORDERED: MSIR30TA PO (10:26)
[2018-09-24] MEDS ORDERED: AVAP150T31 PO (10:26)
[2018-09-24] MEDS ORDERED: LIDO5OIN19 TOP (10:26)
[2018-09-24] MEDS ORDERED: CELE100C PO (10:26)
[2018-09-24] MEDS ORDERED: DEXA4TA PO (10:26)
[2018-09-24] MEDS ORDERED: NYST50SS SS (10:26)
[2018-09-24] MEDS ORDERED: MORP15TASA PO (10:26)
--- NOTE | 2018-09-24 11:14 | DSES ---
DATE OF ADMISSION: 09/20/2018 DATE OF DISCHARGE: 09/24/2018 BRIEF HISTORY AND PHYSICAL: The patient is an 82-year-old patient with a history of bladder cancer diagnosed in March 2017, refused chemotherapy, underwent robotic-assisted radical cystectomy and total hysterectomy with bilateral salpingo-oophorectomy and bilateral extended lymph node dissection, intracorporeal ileoconduit and urinary diversion creation in April 2017. Developed metastatic pulmonary nodules, diagnosed by biopsy in June 2018. On immunotherapy, started in July 2018, managed by Dr. Whitehead at the [facility]. Has a history of chronic T12-L5 disc bulging, status post laminectomy in 1999 and L5 nerve compression seen on 08/26/2018 imaging with an MRI. Presented to the emergency room with 6-week history of worsening low back pain, unable to get to an appointment with [facility]. Pain was described as 10/10. Unable to ambulate without falling. Came to the emergency room. She also had blood in her urostomy over the past couple of weeks. PAST MEDICAL HISTORY: As above. She has a history of previous lower gastrointestinal (GI) bleed. She is a cigarette smoker. Gastroesophageal reflux disease, hypertension, hyperlipidemia, peripheral neuropathy, osteoporosis, SSA, SSB positive, high-grade urethral carcinoma, as above. PERTINENT LABORATORIES ON ADMISSION: MRI of the thoracic spine showed bony destructive lesion at T11 with pathologic fracture, retropulsion, ventral epidural disease, and moderate cord compression, and central canal stenosis, metastatic lesion most likely, primary bone lesion such as a plasmocytoma may have this appearance, as well. There was old wedge compression deformities in T9 which are mild and thoracic disc protrusions at T6-7 and T7-8. Sodium 140, potassium 4.4, BUN 24, creatinine 0.68. WBC 7.4, hemoglobin 10.2, platelets 267,010. Sedimentation rate was 106. Alkaline phosphatase 173, CRP 10.7. Urine culture grew Escherichia (E.) coli and Enterococcus faecalis. HOSPITAL COURSE: The patient was admitted for a pathological T11 compression fracture. Oncology and radiation oncology were consulted. She was started on dexamethasone per radiation oncology and started radiation therapy. She remains on dexamethasone and will need to have this weaned and would defer this to radiation oncology, as Dr. Guerrero had said that at some point he would wean this. I would have a conversation with him once he is at the correction to determine when to start this weaning process. In the meantime, she is using oral morphine for pain. She has a thoracolumbosacral orthosis (TLSO) brace prescribed by orthopedics and is getting physical therapy. Constipation due to opioid therapy. She is getting aggressive bowel regimen, and I do not see any bowel movements documented since she came in other than one, but perhaps she has had bowel movements that the staff is not aware of. Could consider Movantik if her constipation persists. History of bladder cancer. Will defer this to oncology. Hypertension. Blood pressure is stable on irbesartan. Blood pressure was high earlier in the admission, likely due to pain. The patient had a urinary tract infection and was treated with nitrofurantoin. DISPOSITION: The patient is stable for discharge to [facility]. MEDICATIONS: calcium carbonate 500 mg every 6 hours as needed for indigestion, Celebrex 100 mg twice a day, dexamethasone 4 mg every 6 hours. She will need this weaned per radiation oncology. Diphenhydramine 50 mg at bedtime, irbesartan 300 mg daily, topical lidocaine at the lumbar area of pain four times a day, morphine sulfate ER 15 mg twice a day, morphine sulfate 7.5 mg four times a day as needed, nystatin swish and swallow every 6 hours, senna one tablet twice a day as needed, simethicone 80 mg every 6 hours as needed, tizanidine 2 mg three times a day, Tylenol Extra Strength 1000 mg three times a day, atenolol 50 mg at bedtime, Colace 200 mg twice a day as needed, Nexium 40 mg daily, MiraLAX 17 grams daily, Crestor 20 mg at bedtime, vitamin D 1000 international units daily. DISCHARGE DIAGNOSES: 1. Pathological fracture to T11. 2. Metastatic bladder cancer. 3. Constipation due to opioid therapy. 4. Hypertension. 5. Urinary tract infection (UTI).
[2018-09-24] MEDS: MORPHINE 30 MG TAB **MSIR PO PRN (11:30)
== END 2018-09-24 11:42 | DRG 543 ==
LOC: M ED 09:28 → EDBD 09:28 → M ED INP 14:32 → M MS4PR 17:58 → M MSPAV 09-12 14:51
PROVIDERS: ADMIT General Practice; ATTEND Family Medicine
DX: M84.58XA Pathological fracture in neoplastic disease, other specified site, initial encounter for fracture (principal); C78.00 Secondary malignant neoplasm of unspecified lung; N39.0 Urinary tract infection, site not specified; M51.26 Other intervertebral disc displacement, lumbar region; K21.9 Gastro-esophageal reflux disease without esophagitis; I10 Essential (primary) hypertension; E78.5 Hyperlipidemia, unspecified; M48.061 Spinal stenosis, lumbar region without neurogenic claudication; T40.2X5A Adverse effect of other opioids, initial encounter; G62.9 Polyneuropathy, unspecified; M81.0 Age-related osteoporosis without current pathological fracture; K59.09 Other constipation; B96.20 Unspecified Escherichia coli [E. coli] as the cause of diseases classified elsewhere; D53.9 Nutritional anemia, unspecified; Z87.891 Personal history of nicotine dependence; Z93.6 Other artificial openings of urinary tract status; Z85.51 Personal history of malignant neoplasm of bladder; Z90.710 Acquired absence of both cervix and uterus; Z90.722 Acquired absence of ovaries, bilateral; Z79.899 Other long term (current) drug therapy; Z88.2 Allergy status to sulfonamides; Z88.8 Allergy status to other drugs, medicaments and biological substances

== ENCOUNTER 2018-09-20 14:30 | Outpatient (RCR) | payer MEDICARE, OTHER ==
--- NOTE | 2018-09-12 08:27 | HPE ---
DATE OF ADMISSION: CHIEF COMPLAINT: Back pain. HISTORY OF PRESENT ILLNESS: This is an 82-year-old female seen today at [facility] in [facility]. She had presented to hospital apparently a little over a week ago with back pain. Her pain was controlled at that point and she was sent home. She lives at home with her grandson. She came back in the hospital yesterday with again complaints of back pain. Looking back in her notes this has been going on since at least July of this year at least a 6 weeks ago. She relates an incident abut 3 weeks ago she was potting some patio tomatoes and experienced pain in her back the next day. She was not having any neurologic symptoms. She is able to walk ambulate normally. No leg pain. No radicular symptoms. No numbness or tingling or weakness in the lower extremities. No perianal numbness. No loss of bowel or bladder function. She feels like she is more constipated which looks like it was an issue also 6 weeks ago due to excessive narcotic consumption related to the pain. PAST MEDICAL HISTORY: Significant for GI bleed lower GI bleed, impacted stool, pancreatitis nicotine dependence anemia, hypertension, chronic constipation, recurrent UTI, hypokalemia, hypomagnesemia, history of bladder cancer (urothelial CA), constipation, low back pain. MEDICATIONS: Includes dexamethasone and Senokot, MiraLAX, pantoprazole, Macrobid, atenolol, gabapentin, rosuvastatin, tizanidine docusate ondansetron, magnesium oxide, vitamin D ALLERGIES: Sulfa medications and prednisone. PAST SURGICAL HISTORY: Endoscopic biopsy large intestine, resection of bladder percutaneous endoscopic approach for a urothelial CA plus resection of pelvis lymphatic uterus, bilateral ovaries bilateral fallopian tubes, cervix. Bypass a bilateral ureters to illocution robotic-assisted procedure for urothelial CA. SOCIAL HISTORY: She is a nonsmoker, does not consume alcohol. She lives apparently at home and somewhat independently with assistance from her grandson. She ambulates well without a walker or assistive devices. PHYSICAL EXAMINATION: Vital signs: Blood pressure 145 and 71. Pulse rate 70. Temperature 96.5. Resp rate 18. 96% on room air. She is alert and oriented times three. She responds appropriately. Mood and affect is good. Inspection of the lumbar spine reveals some mild to moderate kyphosis in the thoracic spine. There is no obvious scoliosis. No sacral ulcer or other cutaneous lesions. There is no obvious pain to palpation in midline. Some mild tenderness to the left lateral side approximately in the T10-T11 region. No perianal numbness. Normal sensation from L2 to S1. Good strength in the aforementioned nerve roots as well as 5/5 in the lower extremities. Reflex is asymmetric at the knees and ankles. Plantars downgoing bilaterally. No clonus. Negative straight leg raise test on either side. Feet are warm well perfused with strong tibialis posterior pulse. CT scan was reviewed of her thoracic lumbar spine. This shows T12 compression burst fracture slight retropulsion at T12 and height loss of kyphosis. MRI of her thoracic spine was also reviewed. This shows hypertensive compressive fracture of T12 with retropulsion narrowing of the spinal canal of approximately 50% without cord deformity or abnormal signal. There is ligamentum hypertrophy slightly at that level as well. There is no cord signal change that I appreciate on these images. ASSESSMENT/PLAN: This 89-year-old female with history of urothelial CA and new compression fracture with some retropulsion but without as spinal cord involvement. The next best step at this point would be to get an opinion from a spine surgeon. I will speak with Dr. Cuadra the spine surgeon at [facility] with regards to this pleasant 82-year old female in regards to management. For now she can be weightbearing as tolerated. In addition, I would recommend consultation with her medical oncologist as well as well as radiation oncologist while she is in the hospital as well as potentially pain management consult as well as multidisciplinary approach will be best.
--- NOTE | 2018-09-13 09:45 | RADONC ---
RADIATION ONCOLOGY CONSULTATION DATE: 09/11/2018 CHART NUMBER: [id number] DIAGNOSIS: Bladder cancer. STAGE: IV, metastatic. ECOG PERFORMANCE STATUS: 4 CONSULTATION NOTE: Ms. Guy is an 82-year-old white female with the diagnosis of metastatic bladder carcinoma who is presenting to us today with what appears to be a cord compression involving the T11 vertebral body area. 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 On 04/2017 the patient underwent cystectomy and pathology again revealed a high-grade poorly differentiated carcinoma measuring greater than 4 cm. It invaded into the deep muscle and focally perivesicular fat. A total of 19 right pelvic lymph nodes were sampled and were negative for malignancy and a total of 11 left pelvic lymph nodes were sampled were negative for malignancy. The carcinoma involved all sections of the bladder accept one area of the left anterior wall. The patient was seen by medical oncology and has been under their care, but recently was found to have a lung nodule. On 07/01/2018 the patient underwent a left lower lobe core biopsy of her lung nodule. Pathology revealed poorly differentiated carcinoma consistent with her bladder tumor. More recently the patient has been having significant back pain and an MRI done on 09/11/2018 revealed signal intensity throughout the posterior three-quarters of the T11 vertebral body consistent with bony destructive neoplastic lesion. The lesion extended into both pedicles. There was pathologic collapse with approximately 40% loss in the vertebral body height. There was retropulsion of the posterior cortex of the T11 vertebral body and there is epidural soft tissue along the ventral epidural space of the upper portion of T12 to the lower portion of T10. This resulted in moderate compression of the lower thoracic spinal cord and dorsal displacement of the cord. There were old minimal anterior wedge compression deformities at the T9 vertebral body as well. The patient is now an inpatient at this institution is being referred to me for consideration of palliative radiation therapy to her vertebral spinal column. PAST MEDICAL HISTORY: The patient's past medical history is positive for GERD, hypertension, hyperlipidemia, lower gastrointestinal bleed, total abdominal hysterectomy and bilateral salpingo-oophorectomy, radical cystectomy, osteoporosis, peripheral neuropathy, chronic constipation, macrocytic mild anemia and pancreatitis. In addition, the patient had a laminectomy done in the year 1999. SOCIAL HISTORY: The patient had smoked one pack of cigarettes per day for 20 years. She denies alcohol abuse. FAMILY HISTORY: The patient's family history is positive for a mother with breast cancer and a brother with breast cancer. ALLERGIES: The patient is allergic to SULFA drugs. REVIEW OF SYSTEMS: The patient's review of systems is positive for significant back pain and anorexia. She does not report any neurological problems. PHYSICAL EXAMINATION: The patient is a chronically ill, cachectic white female who is presenting in a stretcher. HEENT exam is normocephalic, atraumatic. Extraocular movements are intact. There is no palpable cervical, supraclavicular, infraclavicular or axillary lymphadenopathy present. Her lungs are clear to auscultation and percussion. Heart has regular rate and rhythm. Her abdomen is benign with no hepatosplenomegaly, masses or tenderness. Extremities reveal no clubbing, cyanosis or edema. Neurologic exam is grossly intact to sensory and motor. Range of motion is limited secondary to her pain. ASSESSMENT: Clearly the patient is a candidate for palliative radiation therapy and I have so informed her. I have discussed with the patient in detail the potential benefits as well as possible acute and chronic sequelae of external beam radiation therapy. We discussed the logistics of treatment planning, simulation and subsequent fractionated daily radiation treatments. I have scheduled the patient for simulation today and we will be treating the patient today to her vertebral bodies from the levels of T8 through L1. The patient is not yet on Decadron and I have called Dr. Sandeep Culp, her attending, and asked him to initiate Decadron as soon as possible. I am concerned that there may be some additional swelling following her initial fraction of radiation which can increase her pain and indeed may cause neurological symptoms if she is not on steroids. Thank you for allowing us to participate in the care of this very pleasant woman. If I could be of any further assistance, please feel free to contact me at anytime. cc: MD Sandeep Brito MD
--- NOTE | 2018-09-17 10:59 | RADONC ---
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 Her current dose is 1200 cGy of an anticipated 3000 cGy to the thoracolumbar spine. The patient has noticed a great deal of pain. Most recently and has not had a significant amount of pain relief yet. REVIEW OF SYSTEMS: She denies any significant nausea, vomiting, coughing, sputum production, hemoptysis, diarrhea or blood per rectum. Her energy level is diminished and she is fairly disabled because of her pain. She reports no skin irritation. The remainder of the review of systems is essentially unchanged. EXAMINATION FINDINGS: The patient is lying in a gurney and has a significant amount of pain requiring Percocet. Her energy level is diminished. There is no evidence of any skin irritation or outward manifestations of her treatment. The remainder of the physical examination is unchanged. IMPRESSION: Tolerating therapy well. PLAN: Treatments to continue.
[~2018-09-20 14:30] MED LIST changes: +ACET-897 PO; +LIDO1PAD TOP; +MAGN400T PO; -PANTOPRAZOLE 40MG TAB (PROTONIX) PO SCH; +TECE1200 IV; +TIZA2TA PO; +VITAD1000T PO
== END 2018-09-22 ==
LOC: M ONCR 14:30
PROVIDERS: ATTEND Radiology Radiation Oncology
DX: C79.51 Secondary malignant neoplasm of bone (principal); C67.9 Malignant neoplasm of bladder, unspecified

== ENCOUNTER 2018-09-24 14:30 | Outpatient (RCR) | payer MEDICARE, OTHER ==
--- NOTE | 2018-09-24 07:02 | RADONC ---
RADIATION ONCOLOGY PROGRESS NOTE DATE: 09/23/2018 CHART #: [id number] Mrs. 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 She appears to be tolerating her radiotherapy reasonably well and today says she has significant improvement of her pain. REVIEW OF SYSTEMS: She denies any significant nausea or vomiting. She does experience some dyspepsia and pain in her oral cavity. She feels that her tongue has the feeling of sandpaper and significant discomfort. She denies any significant nausea, vomiting, coughing, sputum production or hemoptysis. Her energy level is understandably diminished. EXAMINATION FINDINGS: Examination of the oral cavity reveals hyper erythematous mucous membranes with some whitish small areas consistent with an early oral candidiasis. Lymphatics: No palpable peripheral lymphadenopathy is appreciated. Skin: Without evidence of significant erythema and no focal desquamation is appreciated. The remainder of the physical examination is unchanged. IMPRESSION: Tolerating therapy well. PLAN: Treatments to continue. MTDD
[~2018-09-24 14:30] MED LIST changes: +AVAP150T31 PO; +CALC200T15 PO; +CELE100C PO; +CHOL100029 PO; +DEXA4TA PO; +DIPH50CA PO; +LIDO5OIN19 TOP; -MAGN400T PO; +MAGN400T3 PO; +MORP15TASA PO; +MSIR30TA PO; +NYST50SS SS; +ONDA-83 PO; -ONDA4TAB5 PO; +SENN-52 PO; +SIME80TA PO; +TIZA4TAB4 PO; -VITAD1000T PO
--- NOTE | 2018-09-25 13:47 | RADONC ---
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 PLAN OF RADIOTHERAPY: Palliative. DATE RADIOTHERAPY STARTED: September 11, 2018 DATE RADIOTHERAPY COMPLETED: September 24, 2018 DOSE: The patient received a total of 3000 cGy administered in 10 fractions over 13 elapsed days. She was treated utilizing a single portal assessed at the 98% isodose line 100 cm SSD. Prior to treatment delivery, localization was accomplished upon our CT simulator and treatment portals were defined by the use of multiple leaf collimators. STATUS OF TUMOR: The patient had an excellent clinical response to her local regional radiotherapy thereby defining her overall clinical response. TOLERANCE: In general, treatments were well tolerated. She denied any significant nausea, vomiting, diarrhea, dysuria, hematuria, blood per rectum or other issues. DISPOSITION: We would like her to return to our clinic in approximately 1 month or p.r.n. and she was advised to return to her referring physicians as per their directions and instructions. Thank you for referring this adriana lady to us and allowing us the opportunity of participation in her overall management. cc: TAWANA Rodriguez MD Joseph F. Wetterhahn, MD
[2018-09-27] MEDS ORDERED: MAGICMW SSP (12:47)
[2018-09-28] MEDS ORDERED: GABA-845 PO (16:02)
[2018-09-28] MEDS ORDERED: GABA-1171 PO (16:02)
[2018-09-28] MEDS ORDERED: GABA-843 PO (17:57)
[2018-09-28] MEDS ORDERED: TIZA2TA PO (17:57)
[2018-09-28] MEDS ORDERED: RAMI1CAP24 PO (17:58)
[2018-09-28] MEDS ORDERED: AMIL25TA PO (18:00)
[2018-10-03] MEDS ORDERED: DIFL200T PO (08:30)
[2018-10-03] MEDS ORDERED: MORP1SOL3 SL (08:30)
[2018-10-03] MEDS ORDERED: ONDA4TAB6 PO (08:30)
== END 2018-10-23 ==
LOC: M ONCR 14:30
PROVIDERS: ATTEND Radiology Radiation Oncology
DX: C79.51 Secondary malignant neoplasm of bone (principal); C67.9 Malignant neoplasm of bladder, unspecified

== ENCOUNTER 2018-09-28 15:43 | Inpatient (IN) | payer MEDICARE, OTHER ==
[~2018-09-28] VITALS: Ht 154.9 cm; Wt 47.7 kg
[~2018-09-28 15:43] MED LIST changes: -CHOL100029 PO; +MAGICMW SSP; +MAGN400T PO; -MAGN400T3 PO; -ONDA-83 PO; +ONDA4TAB5 PO; +VITAD1000T PO
[2018-09-28] MEDS ORDERED: SUCRALFATE SUSP 1GM/10ML UD PO ONE (16:00)
[2018-09-28] MEDS ORDERED: NS 1,000 ML IV SCH (16:00)
[2018-09-28] MEDS ORDERED: NS 500 ML IV ONE (16:00)
[2018-09-28] MEDS ORDERED: GABA-1171 PO (16:02)
[2018-09-28] MEDS ORDERED: GABA-845 PO (16:02)
[2018-09-28 16:29] LABS: BASO % 0.3 % (0.0-1.0); EOS # 0.1 10^3/uL (0.0-0.50); EOS % 0.6 % (0.0-3.0); HEMOGLOBIN 12.4 g/dl (12.0-15.5); LYMPH % 1.8 % (24.0-44.0); MEAN CORPUSCULAR HEMOGLOBIN 33.6 pg (27.0-33.0); MEAN CORPUSCULAR HGB CONC 31.8 g/dl (32.0-36.5); MEAN CORPUSCULAR VOLUME 105.7 fl (80.0-96.0); MONO # 0.6 10^3/uL (0.0-0.8); MONO % 7.2 % (0.0-5.0); NEUTROPHILS # 7.9 10^3/uL (1.8-7.7); NEUTROPHILS % 87.8 % (36.0-66.0); PLATELET COUNT, AUTOMATED 195 10^3/uL (150-450); RED BLOOD COUNT 3.69 10^6/uL (4.00-5.40)
[2018-09-28 16:52] LABS: ALBUMIN 3.2 GM/DL (3.2-5.2); ALT/SGPT 14 U/L (12-78); BILIRUBIN,TOTAL 0.8 MG/DL (0.2-1.0); BLOOD UREA NITROGEN 84 MG/DL (7-18); CALCIUM LEVEL 8.8 MG/DL (8.8-10.2); CARBON DIOXIDE LEVEL 22 MEQ/L (21-32); CHLORIDE LEVEL 109 MEQ/L (98-107); CREATININE FOR GFR 1.47 MG/DL (0.55-1.30); GLOMERULAR FILTRATION RATE 36.4 (>32); GLUCOSE, FASTING 89 MG/DL (70-100); POTASSIUM SERUM 5.8 MEQ/L (3.5-5.1); SODIUM LEVEL 141 MEQ/L (136-145); TOTAL PROTEIN 6.5 GM/DL (6.4-8.2)
[2018-09-28 17:01] LABS: LYMPH # 0.2 10^3/uL (1.5-4.5)
[2018-09-28 17:25] LABS: CK-MB VALUE MASS < 1.0 NG/ML (<3.6); CPK CREATINE PHOSPHOKINASE 32 U/L (26-192); MB/CK RELATIVE INDEX 3.12 (< OR =4); TROPONIN I < 0.02 NG/ML (< 0.10)
[2018-09-28] MEDS ORDERED: GABA-843 PO (17:57)
[2018-09-28] MEDS ORDERED: TIZA2TA PO (17:57)
[2018-09-28] MEDS ORDERED: RAMI1CAP24 PO (17:58)
[2018-09-28] MEDS ORDERED: AMIL25TA PO (18:00)
[2018-09-28] MEDS: NYSTATIN 500,000 U/5 ML SUSP UDC SS SCH (18:00)
--- NOTE | 2018-09-28 18:11 | HPEPDOC ---
[facility] Medical History & Physical Date of Admission Sep 28, 2018 Date of Service: Sep 28, 2018 History and Physical CHIEF COMPLAINT: painful swallowing, poor po intake, dehydration HISTORY OF PRESENTING ILLNESS: Pt is 82 y/o F who was admitted on September 09 to [facility] with PMHx as follows and discharged to [facility] on September 24 , pt decided to go home from [facility] next day, she was at home for 4 days and today presented to ED due to not able to swallow secondary to severe odynophagia and dysphagia. Pt last BM normal yesterday AM. No change in her ostomy drainages. Pt also reports severe 8/10 low back pain with no radiation. Upon my encounter she is awake alert and oriented at bedside. Denies any dyspnea tachypnea. Denies any CP. Pt with very poor po intake during the past week. Pt states she has appetite however afraid of eating due to pain. ED Course: Pt with SBP 90-100/ DBP 50. HR 50s. Afebrile. CXR and UA pending. Cr. 1.5 from her baseline 0.6, hyperkalemia not a hemolyzed sample no EKG changes. PAST MEDICAL HISTORY: 1-Bladder cancer diagnosed by Dr. Lunsford 04/12, refused chemo 2-Metastatic pulmonary nodule diagnosed by biopsy in 06/2018 3-currently on immunotherapy which was started in 08/11 ,managed by at the [facility] 4-chronic T12-L5 disc bulges, laminectomy in 1999, and L5 nerve compression seen on 08/26/2018 MRI lumbar spine 5-Lower gastrointestinal (GI) bleed 6-nicotine dependence 7-gastroesophageal reflux disease (GERD) 8-hypertension 9-hyperlipidemia 10-peripheral neuropathy 11-osteoporosis 12-SSA/SSB positive, 13-chronic constipation 14-macrocytic anemia, 15-pancreatitis 2017 admitted to [facility] PAST SURGICAL HISTORY: robotic assisted radical cystectomy, total hysterectomy, b/l salpingo- oophorectomy, b/l extended LN dissection, intracorporeal ileoconduit and urina ry diversion creation in 05/13 lumbar laminectomy 1999, , pulmonary nodule biopsy 07/12,EGD colonoscopy 2013 Dr. Pollard. SOCIAL HISTORY: previous smoker, 1ppd x 20 years, denies ETOH use, lives with . retired. FAMILY HISTORY: Father at the age of 56 in an MVA. Her mother at the age of 43 due to breast cancer. She has a brother who is 76, due to CHF, diabetes mellitus, breast cancer. A brother who is 80, type 2 diabetes. A son who is currently alive and well. One daughter who has history of Crohn's disease. HOME MEDICATIONS: PLS SEE BELOW ALLERGIES: TRIMETHOPRIM-SULFAMETHOXAZOLE (TMP/SMX). did not note allergy to prednisone on history during the patient's admission. REVIEW OF SYSTEMS: negative 10 point systems review,aside from positive findings on HPI. PHYSICAL EXAMINATION: VITALS: pls see below GENERAL: frail cachectic appearing female in no acute distress AAOx3 HEENT: PERRLA EOMI poor dentition moist mucus membranes no cervical adenopathy or thyromegaly no carotid bruits Heart: S1S2 RRR no murmurs noted Lungs:no wheezing, rales, or rhonchi, good air entry Abdomen: soft nontender non distended. ileal conduit with urinary diversion with yellow urine and no blood Extremities: no cyanosis, clubbing, or edema Neuro: motor sensory grossly intact LABORATORY DATA, IMAGING STUDIES, MICROBIOLOGY: PLS SEE BELOW Vital Signs Date Time Temp Pulse Resp B/P (MAP) Pulse Ox O2 Delivery O2 Flow Rate FiO2 09/28/18 18:00 88/52 (64) 09/28/18 17:58 49 93 09/28/18 17:45 104/54 (71) 09/28/18 17:43 53 93 09/28/18 17:30 104/51 (68) 09/28/18 17:28 49 96 09/28/18 17:13 51 96 09/28/18 16:58 48 96 09/28/18 16:45 97/55 (69) 09/28/18 16:43 49 96 09/28/18 16:31 126/59 (81) 09/28/18 16:28 52 95 09/28/18 16:24 84/52 (63) 09/28/18 16:13 53 95 09/28/18 16:00 97/53 (68) 09/28/18 15:58 53 97 09/28/18 15:52 97.3 55 20 98/50 (66) 97 Room Air 09/28/18 15:50 98/50 (66) Laboratory Tests 09/28/18 16:24: White Blood Count 9.0, Red Blood Count 3.69L, Hemoglobin 12.4, Hematocrit 39.0, Mean Corpuscular Volume 105.7H, Mean Corpuscular Hemoglobin 33.6H, Mean Corpuscular Hemoglobin Concent 31.8L, Red Cell Distribution Width 13.3, Platelet Count 195, Neutrophils (%) (Auto) 87.8H, Lymphocytes (%) (Auto) 1.8L, Monocytes (%) (Auto) 7.2H, Eosinophils (%) (Auto) 0.6, Basophils (%) (Auto) 0.3, Neutrophils # (Auto) 7.9H, Lymphocytes # (Auto) 0.2L, Monocytes # (Auto) 0.6, Eosinophils # (Auto) 0.1, Basophils # (Auto) 0.0, Immature Granulocyte % (Auto) 2.3, Nucleated Red Blood Cells % (auto) 0.0, Blood Urea Nitrogen 84H, Creatinine 1.47H, Sodium Level 141, Potassium Level 5.8H, Chloride Level 109H, Carbon Dioxide Level 22, Calcium Level 8.8, Aspartate Amino Transf (AST/SGOT) 14, Alanine Aminotransferase (ALT/SGPT) 14, Total Creatine Kinase 32, Alkaline Phosphatase 114, Total Bilirubin 0.8, Total Protein 6.5, Albumin 3.2, Anion Gap 10, Glomerular Filtration Rate 36.4, Fasting Glucose 89, Creatine Kinase MB < 1.0, Creatine Kinase MB Relative Index 3.12, Troponin I < 0.02, Albumin/Globulin Ratio 0.97L Current Medications Medications (Trade) Dose Ordered Sig/Gigi Route PRN Reason Start Time Stop Time Status Last Admin Dose Admin Sodium Chloride 1,000 ml @ 250 mls/hr Q4H IV 09/28/18 16:00 09/28/18 17:39 250 MLS/HR A/P 1-LUCAS sec to volume depletion sec to poor po intake/dehydration IVF NS 100ml/hr monitor BMP Strict I/O expect to improve with hydration 2-Hyperkalemia no EKG changes repeat BMP 3-Odynophagia/Dysphagia Swallow eval puree diet lidocaine mouth rinse 4-Intractable low back pain MRI lumbar spine 08/26/18: disc bulges T12 to L5 with mild central canal stenosis and L5 nerve compression. Due to worsening pain with knkown history of metastatic bladder ca to the lungs, repeat MRI of thoracic and lumbar spine to rule out metastasis. no signs of myelopathy. pain management and orthopedic surgery have been consulted per ortho, activity as tolerated with walker. PT consulted. fall precautions 5-Metastatic Bladder cancer to lungs diagnosed by Dr. Lunsford 04/12, refused chemo, underwent robotic assisted radical cystectomy, total hysterectomy, b/l salpingo-oophorectomy, b/l extended LN dissection, intracorporeal ileoconduit and urinary diversion creation in 05/13, developed metastatic pulmonary nodule diagnosed by biopsy in 06/2018 , currently on immunotherapy which was started in 08/11 6-GERD Famotidine BID DVT prophylaxis: Lovenox Vital Signs Vital Signs Date Time Temp Pulse Resp B/P (MAP) Pulse Ox O2 Delivery O2 Flow Rate FiO2 09/28/18 18:00 88/52 (64) 09/28/18 17:58 49 93 09/28/18 15:52 97.3 20 Room Air Laboratory Data Labs 24H Laboratory Tests 2 09/28/18 16:24: Immature Granulocyte % (Auto) 2.3, White Blood Count 9.0, Red Blood Count 3.69L, Hemoglobin 12.4, Hematocrit 39.0, Mean Corpuscular Volume 105.7H, Mean Corpuscular Hemoglobin 33.6H, Mean Corpuscular Hemoglobin Concent 31.8L, Red Cell Distribution Width 13.3, Platelet Count 195, Neutrophils (%) (Auto) 87.8H, Lymphocytes (%) (Auto) 1.8L, Monocytes (%) (Auto) 7.2H, Eosinophils (%) (Auto) 0.6, Basophils (%) (Auto) 0.3, Neutrophils # (Auto) 7.9H, Lymphocytes # (Auto) 0.2L, Monocytes # (Auto) 0.6, Eosinophils # (Auto) 0.1, Basophils # (Auto) 0.0, Nucleated Red Blood Cells % (auto) 0.0, Anion Gap 10, Glomerular Filtration Rate 36.4, Blood Urea Nitrogen 84H, Creatinine 1.47H, Sodium Level 141, Potassium Level 5.8H, Chloride Level 109H, Carbon Dioxide Level 22, Calcium Level 8.8, Aspartate Amino Transf (AST/SGOT) 14, Alanine Aminotransferase (ALT/SGPT) 14, Total Creatine Kinase 32, Alkaline Phosphatase 114, Total Bilirubin 0.8, Total Protein 6.5, Albumin 3.2, Creatine Kinase MB < 1.0, Creatine Kinase MB Relative Index 3.12, Troponin I < 0.02, Albumin/Globulin Ratio 0.97L CBC/BMP Laboratory Tests 09/28/18 16:24 Red Blood Count 3.69 L, Mean Corpuscular Volume 105.7 H, Mean Corpuscular Hemoglobin 33.6 H, Mean Corpuscular Hemoglobin Concent 31.8 L, Red Cell Distribution Width 13.3, Neutrophils (%) (Auto) 87.8 H, Lymphocytes (%) (Auto) 1.8 L, Monocytes (%) (Auto) 7.2 H, Eosinophils (%) (Auto) 0.6, Basophils (%) (Auto) 0.3, Neutrophils # (Auto) 7.9 H, Lymphocytes # (Auto) 0.2 L, Monocytes # (Auto) 0.6, Eosinophils # (Auto) 0.1, Basophils # (Auto) 0.0, Calcium Level 8.8, Aspartate Amino Transf (AST/SGOT) 14, Alanine Aminotransferase (ALT/SGPT) 14, Total Creatine Kinase 32, Alkaline Phosphatase 114, Total Bilirubin 0.8, Total Protein 6.5, Albumin 3.2 Home Medications Scheduled Amiloride HCl (Amiloride HCl) 5 Mg Tablet, 5 MG PO DAILY Atenolol (Atenolol) 50 Mg Tablet, 50 MG PO QHS Diphenhydramine HCl (Diphenhydramine HCl) 50 Mg Capsule, 50 MG PO QHS Esomeprazole Magnesium (Nexium) 40 Mg Capsule.dr, 40 MG PO DAILY Gabapentin (Gabapentin) 300 Mg Capsule, 300 MG PO TID Magnesium Oxide (Magnesium Oxide) 400 Mg Tablet, 400 MG PO DAILY Nystatin (Nystatin Oral Susp) 100,000 Unit/1 Ml Oral.susp, 5 ML SS Q6H Ramipril (Ramipril) 5 Mg Capsule, 5 MG PO BID Rosuvastatin Calcium (Crestor) 20 Mg Tablet, 20 MG PO QHS Vitamin D (Vitamin D3) 1,000 Unit Tablet, 1,000 UNITS PO DAILY Scheduled PRN Acetaminophen (Tylenol Extra Strength) 500 Mg Tablet, 1,000 MG PO TID PRN for PAIN / FEVER Docusate Sodium (Colace) 100 Mg Capsule, 200 MG PO BID PRN for CONSTIPATION Lidocaine (Lidocaine) 5% Adh..patch, 1 PATCH TOP DAILY PRN for PAIN APPLY TO LOWER BACK. PT NEEDS NEW SCRIPT Magic Mouthwash (First-Mouthwash Blm) 1 Ea Susp, 10 ML SSP QID PRN for MUCOSITIS (Diphenhydramine/maalox/lidocaine 1:1:1) May compound if kit unavailable/not covered by insurance Ondansetron HCl (Ondansetron HCl) 4 Mg Tablet, 4 MG PO Q8H PRN for NAUSEA OR VOMITING Polyethylene Glycol 3350 (Miralax) 119 Gm Powder, 17 GM PO DAILY PRN for CONSTIPATION Tizanidine HCl (Tizanidine HCl) 2 Mg Tablet, 2 MG PO TID PRN for PAIN Allergies Coded Allergies: Sulfa (Sulfonamide Antibiotics) (Verified Allergy, Unknown, 08/07/18) prednisone (Verified Adverse Reaction, Mild, FACIAL FLUSHING, 08/07/18) A-FIB/CHADSVASC A-FIB History Current/History of A-Fib/PAF?: MARK Mckeon MD Sep 28, 2018 18:11
--- NOTE | 2018-09-28 18:35 | ECGEPIP ---
[facility] - ED Test Date: 2018-09-28 Pat Name: JAYESH ANTOINE Department: Room: - Gender: Female Web Marketing Assistant: : 1935 Requested By: Michelle Leone Order Number: [id number] Reading MD: Michelle Leone Measurements Intervals Lena Rate: 50 P: 45 SC: 156 QRS: 10 QRSD: 81 T: 58 QT: 442 QTc: 406 Interpretive Statements SINUS BRADYCARDIA POSSIBLE RIGHT VENTRICULAR CONDUCTION DELAY MODERATE T-WAVE ABNORMALITY, CONSIDER ANTERIOR ISCHEMIA, COMPARISON 04/12/17 Electronically Signed on 09-28-2018 18:34:56 EDT by Michelle Leone
[2018-09-28] MEDS ORDERED: DOCUSATE SODIUM 100 MG CAP PO PRN (18:45)
[2018-09-28] MEDS: NS 1,000 ML IV SCH (18:45)
[2018-09-28] MEDS ORDERED: MAGIC MOUTHWASH SUSPENSION BTL SSP PRN (18:45)
[2018-09-28] MEDS ORDERED: MIRALAX *UNIT DOSE* 17GM PACKET PO PRN (18:45)
--- NOTE | 2018-09-28 19:47 | REP ---
Clinical: Cough. Technique: AP and lateral. Comparison: 04/12/2017. Findings: Mediastinum and cardiac silhouette are stable. Lung gauthier demonstrate diffuse chronic interstitial changes with suspected chronic linear fibroatelectatic change at the left lower lung zone. No focal consolidation. No effusion. No pneumothorax. Skeletal structures demonstrate osteopenia and degenerative changes. Impression: Chronic changes. No obvious acute consolidation or effusion. Electronically Signed by Seamus Shi MD 09/28/2018 07:38 P
[2018-09-28] MEDS: MORPHINE 4 MG/ML 1ML VIAL/SYRINGE (J2270) IV PRN (19:48)
[2018-09-28 20:06] LABS: CALCIUM LEVEL 8.3 MG/DL (8.8-10.2); CREATININE FOR GFR 1.13 MG/DL (0.55-1.30); GLOMERULAR FILTRATION RATE 49.3 (>32); POTASSIUM SERUM 5.2 MEQ/L (3.5-5.1)
[2018-09-28 20:20] VITALS: BP 93/54
[2018-09-28] MEDS: FAMOTIDINE IV BAG 20 MG in APPROPRIATE DILUENT 1 EA IV SCH (20:57)
[2018-09-28 21:00] VITALS: BP 87/51
[2018-09-28] MEDS: diphenhydrAMINE 50 MG CAP PO SCH (21:00)
[2018-09-28] MEDS: ROSUVASTATIN 10 MG TAB (CRESTOR) PO SCH (21:00)
[2018-09-28] MEDS: ATENOLOL 50 MG TAB PO SCH (21:00)
[2018-09-28] MEDS: ENOXAPARIN 30 MG/0.3 ML SYR (J1650) SC SCH (21:42)
[2018-09-29] MEDS: NYSTATIN 500,000 U/5 ML SUSP UDC SS SCH ×4 (00:40→17:29)
[2018-09-29] MEDS: NS 1,000 ML IV SCH ×3 (00:41→21:26)
[2018-09-29 00:45] VITALS: BP 118/59
[2018-09-29] MEDS: MORPHINE 4 MG/ML 1ML VIAL/SYRINGE (J2270) IV PRN ×4 (00:46→20:02)
[2018-09-29 06:00] VITALS: BP 116/55
[2018-09-29] MEDS: ACETAMINOPHEN 500 MG TAB PO PRN (06:10)
[2018-09-29] MEDS: ONDANSETRON 4 MG TAB (S0181) PO PRN (06:10)
[2018-09-29] MEDS: MAGNESIUM OXIDE 400 MG TAB (MAG-OX) PO SCH (09:00)
[2018-09-29] MEDS: VITAMIN D 1,000 INTERNATIONAL UNITS TABLET PO SCH (09:00)
[2018-09-29] MEDS: aMILoride 5 MG TAB PO SCH (09:11)
[2018-09-29 14:00] VITALS: BP 128/63
--- NOTE | 2018-09-29 17:13 | IPNPDOC ---
Subjective Date Seen The patient was seen on 09/29/18. Subjective Chief Complaint/HPI Patient is seen this afternoon with family at bedside. She reports good appetite, but that it hurts too much to eat. She has had only ice chips and a small portion of ice cream since arriving at the hospital. Constitutional: Reports: Malaise, Fatigue; Denies: Chills, Fever Pulmonary: Denies: Dyspnea, Cough Cardiovascular: Denies: Chest Pain, Palpitations Gastrointestinal: Denies: Nausea, Vomiting, Diarrhea, Constipation Musculoskeletal: Reports: Back Pain Objective Physical Examination General Exam: Positive: Alert, Cooperative, No Acute Distress, Other (appears chronically ill) Eye Exam: Negative: Sclera icteric Neck Exam: Positive: Supple Chest Exam: Positive: Clear to auscultation, Normal air movement Heart Exam: Positive: Rate Normal; Negative: Tachycardic Abdomen Exam: Positive: Normal bowel sounds, Soft; Negative: Tenderness Extremity Exam: Negative: Edema Neuro Exam: Positive: Normal Speech Psych Exam: Positive: Mental status NL Assessment /Plan Problems (1) Dysphagia Problem Text: This has been treated during her last hospitalization with nystatin swish and swallow, antacids, and Magic Mouthwash. Despite this, emmanuel yang is still complaining of persistent pain and difficulty swallowing. I ordered speech to eval and treat, and a barium swallow. She may benefit from endoscopy. (2) Poor fluid intake Problem Text: Most likely secondary to dysphagia, as above (3) Acute kidney injury Problem Text: Likely secondary to recent hot weather and decreased PO intake. Improved with IV hydration. (4) History of bladder cancer Status: Acute Problem Text: Family states that they would like to discuss with heme/onc during this admission, if possible. (5) Pathologic fracture Status: Chronic Problem Text: T11, secondary to metastatic bladder cancer (6) Chronic constipation Status: Chronic Problem Text: Narcotics contribute. She had a lot of trouble with constipation during her last admission; this will require monitoring. Plan/VTE VTE Prophylaxis Ordered?: Yes VS, I&O, 24H, Fishbone Vital Signs/I&O Vital Signs Date Time Temp Pulse Resp B/P (MAP) Pulse Ox O2 Delivery O2 Flow Rate FiO2 09/29/18 14:00 97.1 56 17 128/63 (84) 98 09/28/18 19:56 Room Air I&O- Last 24 Hours up to 6 AM 09/29/18 06:00 Intake Total 1620 ml Output Total 450 ml Balance 1170 ml Laboratory Data 24H LABS Laboratory Tests 2 09/28/18 19:32: Anion Gap 9, Glomerular Filtration Rate 49.3, Blood Urea Nitrogen 80H, Creatinine 1.13, Sodium Level 142, Potassium Level 5.2H, Chloride Level 113H, Carbon Dioxide Level 20L, Calcium Level 8.3L CBC/BMP Laboratory Tests 09/28/18 19:32 Calcium Level 8.3 L GERMAIN KINGSTON DO Sep 29, 2018 17:13
[2018-09-29] MEDS: diphenhydrAMINE 50 MG CAP PO SCH (20:01)
[2018-09-29] MEDS: ENOXAPARIN 30 MG/0.3 ML SYR (J1650) SC SCH (20:02)
[2018-09-29] MEDS: ATENOLOL 50 MG TAB PO SCH (20:03)
[2018-09-29] MEDS: ROSUVASTATIN 10 MG TAB (CRESTOR) PO SCH (20:03)
[2018-09-29 22:00] VITALS: BP 112/69
[2018-09-30] MEDS: ONDANSETRON 4 MG TAB (S0181) PO PRN (00:44)
[2018-09-30] MEDS: ACETAMINOPHEN 500 MG TAB PO PRN (01:07)
[2018-09-30 06:00] VITALS: BP 109/71
[2018-09-30] MEDS: NYSTATIN 500,000 U/5 ML SUSP UDC SS SCH ×4 (06:00→17:59)
[2018-09-30 06:03] LABS: HEMATOCRIT 30.8 % (36.0-47.0); MEAN CORPUSCULAR HEMOGLOBIN 33.1 pg (27.0-33.0); MEAN CORPUSCULAR HGB CONC 31.2 g/dl (32.0-36.5); MEAN CORPUSCULAR VOLUME 106.2 fl (80.0-96.0); PLATELET COUNT, AUTOMATED 143 10^3/uL (150-450); WHITE BLOOD COUNT 6.7 10^3/uL (4.0-10.0)
[2018-09-30 06:17] LABS: HEMOGLOBIN 9.6 g/dl (12.0-15.5)
[2018-09-30 06:35] LABS: ALBUMIN 2.4 GM/DL (3.2-5.2); ALT/SGPT 14 U/L (12-78); BILIRUBIN,TOTAL 0.5 MG/DL (0.2-1.0); BLOOD UREA NITROGEN 28 MG/DL (7-18); CALCIUM LEVEL 7.5 MG/DL (8.8-10.2); CARBON DIOXIDE LEVEL 18 MEQ/L (21-32); CHLORIDE LEVEL 117 MEQ/L (98-107); CREATININE FOR GFR 0.45 MG/DL (0.55-1.30); GLOMERULAR FILTRATION RATE > 60.0 (>32); GLUCOSE, FASTING 66 MG/DL (70-100); POTASSIUM SERUM 4.6 MEQ/L (3.5-5.1); SODIUM LEVEL 144 MEQ/L (136-145); TOTAL PROTEIN 5.5 GM/DL (6.4-8.2)
[2018-09-30] MEDS: FAMOTIDINE IV BAG 20 MG in APPROPRIATE DILUENT 1 EA IV SCH (07:41)
[2018-09-30] MEDS: NS 1,000 ML IV SCH ×2 (07:41→23:01)
[2018-09-30] MEDS: VITAMIN D 1,000 INTERNATIONAL UNITS TABLET PO SCH (09:00)
[2018-09-30] MEDS: MAGNESIUM OXIDE 400 MG TAB (MAG-OX) PO SCH (09:00)
[2018-09-30] MEDS ORDERED: E-Z-PAQUE 96% w/w SUSP 176GM BTL As Ordered ONE (09:11)
[2018-09-30] MEDS: MORPHINE 4 MG/ML 1ML VIAL/SYRINGE (J2270) IV PRN (09:46)
[2018-09-30] MEDS: aMILoride 5 MG TAB PO SCH (11:06)
--- NOTE | 2018-09-30 11:59 | IPNPDOC ---
Subjective Date Seen The patient was seen on 09/30/18. Subjective Chief Complaint/HPI Pt this morning states that her swallowing a little bit better. She states that she wasn't really taking the Nystatin as consistently as she should have. She states that she is tired. She has opted to no longer pursue treatment of her cancer. SHe really wishes to be kept comfortable. General: Denies: Fatigue Constitutional: Denies: Chills, Fever ENT: Reports: Dysphagia, Sore Throat Pulmonary: Denies: Dyspnea, Cough Cardiovascular: Denies: Chest Pain Gastrointestinal: Denies: Nausea Musculoskeletal: Reports: Back Pain Neurological: Reports: Weakness Psych: Reports: Mood Normal Objective Physical Examination General Exam: Positive: Alert, Cooperative, No Acute Distress, Other (appears chronically ill) Eye Exam: Negative: Sclera icteric Neck Exam: Positive: Supple Chest Exam: Positive: Clear to auscultation, Normal air movement Heart Exam: Positive: Rate Normal; Negative: Tachycardic Abdomen Exam: Positive: Normal bowel sounds, Soft; Negative: Tenderness Extremity Exam: Negative: Edema Neuro Exam: Positive: Normal Speech Psych Exam: Positive: Mental status NL Assessment /Plan Problems (1) Esophageal candidiasis Status: Acute Response to Treatment: Stable Discussed With: Nurse, Patient, Family with Pt Consent Problem Specific Plan: Monitor Clinically Problem Text: Will add Diflucan 200 mg IV today, transition to PO in a day or two once her dysphagia improves, will need 14-21 adys treatment. (2) Dysphagia Status: Acute Problem Text: 09/30 Will start Diflucan 200 mg IV daily, can transition to PO in the next day or two as her dysphagia improves. Barium Swallow pending 09/29 This has been treated during her last hospitalization with nystatin swish and swallow, antacids, and Magic Mouthwash. Despite this, patient is still complaining of persistent pain and difficulty swallowing. I ordered speech to eval and treat, and a barium swallow. She may benefit from endoscopy. (3) Poor fluid intake Status: Acute Problem Text: Most likely secondary to dysphagia, as above (4) Acute kidney injury Status: Resolved Problem Text: 09/30 This has resolved, decreased her IV rate to 75 cc/hr. 09/29 Likely secondary to recent hot weather and decreased PO intake. Improved with IV hydration. (5) History of bladder cancer Status: Chronic Problem Text: 09/30 I have had a conversation with the patient, her and dgt, her two grand dgt subsequently joined the discussion. The pt is adament that she no longer wishes to have any treatment for the cancer. She would like her thrush treated and then return home with SUPERVISORY GEOGRAPHER. 09/29 Family states that they would like to discuss with heme/onc during this admission, if possible. (6) Pathologic fracture Status: Chronic Problem Text: 09/30 pain not ideally controlled, will start Roxanol SL. 09/29 T11, secondary to metastatic bladder cancer (7) Chronic constipation Status: Chronic Problem Text: Narcotics contribute. She had a lot of trouble with constipation during her last admission; this will require monitoring. Plan/VTE VTE Prophylaxis Ordered?: Yes VS, I&O, 24H, Fishbone Vital Signs/I&O Vital Signs Date Time Temp Pulse Resp B/P (MAP) Pulse Ox O2 Delivery O2 Flow Rate FiO2 09/30/18 09:56 97.6 63 18 109/71 98 09/28/18 19:56 Room Air I&O- Last 24 Hours up to 6 AM 09/30/18 05:59 Intake Total 1400 ml Output Total 1550 ml Balance -150 ml Laboratory Data 24H LABS Laboratory Tests 2 09/30/18 05:25: Nucleated Red Blood Cells % (auto) 0.0, Anion Gap 9, Glomerular Filtration Rate > 60.0, Blood Urea Nitrogen 28#H, Creatinine 0.45#L, Sodium Level 144, Potassium Level 4.6, Chloride Level 117H, Carbon Dioxide Level 18L, Calcium Level 7.5L, Aspartate Amino Transf (AST/SGOT) 13, Alanine Aminotransferase (ALT/SGPT) 14, Alkaline Phosphatase 88, Total Bilirubin 0.5, Total Protein 5.5L, Albumin 2.4#L, Albumin/Globulin Ratio 0.77L CBC/BMP Laboratory Tests 09/30/18 05:25 Red Blood Count 2.90 L, Mean Corpuscular Volume 106.2 H, Mean Corpuscular Hemoglobin 33.1 H, Mean Corpuscular Hemoglobin Concent 31.2 L, Red Cell Distribution Width 13.1, Calcium Level 7.5 L, Aspartate Amino Transf (AST/SGOT) 13, Alanine Aminotransferase (ALT/SGPT) 14, Alkaline Phosphatase 88, Total Bilirubin 0.5, Total Protein 5.5 L, Albumin 2.4 #L GODWIN CHAMORRO PA-C Sep 30, 2018 11:59
[2018-09-30 14:00] VITALS: BP 122/58
[2018-09-30] MEDS: FLUCONAZOLE 200 MG in APPROPRIATE DILUENT 1 EA IV SCH (14:33)
[2018-09-30] MEDS: MORPHINE SULFATE ORAL SOLN 10 MG/5 ML UD SL PRN ×2 (16:08→21:43)
[2018-09-30] MEDS ORDERED: BISACODYL 10 MG SUPP PR PRN (16:15)
[2018-09-30] MEDS ORDERED: FLEET ENEMA PR PRN (16:15)
[2018-09-30] MEDS: ATENOLOL 50 MG TAB PO SCH (21:00)
[2018-09-30] MEDS: ROSUVASTATIN 10 MG TAB (CRESTOR) PO SCH (21:00)
[2018-09-30] MEDS: diphenhydrAMINE 50 MG CAP PO SCH (21:41)
[2018-09-30] MEDS: ENOXAPARIN 30 MG/0.3 ML SYR (J1650) SC SCH (21:42)
[2018-09-30 22:00] VITALS: BP 152/73
[2018-10-01] MEDS: NYSTATIN 500,000 U/5 ML SUSP UDC SS SCH ×4 (00:22→17:12)
[2018-10-01] MEDS: MORPHINE SULFATE ORAL SOLN 10 MG/5 ML UD SL PRN ×4 (00:24→20:59)
[2018-10-01 06:00] VITALS: BP 156/69
[2018-10-01 06:28] LABS: HEMATOCRIT 29.5 % (36.0-47.0); HEMOGLOBIN 9.3 g/dl (12.0-15.5); MEAN CORPUSCULAR HEMOGLOBIN 33.1 pg (27.0-33.0); MEAN CORPUSCULAR HGB CONC 31.5 g/dl (32.0-36.5); PLATELET COUNT, AUTOMATED 126 10^3/uL (150-450); RED BLOOD COUNT 2.81 10^6/uL (4.00-5.40); WHITE BLOOD COUNT 6.7 10^3/uL (4.0-10.0)
[2018-10-01 07:01] LABS: ALBUMIN 2.5 GM/DL (3.2-5.2); ALT/SGPT 12 U/L (12-78); BILIRUBIN,TOTAL 0.6 MG/DL (0.2-1.0); BLOOD UREA NITROGEN 13 MG/DL (7-18); CALCIUM LEVEL 8.3 MG/DL (8.8-10.2); CARBON DIOXIDE LEVEL 21 MEQ/L (21-32); CHLORIDE LEVEL 122 MEQ/L (98-107); CREATININE FOR GFR 0.42 MG/DL (0.55-1.30); GLOMERULAR FILTRATION RATE > 60.0 (>32); GLUCOSE, FASTING 71 MG/DL (70-100); POTASSIUM SERUM 4.1 MEQ/L (3.5-5.1); SODIUM LEVEL 134 MEQ/L (136-145); TOTAL PROTEIN 5.6 GM/DL (6.4-8.2)
--- NOTE | 2018-10-01 08:26 | IPNPDOC ---
Subjective Date Seen The patient was seen on 10/01/18. Subjective Chief Complaint/HPI Pt this morning reports minimal improvement in pain with swallowing, although she is drinking and tolerating coffee which she hasn't in sometime. General: Reports: Fatigue Constitutional: Denies: Chills, Fever Pulmonary: Denies: Dyspnea, Cough Cardiovascular: Denies: Chest Pain, Palpitations Gastrointestinal: Denies: Nausea, Vomiting, Abdominal Pain Neurological: Reports: Weakness Psych: Reports: Mood Normal Objective Physical Examination General Exam: Positive: Alert, Cooperative, No Acute Distress, Other (appears chronically ill) Eye Exam: Negative: Sclera icteric Neck Exam: Positive: Supple Chest Exam: Positive: Clear to auscultation, Normal air movement Heart Exam: Positive: Rate Normal; Negative: Tachycardic Abdomen Exam: Positive: Normal bowel sounds, Soft; Negative: Tenderness Extremity Exam: Negative: Edema Neuro Exam: Positive: Normal Speech Psych Exam: Positive: Mental status NL Assessment /Plan Problems (1) Esophageal candidiasis Status: Acute Response to Treatment: Stable Discussed With: Nurse, Patient, Family with Pt Consent Problem Specific Plan: Monitor Clinically Problem Text: 10/01 Diflucan 200 mg IV D2, hopefully she will see more improvement in the next day or so, if not should consider GI consult if pt willing to have EGD done. 09/30 Will add Diflucan 200 mg IV today, transition to PO in a day or two once her dysphagia improves, will need 14-21 adys treatment. (2) Dysphagia Status: Acute Problem Text: 10/01 See above. 09/30 Will start Diflucan 200 mg IV daily, can transition to PO in the next day or two as her dysphagia improves. Barium Swallow pending 09/29 This has been treated during her last hospitalization with nystatin swish and swallow, antacids, and Magic Mouthwash. Despite this, patient is still complaining of persistent pain and difficulty swallowing. I ordered speech to eval and treat, and a barium swallow. She may benefit from endoscopy. (3) Poor fluid intake Status: Acute Problem Text: Most likely secondary to dysphagia, as above (4) Acute kidney injury Status: Resolved Problem Text: 09/30 This has resolved, decreased her IV rate to 75 cc/hr. 09/29 Likely secondary to recent hot weather and decreased PO intake. Improved with IV hydration. (5) History of bladder cancer Status: Chronic Problem Text: 09/30 I have had a conversation with the patient, her and dgt, her two grand dgt subsequently joined the discussion. The pt is adament that she no longer wishes to have any treatment for the cancer. She would like her thrush treated and then return home with PRODUCT ASSURANCE ENGINEER. 09/29 Family states that they would like to discuss with heme/onc during this admission, if possible. (6) Pathologic fracture Status: Chronic Problem Text: 09/30 pain not ideally controlled, will start Roxanol SL. 09/29 T11, secondary to metastatic bladder cancer (7) Chronic constipation Status: Chronic Problem Text: Narcotics contribute. She had a lot of trouble with constipation during her last admission; this will require monitoring. Plan/VTE VTE Prophylaxis Ordered?: Yes VS, I&O, 24H, Fishbone Vital Signs/I&O Vital Signs Date Time Temp Pulse Resp B/P (MAP) Pulse Ox O2 Delivery O2 Flow Rate FiO2 10/01/18 06:00 97.0 70 20 156/69 (98) 98 09/28/18 19:56 Room Air I&O- Last 24 Hours up to 6 AM 10/01/18 06:00 Intake Total 2060 ml Output Total 925 ml Balance 1135 ml Laboratory Data 24H LABS Laboratory Tests 2 10/01/18 05:58: Nucleated Red Blood Cells % (auto) 0.0, Anion Gap -9L, Glomerular Filtration Rate > 60.0, Blood Urea Nitrogen 13#, Creatinine 0.42L, Sodium Level 134#L, Potassium Level 4.1, Chloride Level 122H, Carbon Dioxide Level 21, Calcium Level 8.3L, Aspartate Amino Transf (AST/SGOT) 14, Alanine Aminotransferase (ALT/SGPT) 12, Alkaline Phosphatase 94, Total Bilirubin 0.6, Total Protein 5.6L, Albumin 2.5L, Albumin/Globulin Ratio 0.81L CBC/BMP Laboratory Tests 10/01/18 05:58 Red Blood Count 2.81 L, Mean Corpuscular Volume 105.0 H, Mean Corpuscular Hemoglobin 33.1 H, Mean Corpuscular Hemoglobin Concent 31.5 L, Red Cell Distribution Width 13.1, Calcium Level 8.3 L, Aspartate Amino Transf (AST/SGOT) 14, Alanine Aminotransferase (ALT/SGPT) 12, Alkaline Phosphatase 94, Total Bilirubin 0.6, Total Protein 5.6 L, Albumin 2.5 L GODWIN CHAMORRO PA-C Oct 01, 2018 08:26
[2018-10-01] MEDS: aMILoride 5 MG TAB PO SCH (09:00)
[2018-10-01] MEDS: MAGNESIUM OXIDE 400 MG TAB (MAG-OX) PO SCH (09:00)
[2018-10-01] MEDS: VITAMIN D 1,000 INTERNATIONAL UNITS TABLET PO SCH (09:00)
[2018-10-01] MEDS: ONDANSETRON 4MG/2ML VIAL (J2405) IV PRN ×2 (09:57→14:40)
[2018-10-01] MEDS: NS 1,000 ML IV SCH (11:52)
[2018-10-01] MEDS: FLUCONAZOLE 200 MG in APPROPRIATE DILUENT 1 EA IV SCH (11:52)
[2018-10-01 14:00] VITALS: BP 149/69
--- NOTE | 2018-10-01 17:47 | REP ---
Examination Requested: Esophagram Barium Swallow Reason For Exam/Comment: Dysphasia Esophagram: The procedure was performed BANDAR Shipman, under the direct supervision of Dr. Bruner. The images were reviewed with Dr. Bruner. A single PA chest x-ray is submitted as a dry wall installer film. The superior mediastinal structures are midline. The heart size is within normal limits. The lungs are clear. Liquid barium was given in the anterior and posterior prone oblique positions, in order to perform a limited single contrast esophagram examination. Oral and pharyngeal stages of the examination were unremarkable. Esophageal transport is efficient and there is no esophagitis, stricture, or mucosal ring noted. There are mildly prominent mucosal folds of the distal esophagus. There is no hiatal hernia noted. Gastroesophageal reflux was not visualized. Impression: 1. Limited esophagram demonstrating no stricture. 2. Mildly prominent folds of the distal esophagus. 0.9 minutes of fluoroscopy time was utilized for this procedure. Some fluoroscopic images are performed with last image hold technology. These images require no additional radiation. Reviewed by BANDAR Manley 09/30/2018 05:13 P Electronically Signed by Carl Bruner MD 10/01/2018 05:37 P
[2018-10-01] MEDS: ROSUVASTATIN 10 MG TAB (CRESTOR) PO SCH (20:47)
[2018-10-01] MEDS: ATENOLOL 50 MG TAB PO SCH (20:47)
[2018-10-01] MEDS: FAMOTIDINE IV BAG 20 MG in APPROPRIATE DILUENT 1 EA IV SCH (20:59)
[2018-10-01] MEDS: ENOXAPARIN 30 MG/0.3 ML SYR (J1650) SC SCH (20:59)
[2018-10-01] MEDS: diphenhydrAMINE 50 MG CAP PO SCH (21:00)
[2018-10-01 22:00] VITALS: BP 155/80
[2018-10-02] MEDS: NYSTATIN 500,000 U/5 ML SUSP UDC SS SCH ×4 (00:11→17:49)
[2018-10-02] MEDS: MORPHINE SULFATE ORAL SOLN 10 MG/5 ML UD SL PRN ×5 (00:11→21:41)
[2018-10-02] MEDS: NS 1,000 ML IV SCH (00:17)
[2018-10-02 06:00] VITALS: BP 139/64
[2018-10-02 06:26] LABS: HEMATOCRIT 27.1 % (36.0-47.0); HEMOGLOBIN 8.6 g/dl (12.0-15.5); MEAN CORPUSCULAR HEMOGLOBIN 33.1 pg (27.0-33.0); MEAN CORPUSCULAR HGB CONC 31.7 g/dl (32.0-36.5); MEAN CORPUSCULAR VOLUME 104.2 fl (80.0-96.0); PLATELET COUNT, AUTOMATED 114 10^3/uL (150-450)
[2018-10-02] MEDS: ONDANSETRON 4MG/2ML VIAL (J2405) IV PRN (06:33)
[2018-10-02 06:56] LABS: ALBUMIN 2.3 GM/DL (3.2-5.2); ALT/SGPT 13 U/L (12-78); BILIRUBIN,TOTAL 0.7 MG/DL (0.2-1.0); BLOOD UREA NITROGEN 9 MG/DL (7-18); CALCIUM LEVEL 7.5 MG/DL (8.8-10.2); CARBON DIOXIDE LEVEL 21 MEQ/L (21-32); CHLORIDE LEVEL 112 MEQ/L (98-107); CREATININE FOR GFR 0.39 MG/DL (0.55-1.30); GLOMERULAR FILTRATION RATE > 60.0 (>32); GLUCOSE, FASTING 67 MG/DL (70-100); POTASSIUM SERUM 3.6 MEQ/L (3.5-5.1); SODIUM LEVEL 141 MEQ/L (136-145); TOTAL PROTEIN 5.1 GM/DL (6.4-8.2)
[2018-10-02] MEDS: aMILoride 5 MG TAB PO SCH (08:32)
[2018-10-02] MEDS: MAGNESIUM OXIDE 400 MG TAB (MAG-OX) PO SCH (08:33)
[2018-10-02] MEDS: VITAMIN D 1,000 INTERNATIONAL UNITS TABLET PO SCH (08:33)
--- NOTE | 2018-10-02 09:13 | IPNPDOC ---
Subjective Date Seen The patient was seen on 10/02/18. Subjective Chief Complaint/HPI Able to swallow liquids and had some Cheerios this morning - going to try something more substantial later today Had a BM after Fleets yesterday Constitutional: Denies: Chills, Fever Pulmonary: Denies: Dyspnea, Cough Cardiovascular: Denies: Chest Pain, Palpitations Gastrointestinal: Reports: Constipation (chronic); Denies: Nausea, Vomiting, Abdominal Pain, Diarrhea Objective Physical Examination General Exam: Positive: Alert, Cooperative, No Acute Distress Eye Exam: Negative: Sclera icteric Neck Exam: Positive: Supple Chest Exam: Positive: Clear to auscultation, Normal air movement Heart Exam: Positive: Rate Normal; Negative: Tachycardic Abdomen Exam: Positive: Normal bowel sounds, Soft; Negative: Tenderness Extremity Exam: Negative: Edema Neuro Exam: Positive: Normal Speech Psych Exam: Positive: Mental status NL Assessment /Plan Problems (1) Esophageal candidiasis Status: Acute Response to Treatment: Stable Discussed With: Nurse, Patient, Family with Pt Consent Problem Specific Plan: Monitor Clinically Problem Text: 10/02 Diflucan 200 mg IV D# 3 & Nystatin S & S Also getting IV Famotidine which is helping the burning in her esophagus - Swallowing improving slowly - Able to swallow liquids - hopefully will be able to tolerate something more substantial today. D/C IVF today 10/01 Diflucan 200 mg IV D2, hopefully she will see more improvement in the next day or so, if not should consider GI consult if pt willing to have EGD done. 09/30 Will add Diflucan 200 mg IV today, transition to PO in a day or two once her dysphagia improves, will need 14-21 adys treatment. (2) Dysphagia Status: Acute Response to Treatment: Improving Problem Text: 10/01 See above. 09/30 Will start Diflucan 200 mg IV daily, can transition to PO in the next day or two as her dysphagia improves. Barium Swallow pending 09/29 This has been treated during her last hospitalization with nystatin swish and swallow, antacids, and Magic Mouthwash. Despite this, patient is still complaining of persistent pain and difficulty swallowing. I ordered speech to eval and treat, and a barium swallow. She may benefit from endoscopy. (3) Poor fluid intake Status: Acute Response to Treatment: Improving Problem Text: Most likely secondary to dysphagia, as above (4) Acute kidney injury Status: Resolved Problem Text: 10/02 - D/C IVF today 09/30 This has resolved, decreased her IV rate to 75 cc/hr. 09/29 Likely secondary to recent hot weather and decreased PO intake. Improved with IV hydration. (5) History of bladder cancer Status: Chronic Problem Text: 09/30 I have had a conversation with the patient, her and dgt, her two grand dgt subsequently joined the discussion. The pt is adament that she no longer wishes to have any treatment for the cancer. She would like her thrush treated and then return home with [employer]. 09/29 Family states that they would like to discuss with heme/onc during this admission, if possible. (6) Pathologic fracture Status: Chronic Problem Text: 10/02 - pain controlled 09/30 pain not ideally controlled, will start Roxanol SL. 09/29 T11, secondary to metastatic bladder cancer (7) Chronic constipation Status: Chronic Problem Text: 10/02 - Had BM after Fleets yesterday Narcotics contribute. She had a lot of trouble with constipation during her last admission; this will require monitoring. Plan/VTE VTE Prophylaxis Ordered?: Yes Disposition D/C 10/02 if swallowing adequately and able to take pills po - Getting PT - not safe as of 10/01 VS, I&O, 24H, Fishbone Vital Signs/I&O Vital Signs Date Time Temp Pulse Resp B/P (MAP) Pulse Ox O2 Delivery O2 Flow Rate FiO2 10/02/18 07:00 18 10/02/18 06:00 99.1 79 139/64 (89) 98 10/01/18 20:59 0.0 09/28/18 19:56 Room Air I&O- Last 24 Hours up to 6 AM 10/02/18 06:00 Intake Total 2480 ml Output Total 1175 ml Balance 1305 ml Laboratory Data 24H LABS Laboratory Tests 2 10/02/18 05:28: Nucleated Red Blood Cells % (auto) 0.0, Anion Gap 8, Glomerular Filtration Rate > 60.0, Blood Urea Nitrogen 9, Creatinine 0.39L, Sodium Level 141#, Potassium Level 3.6, Chloride Level 112H, Carbon Dioxide Level 21, Calcium Level 7.5L, Aspartate Amino Transf (AST/SGOT) 13, Alanine Aminotransferase (ALT/SGPT) 13, Alkaline Phosphatase 93, Total Bilirubin 0.7, Total Protein 5.1L, Albumin 2.3L, Albumin/Globulin Ratio 0.82L CBC/BMP Laboratory Tests 10/02/18 05:28 Red Blood Count 2.60 L, Mean Corpuscular Volume 104.2 H, Mean Corpuscular Hemoglobin 33.1 H, Mean Corpuscular Hemoglobin Concent 31.7 L, Red Cell Distribution Width 13.2, Calcium Level 7.5 L, Aspartate Amino Transf (AST/SGOT) 13, Alanine Aminotransferase (ALT/SGPT) 13, Alkaline Phosphatase 93, Total Bilirubin 0.7, Total Protein 5.1 L, Albumin 2.3 L JOE COMER PA-C Oct 02, 2018 09:13
[2018-10-02] MEDS ORDERED: ONDANSETRON 4 MG ORAL DISINTEGRATING TAB (Q0162 PER 1MG) PO PRN (12:00)
[2018-10-02] MEDS: FLUCONAZOLE 200 MG in APPROPRIATE DILUENT 1 EA IV SCH (12:36)
[2018-10-02 14:00] VITALS: BP 138/67
[2018-10-02] MEDS: ROSUVASTATIN 10 MG TAB (CRESTOR) PO SCH (21:00)
[2018-10-02] MEDS: ATENOLOL 50 MG TAB PO SCH (21:00)
[2018-10-02] MEDS: diphenhydrAMINE 50 MG CAP PO SCH (21:41)
[2018-10-02] MEDS: ENOXAPARIN 30 MG/0.3 ML SYR (J1650) SC SCH (21:50)
[2018-10-02 22:00] VITALS: BP 131/65
[2018-10-03] MEDS: NYSTATIN 500,000 U/5 ML SUSP UDC SS SCH ×3 (00:18→10:56)
[2018-10-03 05:43] LABS: HEMATOCRIT 27.4 % (36.0-47.0); HEMOGLOBIN 8.8 g/dl (12.0-15.5); MEAN CORPUSCULAR HEMOGLOBIN 32.2 pg (27.0-33.0); MEAN CORPUSCULAR HGB CONC 32.1 g/dl (32.0-36.5); MEAN CORPUSCULAR VOLUME 100.4 fl (80.0-96.0); PLATELET COUNT, AUTOMATED 124 10^3/uL (150-450); RED BLOOD COUNT 2.73 10^6/uL (4.00-5.40); WHITE BLOOD COUNT 8.3 10^3/uL (4.0-10.0)
[2018-10-03 06:00] VITALS: BP 128/62
[2018-10-03 06:03] LABS: ALBUMIN 2.4 GM/DL (3.2-5.2); ALT/SGPT 15 U/L (12-78); BILIRUBIN,TOTAL 0.6 MG/DL (0.2-1.0); BLOOD UREA NITROGEN 8 MG/DL (7-18); CALCIUM LEVEL 7.7 MG/DL (8.8-10.2); CARBON DIOXIDE LEVEL 23 MEQ/L (21-32); CHLORIDE LEVEL 110 MEQ/L (98-107); CREATININE FOR GFR 0.41 MG/DL (0.55-1.30); GLOMERULAR FILTRATION RATE > 60.0 (>32); GLUCOSE, FASTING 92 MG/DL (70-100); POTASSIUM SERUM 3.5 MEQ/L (3.5-5.1); SODIUM LEVEL 142 MEQ/L (136-145); TOTAL PROTEIN 5.6 GM/DL (6.4-8.2)
[2018-10-03] MEDS ORDERED: DIFL200T PO (08:30)
[2018-10-03] MEDS ORDERED: MORP1SOL3 SL (08:30)
[2018-10-03] MEDS ORDERED: ONDA4TAB6 PO (08:30)
[2018-10-03] MEDS: VITAMIN D 1,000 INTERNATIONAL UNITS TABLET PO SCH ×2 (09:00→09:18)
[2018-10-03] MEDS: MAGNESIUM OXIDE 400 MG TAB (MAG-OX) PO SCH (09:00)
[2018-10-03] MEDS: aMILoride 5 MG TAB PO SCH (09:17)
[2018-10-03] MEDS: FAMOTIDINE IV BAG 20 MG in APPROPRIATE DILUENT 1 EA IV SCH (09:17)
[2018-10-03] MEDS: FLUCONAZOLE 200 MG in APPROPRIATE DILUENT 1 EA IV SCH (10:56)
[2018-10-03] MEDS: MORPHINE SULFATE ORAL SOLN 10 MG/5 ML UD SL PRN (12:37)
--- NOTE | 2018-10-03 18:04 | DSES ---
DATE OF ADMISSION: 09/28/2018 DATE OF DISCHARGE: 10/03/2018 HISTORY: This is an 82-year-old female patient who has metastatic bladder cancer with lung lesion who presents to [facility] Emergency Room complaining of progressive weakness and difficulty with swallowing. She was evaluated in the emergency room and felt to be mildly dehydrated with acute kidney injury and hyperkalemia. She was admitted to the hospital for further management and monitoring. Her EKG was without changes. She was started on intravenous (IV) fluids. Her potassium and serum creatinine both improved. She has undergone a swallowing study as well as an upper gastrointestinal (GI), both without any evidence of impairment, as patient has been treated for pharyngeal and esophageal candidiasis with IV Diflucan. She has received a total of four doses prior to her discharge. She will be discharged home on daily fluconazole. Recommended duration of treatment is 14-21 days. She is going to be given an additional 14 days, so she will complete 18 days of therapy. During her hospitalization, I had a discussion with the patient, her , as well as her daughter, Lindsay, and her granddaughters, Leighann and Fazal, who are registered nurses here in the hospital. Our discussion detailed her medical history as well as her prognosis. At this time the patient is adamant that she does not want further treatment in regard to her metastatic bladder cancer. She had in the past declined chemotherapy. She reluctantly agreed to some immunotherapy recently, and since that time she has had decline in her physical condition. Also, metastatic to lung and spine should be documented. The patient has elected to be discharged home on hospice. She is having an increasingly difficult time managing her independence. The patient has seen the hospice while inpatient. They are planning to perform her intake tomorrow morning, October 04, at her home. Family is eager and ready to take her home and very supportive. The patient has no additional concerns this morning. Her dysphagia is improving. She is taking liquids and soft foods. She is hopeful that she will start eating a little bit better when she gets home and has food that she enjoys available to her. DISCHARGE DIAGNOSIS: 1. Esophageal candidiasis. 2. Dysphagia. 3. Dehydration. 4. Acute kidney injury. 5. 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 6. Chronic constipation. 7. History of nicotine dependence. DISCHARGE MEDICATIONS: - Diflucan 200 mg by mouth daily - morphine sulfate 2 mg sublingually every 2 hours as needed for severe pain - Zofran ODT 4 mg by mouth every 4 hours as needed for nausea and vomiting - Tylenol 1000 mg by mouth three times a day - amiloride 5 mg by mouth daily - atenolol 50 mg by mouth at bedtime - Benadryl 50 mg by mouth at bedtime - Colace 200 mg by mouth twice a day as needed for constipation - Nexium 40 mg daily - gabapentin 300 mg three times a day - lidocaine topical patch, on for 12 hours, off for 12 hours to the back as needed for pain - magnesium oxide 400 mg daily - nystatin swish and swallow 5 mL every 6 hours - MiraLax 17 grams by mouth daily as needed for constipation - Crestor 20 mg by mouth at bedtime - vitamin D 1000 units by mouth daily DISCHARGE PLAN: Followup with her primary care physician (PCP), Kenyatta Muñoz as needed. Her activity should be as tolerated. Her diet is soft mechanical She is discharged home for hospice care. I have spoken with the patient and her family, who are eager to take her home. They are aware that they can call me for any needs in the future.
== END 2018-10-03 13:30 | disposition home or self-care (01) | DRG 369 ==
LOC: M ED 16:28 → M ED INP 18:34 → M MSPAV 20:20
PROVIDERS: ADMIT Hospitalist; ATTEND Family Medicine
DX: B37.81 Candidal esophagitis (principal); C78.00 Secondary malignant neoplasm of unspecified lung; N17.9 Acute kidney failure, unspecified; C79.51 Secondary malignant neoplasm of bone; M84.58XD Pathological fracture in neoplastic disease, other specified site, subsequent encounter for fracture with routine healing; R13.10 Dysphagia, unspecified; E87.5 Hyperkalemia; M54.5 Low back pain; C67.9 Malignant neoplasm of bladder, unspecified; Z66 Do not resuscitate; K21.9 Gastro-esophageal reflux disease without esophagitis; I10 Essential (primary) hypertension; E86.0 Dehydration; E78.5 Hyperlipidemia, unspecified; G62.9 Polyneuropathy, unspecified; M81.0 Age-related osteoporosis without current pathological fracture; K59.09 Other constipation; D53.9 Nutritional anemia, unspecified; T40.605A Adverse effect of unspecified narcotics, initial encounter; Z87.891 Personal history of nicotine dependence